=== PATIENT | male | born 1970 | race Caucasian/White ===

== ENCOUNTER 2017-04-14 19:10 | Inpatient (IN) | payer OTHER ==
[~2017-04-14] VITALS: Ht 175.3 cm; Wt 90.0 kg
[2017-04-14 19:18] VITALS: BP 145/96; PULSE 120; RESP 24; TEMP 98.4; O2SAT 95
[2017-04-14 19:23] VITALS: RESP 24; O2SAT 91
[2017-04-14] MEDS ORDERED: ONDANSETRON HCL 4 MG/2 ML VIAL IV PUSH ONE (19:30)
[2017-04-14] MEDS ORDERED: HYDROmorphone HCL PF 1 MG/ML VIAL IV PUSH ONE (19:30)
[2017-04-14] MEDS ORDERED: ASPIRIN 325 MG TAB PO ONE (19:30)
--- NOTE | 2017-04-14 19:38 | PD ---
Physical Exam Narrative General: The patient is a well-developed well-nourished male, uncomfortable appearing on arrival related to pain reportedly on the left lateral chest. Head and Neck exam: Head is normocephalic atraumatic. Eyes: EOMI, pupils are equal round and reactive to light. Nose: Midline septum with pink mucous membranes Mouth: Dentition unremarkable. Moist mucus membranes. Posterior oropharynx is not erythematous. No tonsillar hypertrophy. Uvula midline. Airway patent. Neck: No palpable lymphadenopathy. No nuchal rigidity. No thyromegaly. Cardiovascular: Sinus tachycardia in the low 100 without murmurs, gallops, or rubs. No pulse deficit to the extremities and femoral tenderness auscultation and palpation of his radial artery. No chest wall tenderness on palpation. No step-off or crepitus. No erythema or ecchymosis. Lungs: The patient is splinting his breathing. The patient has no wheezes, rhonchi, or crackles audible. The patient has diminished breath sounds on the left lower lung base compared to the left side. Abdomen: Soft, without tenderness to palpation in all 4 quadrants of the abdomen. No guarding, rebound, or rigidity. Normal bowel sounds are audible. No tenderness on palpation of McBurney's point. Negative Dodd sign. Extremities: No clubbing, cyanosis, or edema. 2+ pulses in all 4 extremities. No calf tenderness on palpation. Negative Homans sign. No palpable cords. Back: No costovertebral angle tenderness to palpation. Neurologic Exam: Grossly nonfocal. Skin Exam: No rash noted. Intact skin that is warm and dry. Data Data Last Documented VS Vital Signs Date Time Temp Pulse Resp B/P Pulse Ox O2 Delivery O2 Flow Rate FiO2 04/14/17 20:00 145/96 147/94 04/14/17 19:23 24 91 Room Air 04/14/17 19:23 3 04/14/17 19:18 98.4 120 Orders Electrocardiogram (04/14/17 19:18) Basic Metabolic Panel (Bmp) (04/14/17 19:18) Ckmb (Isoenzyme) Profile (04/14/17 19:18) Complete Blood Count With Diff (04/14/17 19:18) Magnesium (Mg) (04/14/17 19:18) Prothrombin Time / Inr (Pt) (04/14/17 19:18) Act Partial Throm Time (Ptt) (04/14/17 19:18) Troponin I (04/14/17 19:18) Lipase (04/14/17 19:18) Chest, Single Ap (04/14/17 19:18) Ecg Monitoring (04/14/17 19:18) Bilateral Bp Monitoring (04/14/17 19:18) Iv Access Insert/Monitor (04/14/17 19:18) Oximetry (04/14/17 19:18) Oxygen Administration (04/14/17 19:18) Aspirin (Aspirin) (04/14/17 19:30) Ct Pulmonary Angiogram (04/14/17 19:18) Hydromorphone Pf Inj (Dilaudid Pf Inj) (04/14/17 19:30) Ondansetron Inj (Zofran Inj) (04/14/17 19:30) Blood Culture (04/14/17 19:52) Lactic Acid Sepsis Protocol (04/14/17 19:52) Ceftriaxone Inj (Rocephin Inj) (04/14/17 20:00) Azithromycin Inj (Zithromax Inj) (04/14/17 20:00) Protein Corrected Calcium(Pcc) (04/14/17 19:35) Calcium Gluconate Inj (Calcium Gluconate (04/14/17 20:30) Arterial Blood Gas (Abg) (04/14/17 ) Potassium Chloride (Kcl) (04/14/17 21:00) Iohexol 350 Inj (Omnipaque 350 Inj) (04/14/17 21:24) B-Type Natriuretic Peptide (04/14/17 21:54) Admit Order (Ed Use Only) (04/14/17 21:57) Labs Laboratory Tests Test 04/14/17 04/14/17 04/14/17 19:35 20:40 20:47 White Blood Count 15.1 TH/MM3 Red Blood Count 4.29 MIL/MM3 Hemoglobin 12.0 GM/DL Hematocrit 36.6 % Mean Corpuscular Volume 85.3 FL Mean Corpuscular Hemoglobin 28.0 PG Mean Corpuscular Hemoglobin 32.8 % Concent Red Cell Distribution Width 14.1 % Platelet Count 338 TH/MM3 Mean Platelet Volume 8.1 FL Neutrophils (%) (Auto) 68.5 % Lymphocytes (%) (Auto) 19.0 % Monocytes (%) (Auto) 6.4 % Eosinophils (%) (Auto) 4.9 % Basophils (%) (Auto) 1.2 % Neutrophils # (Auto) 10.4 TH/MM3 Lymphocytes # (Auto) 2.9 TH/MM3 Monocytes # (Auto) 1.0 TH/MM3 Eosinophils # (Auto) 0.7 TH/MM3 Basophils # (Auto) 0.2 TH/MM3 CBC Comment AUTO DIFF Differential Comment AUTO DIFF CONFIRMED Prothrombin Time 10.6 SEC Prothromb Time International 1.0 RATIO Ratio Activated Partial 26.4 SEC Thromboplast Time Sodium Level 143 MEQ/L Potassium Level 2.9 MEQ/L Chloride Level 114 MEQ/L Carbon Dioxide Level 20.3 MEQ/L Anion Gap 9 MEQ/L Blood Urea Nitrogen 15 MG/DL Creatinine 0.45 MG/DL Estimat Glomerular Filtration 200 ML/MIN Rate Random Glucose 79 MG/DL Calcium Level 5.9 MG/DL Protein Corrected Calcium 6.7 MG/DL Magnesium Level 1.5 MG/DL Total Creatine Kinase 50 U/L Troponin I LESS THAN 0.02 NG/ML B-Type Natriuretic Peptide 6 PG/ML Total Protein 5.2 GM/DL Lipase 99 U/L Blood Gas Puncture Site RT RADIAL Blood Gas Patient Temperature 98.6 Blood Gas HCO3 24 mmol/L Blood Gas Base Excess -0.2 mmol/L Blood Gas Oxygen Saturation 92 % Arterial Blood pH 7.38 Arterial Blood Partial 43 mmHg Pressure CO2 Arterial Blood Partial 71 mmHG Pressure O2 Arterial Blood Oxygen Content 17.9 Vol % Arterial Blood 0.7 % Carboxyhemoglobin Arterial Blood Methemoglobin 0.9 % Blood Gas Hemoglobin 13.8 G/DL Oxygen Delivery Device NASAL CANNULA Blood Gas Liter Flow 4 L/M Lactic Acid Level 0.7 mmol/L [facility] Medical Record Reviewed: Yes Supervised Visit with CONCEPCIÓN: Yes Interpretation(s) Last Impressions Chest X-Ray 04/14/171917 Signed Impressions: Service Date/Time: Friday, April 14, 2017 19:28 - CONCLUSION: 1. Left basal airspace disease. Differential diagnosis includes pneumonia. Minimal right basilar atelectasis. Rowdy Mckinley MD CT Angiography 04/14/171917 Signed Impressions: Service Date/Time: Friday, April 14, 2017 21:22 - CONCLUSION: 1. Study limited by motion artifact and contrast bolus but no large central emboli are identified. 2. Moderate left effusion and compressive atelectasis posteriorly in the left lung. Moderate coronary calcifications. Rowdy Mckinley MD Narrative Course I, Dr. Alvarez, have reviewed the advance practice practitioner's documentation and am in agreement, met with the patient face to face, made the diagnosis, and the medical decision making was done by me. The patient was initially evaluated by Moises. Please see his complete history and physical. *My assessment and Findings: The patient is a 47-year-old male who presents to [facility] emergency Department with a history of sudden onset of left lower lateral chest pain while driving prior to arrival. The patient reports that he's been sick for the last couple of weeks. Initially he began to have a generalized rash that was thought to be related to a contact dermatitis treated with topical steroids and then oral antibiotic of Bactrim due to concern for superimposed bacterial infection. Then, a week ago the patient developed a cough with congestion. He reports that the cough is intermittently been productive of felix sputum. He denies smoking. He reports that in childhood he did have some respiratory problems related to allergies, however he denies any recent respiratory problems. The patient reports that he completed his Bactrim course of week ago. The patient denies having any history of DVT, PE, or coronary artery disease. He denies having any family history of DVT or PE. During the course of the patients emergency department visit, the patients history, examination, and differential diagnosis were reviewed with the patient. The patient had IV access obtained and blood work sent for analysis. The patient was placed on a vehicle monitor technician with oximetry and blood pressure monitoring. A chest x-ray was done. The patient was initially provided hydromorphone for pain, Zofran for nausea. The patients laboratory studies were reviewed and remarkable for a white count of 15.1, hemoglobin 12, platelets 338 with 4.9 eosinophils, CMP is remarkable for potassium of 2.9 which was supplemented orally, CO2 20.3, BUN 15, creatinine 0.45, lactic acid 0.7, calcium 5.9, protein corrected calcium 6.7, CPK 50, troponin I less than 0.02, BNP is 6, lipase 99, PT PTT within normal limits. Radiology studies were reviewed and remarkable for a chest x-ray that shows a left basilar airspace abnormality which could be related to pneumonia given the patient's recent cough. The patient had blood cultures 2 ordered. The patient was given Rocephin 1 g IV, Zithromax 500 IV. CTA to rule out pulmonary embolism shows a that was limited by motion artifact and contrast bolus, but no large central emboli are identified. Moderate left effusion and compressive atelectasis posteriorly in the left lung. Moderate coronary calcifications. The patients results were discussed with the patient, including the plan of care. I explained that further testing and/ or monitoring is indicated based on the patients history, examination, and/ or laboratory findings. Therefore, I recommended admission for additional evaluation. The patient expressed understanding and was agreeable with this plan. The patient was admitted to the hospital in guarded condition and sent to a bed under the care of the [facility]. Sepsis Criteria SIRS Criteria (2 or more): Heart rate over 90, RR > 20 or PaCO2 < 32, WBC > 57815, < 4000 or > 10% bands Sepsis Criteria (SIRS+source): Infect source susp/known Criteria Outcome: Meets SIRS criteria, Meets sepsis criteria Diagnosis Primary Impression: Pleural effusion Additional Impression: Shortness of breath Marley Alvarez MD Apr 14, 2017 19:38
--- NOTE | 2017-04-14 19:38 | PD ---
HPI Chief Complaint: Abdominal Pain Time Seen by Provider: 19:35 Travel History International Travel<30 days: No Contact w/Intl Traveler<30days: No Traveled to known affect area: No History of Present Illness HPI 47-year-old male that presents to the ED for evaluation of severe left rib pain. Per patient is [place] The patient was so severe he had to stop his car and he called the ambulance on the way. Ambulance brought him here. Per patient the pain is a result with touch and has a similar shortness of breath. No history of this in the past. No history of heart disease. No radiation of the pain. Patient is diaphoretic. Patient was given morphine with minimal relief of his discomfort. He denies any lightheadedness or dizziness. He states that the pain is 10 out of 10. No history of this in the past. No history of blood clots. Takes no medications. Her blood pressure. States that he lives seen [place]. He has no allergies to medication. No abdominal pain. No urinary or bowel movement issues. PFSH Past Medical History Medical History: Denies Significant Hx Diminished Hearing: No Past Surgical History Surgical History: No Previous Surgery Social History Alcohol Use: No Tobacco Use: No (never) Substance Use: No Allergies-Medications (Allergen,Severity, Reaction): Coded Allergies: No Known Allergies (Unverified , 04/14/17) Review of Systems Except as stated in HPI: all other systems reviewed are Neg Physical Exam Narrative GENERAL: SKIN: Warm and dry. HEAD: Atraumatic. Normocephalic. EYES: Pupils equal and round. No scleral icterus. No injection or drainage. ENT: No nasal bleeding or discharge. Mucous membranes pink and moist. Tongue is midline. No uvula deviation. NECK: Trachea midline. No JVD. CARDIOVASCULAR: Regular rate and rhythm. No murmurs, S3, S4. RESPIRATORY: No accessory muscle use. Clear to auscultation. Breath sounds equal bilaterally. GASTROINTESTINAL: Abdomen soft, non-tender, nondistended. Hepatic and splenic margins not palpable. MUSCULOSKELETAL: Extremities without clubbing, cyanosis, or edema. No obvious deformities. Full range of motion of the upper and lower extremities bilaterally. 2+ pulses bilaterally. Patient has reproducible left rib pain. NEUROLOGICAL: Awake and alert. No obvious cranial nerve deficits. Motor grossly within normal limits. Five out of 5 muscle strength in the arms and legs. Normal speech. PSYCHIATRIC: Appropriate mood and affect; insight and judgment normal. Data Data Last Documented VS Vital Signs Date Time Temp Pulse Resp B/P Pulse Ox O2 Delivery O2 Flow Rate FiO2 04/14/17 20:00 145/96 147/94 04/14/17 19:23 24 91 Room Air 04/14/17 19:23 3 04/14/17 19:18 98.4 120 Orders Electrocardiogram (04/14/17 19:18) Basic Metabolic Panel (Bmp) (04/14/17 19:18) Ckmb (Isoenzyme) Profile (04/14/17 19:18) Complete Blood Count With Diff (04/14/17 19:18) Magnesium (Mg) (04/14/17 19:18) Prothrombin Time / Inr (Pt) (04/14/17 19:18) Act Partial Throm Time (Ptt) (04/14/17 19:18) Troponin I (04/14/17 19:18) Lipase (04/14/17 19:18) Chest, Single Ap (04/14/17 19:18) Ecg Monitoring (04/14/17 19:18) Bilateral Bp Monitoring (04/14/17 19:18) Iv Access Insert/Monitor (04/14/17 19:18) Oximetry (04/14/17 19:18) Oxygen Administration (04/14/17 19:18) Aspirin (Aspirin) (04/14/17 19:30) Ct Pulmonary Angiogram (04/14/17 19:18) Hydromorphone Pf Inj (Dilaudid Pf Inj) (04/14/17 19:30) Ondansetron Inj (Zofran Inj) (04/14/17 19:30) Blood Culture (04/14/17 19:52) Lactic Acid Sepsis Protocol (04/14/17 19:52) Ceftriaxone Inj (Rocephin Inj) (04/14/17 20:00) Azithromycin Inj (Zithromax Inj) (04/14/17 20:00) Protein Corrected Calcium(Pcc) (04/14/17 19:35) Calcium Gluconate Inj (Calcium Gluconate (04/14/17 20:30) Arterial Blood Gas (Abg) (04/14/17 ) Potassium Chloride (Kcl) (04/14/17 21:00) Iohexol 350 Inj (Omnipaque 350 Inj) (04/14/17 21:24) B-Type Natriuretic Peptide (04/14/17 21:54) Admit Order (Ed Use Only) (04/14/17 21:57) Labs Laboratory Tests Test 04/14/17 04/14/17 04/14/17 19:35 20:40 20:47 White Blood Count 15.1 TH/MM3 Red Blood Count 4.29 MIL/MM3 Hemoglobin 12.0 GM/DL Hematocrit 36.6 % Mean Corpuscular Volume 85.3 FL Mean Corpuscular Hemoglobin 28.0 PG Mean Corpuscular Hemoglobin 32.8 % Concent Red Cell Distribution Width 14.1 % Platelet Count 338 TH/MM3 Mean Platelet Volume 8.1 FL Neutrophils (%) (Auto) 68.5 % Lymphocytes (%) (Auto) 19.0 % Monocytes (%) (Auto) 6.4 % Eosinophils (%) (Auto) 4.9 % Basophils (%) (Auto) 1.2 % Neutrophils # (Auto) 10.4 TH/MM3 Lymphocytes # (Auto) 2.9 TH/MM3 Monocytes # (Auto) 1.0 TH/MM3 Eosinophils # (Auto) 0.7 TH/MM3 Basophils # (Auto) 0.2 TH/MM3 CBC Comment AUTO DIFF Differential Comment AUTO DIFF CONFIRMED Prothrombin Time 10.6 SEC Prothromb Time International 1.0 RATIO Ratio Activated Partial 26.4 SEC Thromboplast Time Sodium Level 143 MEQ/L Potassium Level 2.9 MEQ/L Chloride Level 114 MEQ/L Carbon Dioxide Level 20.3 MEQ/L Anion Gap 9 MEQ/L Blood Urea Nitrogen 15 MG/DL Creatinine 0.45 MG/DL Estimat Glomerular Filtration 200 ML/MIN Rate Random Glucose 79 MG/DL Calcium Level 5.9 MG/DL Protein Corrected Calcium 6.7 MG/DL Magnesium Level 1.5 MG/DL Total Creatine Kinase 50 U/L Troponin I LESS THAN 0.02 NG/ML Total Protein 5.2 GM/DL Lipase 99 U/L Blood Gas Puncture Site RT RADIAL Blood Gas Patient Temperature 98.6 Blood Gas HCO3 24 mmol/L Blood Gas Base Excess -0.2 mmol/L Blood Gas Oxygen Saturation 92 % Arterial Blood pH 7.38 Arterial Blood Partial 43 mmHg Pressure CO2 Arterial Blood Partial 71 mmHG Pressure O2 Arterial Blood Oxygen Content 17.9 Vol % Arterial Blood 0.7 % Carboxyhemoglobin Arterial Blood Methemoglobin 0.9 % Blood Gas Hemoglobin 13.8 G/DL Oxygen Delivery Device NASAL CANNULA Blood Gas Liter Flow 4 L/M Lactic Acid Level 0.7 mmol/L MDM Medical Decision Making Medical Screen Exam Complete: Yes Emergency Medical Condition: Yes Medical Record Reviewed: Yes Interpretation(s) CBC & BMP Diagram 04/14/17 19:35 EKG shows sinus tachycardia. No sign of acute ischemia or arrhythmia read by me and attending. Last Impressions Chest X-Ray 04/14/171917 Signed Impressions: Service Date/Time: Friday, April 14, 2017 19:28 - CONCLUSION: 1. Left basal airspace disease. Differential diagnosis includes pneumonia. Minimal right basilar atelectasis. Rowdy Mckinley MD CT pulm shows no emboli, but moderate left effusion and compressive atelectasis posteriorly in the left lung. Moderate coronary calcifications. troponin and CKMB negative coags WNL Differential Diagnosis ACS versus PE versus pleurisy versus pneumothorax versus pneumonia versus ACS versus a typical chest pain versus pancreatitis Narrative Course 47-year-old male that presents to the ED for evaluation of severe left-sided chest pain. Patient was properly examined and was found to have signs and symptoms of unclear etiology. Definite concerning for ACS versus PE. Patient is tachycardic and diaphoretic with low oxygenation. Patient states having shortness of breath as well. No history of cardiac other than hypertension. Labs and imaging were ordered. Patient was ordered Dilaudid for pain as well as aspirin to cover for cardiac. Labs and imaging showed no pulmonary embolism but what appears to be a moderate left effusion on the left side. Case was discussed in my attending Dr. Alvarez who evaluated the patient with me and agrees with plan. She started the patient on antibiotics to cover for pneumonia. Patient will be admitted for further workup of the effusion and possible infection. Case was discussed with the patient and family who are in agreement with plan. JAZMIN was paged and Dr. Velasquez agrees to admission. Sepsis Criteria SIRS Criteria (2 or more): Heart rate over 90, WBC > 80530, < 4000 or > 10% bands Sepsis Criteria (SIRS+source): Infect source susp/known Criteria Outcome: Meets severe sepsis criteria Diagnosis Primary Impression: Pleural effusion Additional Impressions: Shortness of breath Sepsis Qualified Code: A41.9 - Sepsis, due to unspecified organism Admitting Information Admitting Physician Requests: Admit Coleman Em Apr 14, 2017 19:38
--- NOTE | 2017-04-14 19:49 | RADRPT ---
EXAM DATE/TIME: 04/14/2017 19:28 [facility] COMPARISON: No previous studies available for comparison. INDICATIONS : Left side chest pain, denies injury MEDICAL HISTORY : Hypertension. SURGICAL HISTORY : None. ENCOUNTER: Initial ACUITY: 1 day PAIN SCORE: 9/10 LOCATION: Left chest FINDINGS: There is some ill-defined airspace disease at the left lung base partially obscuring the left hemidia phragm. Minimal right basal atelectasis. No significant effusion. No pneumothorax. CONCLUSION: 1. Left basal airspace disease. Differential diagnosis includes pneumonia. Minimal right basilar atel ectasis. Rowdy Mckinley MD on April 14, 2017 at 19:46 Board Certified Radiologist. This report was verified electronically.
[2017-04-14 19:55] LABS: AUTOMATED NEUTROPHIL # 10.4 TH/MM3 (1.8-7.7); BASOPHIL # 0.2 TH/MM3 (0-0.2); BASOPHIL % 1.2 % (0.0-2.0); EOSINOPHIL # 0.7 TH/MM3 (0-0.4); EOSINOPHIL % 4.9 % (0.0-4.0); HEMATOCRIT 36.6 % (39.0-51.0); LYMPHOCYTE # 2.9 TH/MM3 (1.0-4.8); MEAN CELL VOLUME 85.3 FL (80.0-100.0); MEAN CORPUSCULAR HGB CONC 32.8 % (32.0-36.0); MONO % 6.4 % (0.0-8.0); NEUT % 68.5 % (16.0-70.0); PLATELET COUNT 338 TH/MM3 (150-450); RED BLOOD COUNT 4.29 MIL/MM3 (4.50-5.90); RED CELL DISTRIBUTION WIDTH 14.1 % (11.6-17.2); WHITE BLOOD COUNT 15.1 TH/MM3 (4.0-11.0)
[2017-04-14 19:58] LABS: HEMO FLAGS AUTO DIFF
[2017-04-14 20:00] VITALS: BP_SYST 145; BP_SYST 147; BP_DIAS 94; BP_DIAS 96
[2017-04-14] MEDS ORDERED: cefTRIAXone INJ 1,000 MG in SODIUM CHLORIDE 0.9% INJ 100 ML IV ONE (20:00)
[2017-04-14] MEDS ORDERED: AZITHROMYCIN INJ 500 MG in SODIUM CHLOR 0.9% 250 ML INJ 250 ML IV ONE (20:00)
[2017-04-14 20:09] LABS: APTT (PATIENT) 26.4 SEC (24.3-30.1); PROTHROMBIN TIME - PATIENT 10.6 SEC (9.8-11.6)
[2017-04-14 20:13] LABS: ANION GAP 9 MEQ/L (5-15); BICARBONATE 20.3 MEQ/L (21.0-32.0); BLOOD UREA NITROGEN 15 MG/DL (7-18); CHLORIDE 114 MEQ/L (98-107); GLOMERULAR FILTRATION RATE 200 ML/MIN (>89); MAGNESIUM 1.5 MG/DL (1.5-2.5); SODIUM (NA) 143 MEQ/L (136-145)
[2017-04-14] MEDS ORDERED: CALCIUM GLUCONATE INJ 1 GM in DEXTROSE 5% IN WATER 100ML INJ 100 ML IV ONE ×2 (20:30)
[2017-04-14 20:32] LABS: SCAN/DIFF AUTO DIFF CONFIRMED
[2017-04-14 20:55] LABS: BLOOD GAS BASE EXCESS -0.2 mmol/L (-2-2); BLOOD GAS CARBOXYHEMOGLOBIN 0.7 % (0-4); BLOOD GAS HCO3 24 mmol/L (22-26); BLOOD GAS METHEMOGLOBIN 0.9 % (0-2); BLOOD GAS O2 HGB SATURATION 92 % (90-100); BLOOD GAS OXYGEN CONTENT 17.9 Vol % (12.0-20.0); BLOOD GAS PCO2 43 mmHg (38-42); BLOOD GAS PO2 71 mmHG (61-120); BLOOD GAS TOTAL HGB 13.8 G/DL (12.0-16.0); CRITICAL VALUE NO; DRAW SITE RT RADIAL; LITER FLOW 4 L/M; NUMBER OF ARTERIAL PUNCTURES 1; OXYGEN DEVICE NASAL CANNULA; STAT YES; TEMP CORR TO 98.6; ULNAR PULSE PRESENT
[2017-04-14 20:57] LABS: CREATINE KINASE 50 U/L (39-308)
[2017-04-14 20:59] LABS: CALCIUM-PROTEIN CORRECTED 6.7 MG/DL (8.5-10.1); POTASSIUM 2.9 MEQ/L (3.5-5.1)
[2017-04-14] MEDS ORDERED: POTASSIUM CHLORIDE 10 MEQ CONTROLLED RELEASE TAB PO ONE (21:00)
[2017-04-14] MEDS ORDERED: IOHEXOL 350 MG/ML 10 ML VIAL (for RAD DIAG) IV ONE (21:24)
--- NOTE | 2017-04-14 21:41 | RADRPT ---
EXAM DATE/TIME: 04/14/2017 21:22 [facility] COMPARISON: No previous studies available for comparison. INDICATIONS : Left sided pain; dyspnea. IV CONTRAST: 80 cc Omnipaque 350 (iohexol) IV RADIATION DOSE: 23.17 CTDIvol (mGy) MEDICAL HISTORY : None SURGICAL HISTORY : None. ENCOUNTER: Initial ACUITY: 1 day PAIN SCALE: 10/10 LOCATION: Left lower chest TECHNIQUE: Volumetric scanning of the chest was performed using a pulmonary embolism protocol MIP images were re constructed. Using automated exposure control and adjustment of the mA and/or kV according to patien t size, radiation dose was kept as low as reasonably achievable to obtain optimal diagnostic quality images. DICOM format image data is available electronically for review and comparison. Follow-up recommendations for incidentally detected pulmonary nodules are based at a minimum on nodul e size and patient risk factors according to Fleischner Society Guidelines. FINDINGS: No filling defects identified centrally to suggest pulmonary embolic disease. Segmental vessels are n ot well evaluated due to motion artifact and contrast bolus. There is a moderate-sized left effusion and compressive atelectasis in the left posterior lung. No pn eumothorax. Heart size enlarged. Mild esophageal dilatation characteristic of an esophageal motility disorder. Moderate coronary calcifications. No acute findings in the upper abdomen. CONCLUSION: 1. Study limited by motion artifact and contrast bolus but no large central emboli are identified. 2. Moderate left effusion and compressive atelectasis posteriorly in the left lung. Moderate coronary calcifications. Rowdy Mckinley MD on April 14, 2017 at 21:36 Board Certified Radiologist. This report was verified electronically.
[2017-04-14] MEDS ORDERED: RESP: ALBUTEROL 2.5 MG/IPRATROPIUM 0.5 MG NEB (PRN) NEB (22:15)
[2017-04-14] MEDS ORDERED: BISACODYL 10 MG SUPP RECTAL PRN (22:15)
[2017-04-14] MEDS ORDERED: SODIUM CHLORIDE 0.9% FLUSH 10 ML FLUSH IV FLUSH PRN (22:15)
[2017-04-14] MEDS ORDERED: ONDANSETRON HCL 4 MG/2 ML VIAL IVP PRN (22:15)
[2017-04-14] MEDS ORDERED: LACTULOSE SYRUP 20 GM/30 ML CUP PO PRN (22:15)
[2017-04-14] MEDS ORDERED: MAGNESIUM HYDROXIDE SUSP 30 ML CUP PO PRN (22:15)
[2017-04-14] MEDS ORDERED: ACETAMINOPHEN 325 MG TAB PO PRN (22:15)
[2017-04-14] MEDS ORDERED: SENNOSIDES 8.6 MG TAB PO PRN (22:15)
--- NOTE | 2017-04-14 22:21 | HHI.HP ---
[facility] Unknown Admission Diagnosis acute left sided pleural effusion, SOB, sepsis Diagnoses: (1) Sepsis Diagnosis: Principal (2) PNA (pneumonia) Diagnosis: Principal (3) Pleural effusion Diagnosis: Principal (4) Hypocalcemia Diagnosis: Principal (5) Hypokalemia Diagnosis: Principal Travel History International Travel<30 Days: No Contact w/Intl Traveler <30 Da: No Traveled to Known Affected Are: No History of Present Illness This is a 47-year-old male with no significant PMH who was brought to the ER by EMS secondary to complaints of severe SOB and left-sided rib pain while driving on the highway. 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 No previous history of similar symptoms in the past. States he has been "feeling sick" x1 wk w/ subjective fever, chills and productive cough w/ yellow-mackenzie colored sputum. Did not seek medical attention for symptoms, not on antibiotics. Does report previous exposure to Poison [place], seen by [facility] [employer] and started on topical steroids with improvement. States symptoms started shortly after rash. On arrival, BP 145/96, HR 120, O2 sat 91% on RA, Afebrile. WBC 15.1. K+ 2.9. Ca 5.9. ABG unremarkable. CXR w/ left basal airspace disease, possibly pneumonia. CTA Pulm w/ no evidence of central emboli, moderate large effusion and compressive atelectasis on left w/ moderate coronary calcifications. S/p Rocephin/Zithro in ER. Pt denies h/o pleural effusion, no h/o CHF. Review of Systems Except as stated in HPI: all other systems reviewed are Neg ROS: 14 point review of systems otherwise negative. Past Family Social History Past Medical History PMH: None Past Surgical History PAST SURGICAL HISTORY: None Allergies: Coded Allergies: No Known Allergies (Unverified , 04/14/17) Family History PAST FAMILY HISTORY: Reviewed. No h/o DM or CAD Social History PAST SOCIAL HISTORY: Negative for alcohol, tobacco or drugs. Physical Exam Vital Signs Vital Signs Date Time Temp Pulse Resp B/P Pulse Ox O2 Delivery O2 Flow Rate FiO2 04/14/17 20:00 145/96 147/94 04/14/17 19:23 24 91 Room Air 04/14/17 19:23 96 Nasal Cannula 3 04/14/17 19:18 98.4 120 24 145/96 95 Physical Exam PE: GENERAL: Very pleasant middle-aged male in mild distress secondary to complaints of pain with inspiration, shallow breaths. HEENT: PERRLA, EOMI. No scleral icterus or conjunctival pallor. No lid lag or facial droop. CARDIOVASCULAR: Regular rate and rhythm. No obvious murmurs to auscultation. No chest tenderness to palpation. RESPIRATORY: No obvious rhonchi or wheezing. Clear to auscultation. Decreased breath sounds on the left. GASTROINTESTINAL: Abdomen soft, non-tender, nondistended. BS normal. MUSCULOSKELETAL: Extremities without clubbing, cyanosis, or edema. No obvious deformities. NEUROLOGICAL: Awake, alert and oriented x4. No focal neurologic deficits. Moving both upper and lower extremities spontaneously. Laboratory Laboratory Tests Test 04/14/17 04/14/17 04/14/17 19:35 20:40 20:47 White Blood Count 15.1 Red Blood Count 4.29 Hemoglobin 12.0 Hematocrit 36.6 Mean Corpuscular Volume 85.3 Mean Corpuscular Hemoglobin 28.0 Mean Corpuscular Hemoglobin 32.8 Concent Red Cell Distribution Width 14.1 Platelet Count 338 Mean Platelet Volume 8.1 Neutrophils (%) (Auto) 68.5 Lymphocytes (%) (Auto) 19.0 Monocytes (%) (Auto) 6.4 Eosinophils (%) (Auto) 4.9 Basophils (%) (Auto) 1.2 Neutrophils # (Auto) 10.4 Lymphocytes # (Auto) 2.9 Monocytes # (Auto) 1.0 Eosinophils # (Auto) 0.7 Basophils # (Auto) 0.2 CBC Comment AUTO DIFF Differential Comment AUTO DIFF CONFIRMED Prothrombin Time 10.6 Prothromb Time International 1.0 Ratio Activated Partial 26.4 Thromboplast Time Sodium Level 143 Potassium Level 2.9 Chloride Level 114 Carbon Dioxide Level 20.3 Anion Gap 9 Blood Urea Nitrogen 15 Creatinine 0.45 Estimat Glomerular Filtration 200 Rate Random Glucose 79 Calcium Level 5.9 Protein Corrected Calcium 6.7 Magnesium Level 1.5 Total Creatine Kinase 50 Troponin I LESS THAN 0.02 Total Protein 5.2 Lipase 99 Blood Gas Puncture Site RT RADIAL Blood Gas Patient Temperature 98.6 Blood Gas HCO3 24 Blood Gas Base Excess -0.2 Blood Gas Oxygen Saturation 92 Arterial Blood pH 7.38 Arterial Blood Partial 43 Pressure CO2 Arterial Blood Partial 71 Pressure O2 Arterial Blood Oxygen Content 17.9 Arterial Blood 0.7 Carboxyhemoglobin Arterial Blood Methemoglobin 0.9 Blood Gas Hemoglobin 13.8 Oxygen Delivery Device NASAL CANNULA Blood Gas Liter Flow 4 Lactic Acid Level 0.7 Date/Time Procedure Status Source Growth 04/14/17 20:45 Aerobic Blood Culture Received Blood Peripheral Pending 04/14/17 20:45 Anaerobic Blood Culture Received Blood Peripheral Pending Result Diagram: 04/14/17193404/14/171934 Assessment and Plan Problem List: (1) Sepsis ICD Code: A41.9 Status: Acute (2) PNA (pneumonia) ICD Code: J18.9 Status: Acute (3) Pleural effusion ICD Code: J90 Status: Acute (4) Hypocalcemia ICD Code: E83.51 Status: Acute (5) Hypokalemia ICD Code: E87.6 Status: Acute Assessment and Plan A/P: 1. Sepsis: HR 120's, RR 24, WBC 15, Source-presumed PNA. S/p Blood Culture, Rocephin/Zithro in ER. Follow up cultures, continue IV Abx. 2. PNA: CXR w/ basilar atelectasis possibly PNA, CTA negative for PE, moderate pleural effusion, images reviewed by me, unclear if underlying infiltrate. In light of sepsis, will continue w/ IV Abx for presumed PNA. DuoNeb prn. 3. Pleural Effusion: Moderate left-sided pleural effusion on CTA, images reviewed by me, no h/o similar symptoms. Consult IR for Thoracentesis- Diagnostic/Therapeutic, fluid culture/gram stain/cytology/protein... Pulmonology consulted by ER physician. Check Echo to eval for cardiac function- moderate coronary calcifications seen on imaging. 4. Hypokalemia: K+ 2.9, s/p replacement in ER, will recheck and replace as needed. 5. Hypocalcemia: Ca 5.9, corrected 6.7. Asymptomatic. S/p replacement, will recheck in am. 6. DVT Prophylaxis: SCD/Teds. 7. Social work for d/c planning as needed. 8. Case discussed w/ ER physician at length. Physician Certification 2 Midnight Certification Type: Admission for Inpatient Services Order for Inpatient Services The services are ordered in accordance with Medicare regulations or non- Medicare payer requirements, as applicable. In the case of services not specified as inpatient-only, they are appropriately provided as inpatient services in accordance with the 2-midnight benchmark. Estimated LOS (days): 2 days is the estimated time the patient will need to remain in the hospital, assuming treatment plan goals are met and no additional complications. Post-Hospital Plan: Not yet determined Problem Qualifiers (1) Sepsis: Qualified Code: A41.9 - Sepsis, due to unspecified organism Zoë Velasquez MD Apr 14, 2017 22:21
[2017-04-14 22:50] VITALS: O2SAT 95
[2017-04-15] VITALS (14 sets, daily range): BP systolic 109–140; BP diastolic 72–92; PULSE 89–120; RESP 16–24; TEMP 97.4–99.3; O2SAT 90–99
[2017-04-15] MEDS: ACETAMINOPHEN/HYDROcodone 325 MG/5 MG TAB PO PRN (00:12)
[2017-04-15] MEDS: MORPHINE SULFATE 4 MG/ML INJ IV PRN ×5 (01:59→22:27)
[2017-04-15 07:18] LABS: AUTOMATED NEUTROPHIL # 16.5 TH/MM3 (1.8-7.7); BASOPHIL # 0.2 TH/MM3 (0-0.2); BASOPHIL % 0.7 % (0.0-2.0); EOSINOPHIL # 0.1 TH/MM3 (0-0.4); EOSINOPHIL % 0.7 % (0.0-4.0); HEMATOCRIT 39.2 % (39.0-51.0); HEMO FLAGS DIFF FINAL; LYMPH % 11.8 % (9.0-44.0); LYMPHOCYTE # 2.5 TH/MM3 (1.0-4.8); MEAN CELL VOLUME 85.1 FL (80.0-100.0); MEAN CORPUSCULAR HEMOGLOBIN 28.3 PG (27.0-34.0); MEAN CORPUSCULAR HGB CONC 33.2 % (32.0-36.0); MONO % 7.8 % (0.0-8.0); PLATELET COUNT 363 TH/MM3 (150-450); RED CELL DISTRIBUTION WIDTH 14.8 % (11.6-17.2); WHITE BLOOD COUNT 20.9 TH/MM3 (4.0-11.0)
[2017-04-15 07:54] LABS: ALT (GPT) 68 U/L (12-78); ANION GAP 10 MEQ/L (5-15); AST (GOT) 15 U/L (15-37); BICARBONATE 24.6 MEQ/L (21.0-32.0); BLOOD UREA NITROGEN 15 MG/DL (7-18); CHLORIDE 98 MEQ/L (98-107); GLOMERULAR FILTRATION RATE 126 ML/MIN (>89); POTASSIUM 4.2 MEQ/L (3.5-5.1); SODIUM (NA) 133 MEQ/L (136-145)
[2017-04-15 08:01] LABS: ALKALINE PHOSPHATASE 72 U/L (45-117); CALCIUM-PROTEIN CORRECTED 8.7 MG/DL (8.5-10.1); TOTAL BILIRUBIN ADULT 0.3 MG/DL (0.2-1.0)
[2017-04-15] MEDS: guaiFENesin E.R. 600 MG TAB PO SCH ×2 (08:19→13:04)
[2017-04-15] MEDS: DOCUSATE SODIUM 50 MG/SENNA 8.6 MG TAB PO SCH ×2 (08:19→19:44)
[2017-04-15] MEDS: BUDESONIDE-FORMOTEROL 160/4.5 MCG INHALER INH SCH ×3 (09:00→22:39)
[2017-04-15] MEDS: SODIUM CHLORIDE 0.9% FLUSH 10 ML FLUSH IV FLUSH SCH ×2 (09:00→19:45)
[2017-04-15] MEDS ORDERED: LIDOCAINE HCL 1% PF 30 ML VIAL ONE (10:07)
[2017-04-15] MEDS ORDERED: fentaNYL CITRATE 250 MCG/5 ML AMP ONE (10:11)
[2017-04-15 11:30] LABS: TOTAL PROTEIN,PLEURAL FLUID 5.5 GM/DL
--- NOTE | 2017-04-15 11:34 | RADRPT ---
EXAM DATE/TIME: 04/15/2017 09:17 [facility] COMPARISON: No previous studies available for comparison. INDICATIONS : Shortness of breath. Left pleural effusion. MEDICAL HISTORY : Shortness of breath. SURGICAL HISTORY : None. ENCOUNTER: Initial ACUITY: 1 day PAIN SCORE: 3/10 LOCATION: Left chest FLUID: Total volume of 0 cc of fluid was removed. TECHNIQUE: 1. Ultrasound guidance for thoracentesis. 2. Thoracentesis. The risks, benefits, and alternatives to ultrasound guided thoracentesis were explained to the patien t in lay simple terms, including the risk of bleeding and infection. Written and verbal informed con sent was obtained. Appropriate area for thoracentesis was marked under ultrasound guidance with the patient in the uprig ht position. Overlying skin was prepped and draped in the usual sterile fashion and with local anest hetic, a dermatotomy was made with an 11 blade scalpel. 6-Gibraltarian catheter was placed and no fluid could be removed. Patient was then transferred to CT for CT guided thoracentesis with sedation. CONCLUSION: Unsuccessful ultrasound guided thoracentesis. Lobo Dominguez MD FACR on April 15, 2017 at 11:30 Board Certified Radiologist. This report was verified electronically.
--- NOTE | 2017-04-15 11:35 | RADRPT ---
EXAM DATE/TIME: 04/15/2017 11:14 [facility] COMPARISON: CHEST SINGLE AP, April 14, 2017, 19:28. INDICATIONS : Post thoracentesis MEDICAL HISTORY : Hypertension. SURGICAL HISTORY : None. ENCOUNTER: Initial ACUITY: 1 day PAIN SCORE: 5/10 LOCATION: Left chest FINDINGS: Significant consolidation on the left without pneumothorax. The right lung is clear. The heart and pulmonary vascularity are normal. CONCLUSION: Significant consolidation on left without pneumothorax. Lobo Dominguez MD FACR on April 15, 2017 at 11:33 Board Certified Radiologist. This report was verified electronically.
--- NOTE | 2017-04-15 11:47 | RADRPT ---
EXAM DATE/TIME: 04/15/2017 09:57 INDICATIONS : Left pleural effusion. DEVICE(S): 1.) 6 Fr [id number] FLUID: Total volume of 300 cc of clear, yellow fluid was removed. Fluid was sent for laboratory ordered studies. MEDICAL HISTORY : None. SURGICAL HISTORY : None. ENCOUNTER: Initial ACUITY: 1 day PAIN SCORE: 10/10 LOCATION: Left chest PROCEDURE: 1. CT guided left thoracentesis. The site was prepped in sterile fashion. Full sterile technique was used, including cap, mask, steri le gloves and gown and a large sterile sheet. Hand hygiene and 2% chlorhexidine and/or betadine/alco hol prep was utilized per protocol for cutaneous antisepsis. The skin and subcutaneous tissues were infiltrated with local anesthetic solution. Using automated exposure control and adjustment of the mA and/or kV according to patient size, radiation dose was kept as low as reasonably achievable to obta in optimal diagnostic quality images. DICOM format image data is available electronically for review and comparison. After failed attempt at ultrasound guided thoracentesis patient was brought to the CT suite the 6-Valeriano nch catheter placed in left pleural space with intravenous sedation. 300 cc of dark clear fluid were removed and sent for studies. Followup CT shows significant consolidation of left lung without pneumothorax. The patient tolerated the procedure well and there were no complications. The patient was sent to [facility] for recovery. CONCLUSION: Uncomplicated CT-guided left thoracentesis. Lobo Dominguez MD FACR on April 15, 2017 at 11:44 Board Certified Radiologist. This report was verified electronically.
[2017-04-15 12:34] LABS: PLEURAL FLUID LYMPHS 8 %
--- NOTE | 2017-04-15 12:57 | HHI.PR ---
Subjective Remarks Pt has pain w inspiration. he just got back from CT where he states they removed 400cc of purulent drainage. denies any nausea or vomiting. asks when he could go home. would like to eat Objective Vitals Vital Signs Date Time Temp Pulse Resp B/P Pulse Ox O2 Delivery O2 Flow Rate FiO2 04/15/17 11:30 113 24 130/74 93 04/15/17 11:00 111 22 109/74 95 04/15/17 10:45 111 20 128/72 93 04/15/17 10:30 98.0 120 24 129/82 93 04/15/17 09:31 99.2 114 16 129/76 92 04/15/17 08:23 93 Nasal Cannula 2.00 04/15/17 08:00 98.7 110 20 133/76 94 04/15/17 04:00 98.3 107 22 118/77 90 04/15/17 03:15 109 04/15/17 00:19 89 18 140/92 99 Nasal Cannula 2 04/15/17 00:00 97.4 105 18 115/74 90 04/14/17 22:50 95 Nasal Cannula 4.00 04/14/17 20:00 145/96 147/94 04/14/17 19:23 24 91 Room Air 04/14/17 19:23 96 Nasal Cannula 3 04/14/17 19:18 98.4 120 24 145/96 95 I/O 04/14/17 04/14/17 04/14/17 04/15/17 04/15/17 04/15/17 06:59 14:59 22:59 06:59 14:59 22:59 Intake Total 240 ml Output Total 0 ml Balance 240 ml Intake Oral 240 ml IV Total 0 ml Output Urine Total 0 ml Result Diagram: 04/15/17 0600 04/15/17 0600 Imaging Last Impressions Thoracentesis Ultrasound 04/15/17 0000 Signed Impressions: Service Date/Time: Saturday, April 15, 2017 09:17 - CONCLUSION: Unsuccessful ultrasound guided thoracentesis. Lobo Dominguez MD FACR Thoracentesis 04/15/17 0000 Signed Impressions: Service Date/Time: Saturday, April 15, 2017 09:57 - CONCLUSION: Uncomplicated CT-guided left thoracentesis. Lobo Dominguez MD FACR Chest X-Ray 04/15/17 0000 Signed Impressions: Service Date/Time: Saturday, April 15, 2017 11:14 - CONCLUSION: Significant consolidation on left without pneumothorax. Lobo Dominguez MD FACR CT Angiography 04/14/178 Signed Impressions: Service Date/Time: Friday, April 14, 2017 21:22 - CONCLUSION: 1. Study limited by motion artifact and contrast bolus but no large central emboli are identified. 2. Moderate left effusion and compressive atelectasis posteriorly in the left lung. Moderate coronary calcifications. Rowdy Mckinley MD Objective Remarks GENERAL: Very pleasant middle-aged male appears very tired and uncomfortable. HEENT: EOMI. CARDIOVASCULAR: Regular rate and rhythm. No obvious murmurs to auscultation. RESPIRATORY: No obvious rhonchi or wheezing. however taking very shallow breaths , decrease sounds on the left lower back GASTROINTESTINAL: Abdomen soft, non-tender, nondistended. BS normal. MUSCULOSKELETAL: Extremities without edema. No obvious deformities. NEUROLOGICAL: Awake, alert and oriented x4. No focal neurologic deficits. Moving both upper and lower extremities spontaneously. A/P Problem List: (1) Sepsis ICD Code: A41.9 Status: Acute (2) PNA (pneumonia) ICD Code: J18.9 Status: Acute (3) Pleural effusion ICD Code: J90 Status: Acute (4) Hypocalcemia ICD Code: E83.51 Status: Acute (5) Hypokalemia ICD Code: E87.6 Status: Acute Assessment and Plan 1. Sepsis: HR 120's, RR 24, WBC 15, Source-presumed PNA. Blood Culture neg x 1 day, pleural fluid cx pending. s/p CT guided thoracentesis (u/s guided was unsuccessful). Per pt 400cc were removed however report not yet available. continue Rocephin/Zithro. WBC up to 20 today. monitor. 2. PNA: CXR w/ basilar atelectasis possibly PNA, CTA negative for PE, moderate pleural effusion. continue w/ IV Abx. DuoNeb prn. 3. Pleural Effusion: Moderate left-sided pleural effusion on CTA. s/p thoracentesis. fluid sent for cx. Pulmonology consulted. Echo ordered. Encourage use of IS q1 hr while awake 4. Hypokalemia: K+ 2.9, resolved s/p replacement. 5. Hypocalcemia: Ca 5.9, corrected 6.7. Asymptomatic. S/p replacement, resolved. 6. DVT Prophylaxis: SCD/Teds.start heparin SQ. encourage ambulation Discharge Planning f/u on blood and fluid cx. pulm consult in place. d/c pending further work-up and clinical improvement. Problem Qualifiers (1) Sepsis: Qualified Code: A41.9 - Sepsis, due to unspecified organism Brianne Calzada MD Apr 15, 2017 12:57
[2017-04-15] MEDS: HEPARIN SODIUM - SQ 10,000 UNITS/ML VIAL SQ SCH ×2 (14:03→22:32)
[2017-04-15] MEDS: ACETAMINOPHEN/HYDROcodone 325 MG/10 MG TAB PO PRN ×2 (15:09→19:43)
--- NOTE | 2017-04-15 16:15 | EKG ---
Date Performed: 04/14/2017 Time Performed: 19:28:36 PTAGE: 47 years EKG: SINUS TACHYCARDIA ABNORMAL RHYTHM ECG NO PREVIOUS TRACING DOCTOR: Leonel Foote Interpretating Date/Time 04/15/2017 16:14:08
[2017-04-15] MEDS: AZITHROMYCIN INJ 500 MG in SODIUM CHLOR 0.9% 250 ML INJ 250 ML IV SCH (19:45)
[2017-04-15] MEDS: RESP: ALBUTEROL 2.5 MG/IPRATROPIUM 0.5 MG NEB (SCH) NEB (20:00)
[2017-04-15] MEDS ORDERED: cefTRIAXone INJ 1,000 MG in SODIUM CHLORIDE 0.9% INJ 100 ML IV SCH (22:00)
[2017-04-15] MEDS: D5-1/2 NS + KCL 20 MEQ INJ 1,000 ML IV SCH (22:29)
[2017-04-15] MEDS: CEFEPIME INJ 2,000 MG in SODIUM CHLORIDE 0.9% INJ 100 ML IV SCH (22:30)
[2017-04-15] MEDS: methylPREDNISolone SOD SUCC 40 MG/1 ML VIAL IV SCH (22:31)
[2017-04-16] VITALS (9 sets, daily range): BP systolic 118–128; BP diastolic 66–86; PULSE 99–114; RESP 18–20; TEMP 96.9–98.6; O2SAT 90–93
[2017-04-16] MEDS: RESP: ALBUTEROL 2.5 MG/IPRATROPIUM 0.5 MG NEB (SCH) NEB ×6 (00:01→20:05)
[2017-04-16] MEDS: methylPREDNISolone SOD SUCC 40 MG/1 ML VIAL IV SCH ×3 (05:55→17:29)
[2017-04-16] MEDS: HEPARIN SODIUM - SQ 10,000 UNITS/ML VIAL SQ SCH ×3 (05:56→21:05)
[2017-04-16] MEDS: CEFEPIME INJ 2,000 MG in SODIUM CHLORIDE 0.9% INJ 100 ML IV SCH ×3 (05:56→21:06)
[2017-04-16 06:50] LABS: AUTOMATED NEUTROPHIL # 7.3 TH/MM3 (1.8-7.7); BASOPHIL # 0.1 TH/MM3 (0-0.2); EOSINOPHIL # 0.5 TH/MM3 (0-0.4); EOSINOPHIL % 5.3 % (0.0-4.0); HEMATOCRIT 28.9 % (39.0-51.0); LYMPH % 17.2 % (9.0-44.0); LYMPHOCYTE # 1.8 TH/MM3 (1.0-4.8); MEAN CELL VOLUME 85.6 FL (80.0-100.0); MEAN CORPUSCULAR HEMOGLOBIN 28.7 PG (27.0-34.0); MEAN CORPUSCULAR HGB CONC 33.5 % (32.0-36.0); MONO % 5.8 % (0.0-8.0); NEUT % 70.7 % (16.0-70.0); PLATELET COUNT 317 TH/MM3 (150-450); RED BLOOD COUNT 3.37 MIL/MM3 (4.50-5.90); RED CELL DISTRIBUTION WIDTH 17.5 % (11.6-17.2); WHITE BLOOD COUNT 10.3 TH/MM3 (4.0-11.0)
[2017-04-16 06:59] LABS: HEMO FLAGS AUTO DIFF
[2017-04-16 07:35] LABS: POTASSIUM 2.5 MEQ/L (3.5-5.1)
[2017-04-16 07:37] LABS: BANDS 1 % (0-6); BASOPHILS 2 % (0-2); EOSINOPHILS 3 % (0-4); METAMYELOCYTES 1 % (0-1); MYELOCYTES 2 % (0-0); NEUTROPHIL # MANUAL DIFF 8.1 TH/MM3 (1.8-7.7); POLYS (SEG NEUTROPHILS) 75 % (16-70); WBC DIFF SAMPLE 100
[2017-04-16 07:38] LABS: PLATELET ESTIMATE SMEAR NORMAL (NORMAL); PLATELET MORPHOLOGY NORMAL (NORMAL); SCAN/DIFF FINAL DIFF MANUAL
[2017-04-16] MEDS ORDERED: POTASSIUM CHLOR 10 MEQ PREMIX 100 ML IV ONE (08:15)
[2017-04-16] MEDS ORDERED: POTASSIUM CHLORIDE 10 MEQ CONTROLLED RELEASE TAB PO ONE (08:15)
[2017-04-16] MEDS: SODIUM CHLORIDE 0.9% FLUSH 10 ML FLUSH IV FLUSH SCH ×2 (09:00→21:11)
[2017-04-16] MEDS: DOCUSATE SODIUM 50 MG/SENNA 8.6 MG TAB PO SCH ×2 (09:10→21:00)
[2017-04-16] MEDS: guaiFENesin E.R. 600 MG TAB PO SCH ×2 (09:10→21:08)
[2017-04-16] MEDS: BUDESONIDE-FORMOTEROL 160/4.5 MCG INHALER INH SCH ×4 (09:13→21:07)
[2017-04-16] MEDS: ACETAMINOPHEN/HYDROcodone 325 MG/10 MG TAB PO PRN ×2 (10:47→18:26)
--- NOTE | 2017-04-16 11:56 | MB ---
cc: Fabricio ALVAREZ M.D. DATE OF CONSULTATION: 04/15/2017 REASON FOR CONSULTATION Pneumonia and pleural effusion. HISTORY OF PRESENT ILLNESS This is a 47-year-old white male who has been admitted through the emergency room with complaints of shortness of breath and left-sided chest pain. The patient has been having some left rib pain for the past 2 days and apparently was having some fevers and chills and cough with yellowish-felix expectoration for the past 2-3 days. Upon arrival in the ER a chest CT was done which was negative for pulmonary embolus but had a moderate size pleural effusion. The patient had a thoracentesis done today with removal of over 300 ccs of dark fluid. Cultures are still pending. Meanwhile, he has been started on IV Zithromax and Rocephin 1 gram daily. The patient has some increased chest pain since the past few hours after his thoracentesis was done and is unable to catch a deep breath. His white count is now up to 20,000. He still has a cough, no hemoptysis. Denies any abdominal pain, nausea, vomiting. PAST MEDICAL HISTORY The patient's past history is significant for: 1. History of asthma as a child. He has not had asthmatic attacks since he was a teenager. 2. Denies prior history of pneumonia. PAST SURGICAL HISTORY None. ALLERGIES No drug allergies listed. FAMILY HISTORY The patient states his father has a history of coronary artery disease and hypertension, mother in good health. HABITS The patient does not smoke but drinks alcohol moderately. REVIEW OF SYSTEMS The patient has gained weight. He has pains along the chest and back. Denies abdominal pain. Denies GI bleed. No leg or calf muscle pains. He has no skin rash. No headaches or blackouts. No depression or anxiety. PHYSICAL EXAMINATION GENERAL: This is a well-built middle-aged white male who is in pain and seems somewhat anxious and tachypneic. VITAL SIGNS: Blood pressure 150/90, pulse is 112, respirations 24, temperature 99. HEENT: Head normocephalic. Pupils are reactive and equal. Tongue is moist. Throat is injected. Nasal mucosa is clear. NECK: Supple. No bruits or lymphadenopathy or thyromegaly. CHEST: Distant breath sounds over the left chest with occasional crackles in the left mid chest. There are inspiratory and expiratory wheezes scattered throughout both lung roth. HEART: Heart sounds are regular, S1-S2. No murmur. No S3 gallop. ABDOMEN: The abdomen is soft, protuberant. No masses or organomegaly or tenderness. Bowel sounds are active. EXTREMITIES: No edema. No calf tenderness. Reflexes are 1+ with no gross motor deficits. The patient is alert and oriented. Skin was warm and dry. IMPRESSION 1. Left basilar pneumonia with left pleural effusion. 2. Asthmatic bronchitis. 3. Pleuritic chest pain. 4. Hypokalemia. 5. Sepsis. PLAN The patient was advised to submit his sputum for culture and Gram stain. We will also start him on IV cefepime 2 grams every 8 hours and continue with Zithromax 500 mg IV daily. The patient will be placed on Solu-Medrol 40 mg IV q. 6, DuoNeb solution with a nebulizer q.i.d. A bedside pulmonary function study will be obtained. Urine Legionella and pneumococcal antigens to be done. The patient will be placed on O2 at 2 liters nasal cannula, Symbicort 160/4.5 two puffs twice daily was added as well. Follow up chest x-ray to be done in the a.m. and a CBC as well. Thank you Dr. Velasquez for this consultation. MD RAVIN Wise/CONRAD /8:01 PM /11:33 AM
[2017-04-16] MEDS: D5-1/2 NS + KCL 20 MEQ INJ 1,000 ML IV SCH ×2 (12:00→21:07)
--- NOTE | 2017-04-16 12:32 | ECHRPT ---
Indication: heart failure CONCLUSIONS The left ventricular systolic function is hyperdynamic with an estimated ejection fraction in the ra nge of 65- 70%. Normal left ventricular size. Mild concentric left ventricular hypertrophy. Doppler parameters are consistent with impaired left ventricular relaxtion (grade 1 diastolic dysfun ction). No mitral valve regurgitation. No aortic valve regurgitation. No aortic valve stenosis. There is trace tricuspid valve regurgitation. The pulmonary valve is not well visualized. BP: / HR: Rhythm: MEASUREMENTS (Male / Female) Normal Values Technical Quality:Good 2D ECHO LV Diastolic Diameter PLAX 3.9 cm 4.2 - 5.9 / 3.9 - 5.3 cm LV Systolic Diameter PLAX 2.7 cm IVS Diastolic Thickness 1.9 cm 0.6 - 1.0 / 0.6 - 0.9 cm LVPW Diastolic Thickness 0.9 cm 0.6 - 1.0 / 0.6 - 0.9 cm LV Relative Wall Thickness 0.7 RV Internal Dim ED PLAX 2.7 cm M-MODE Aortic Root Diameter MM 2.7 cm LA Systolic Diameter MM 3.3 cm LA Ao Ratio MM 1.2 AV Cusp Separation MM 2.1 cm DOPPLER LV E' Lateral Velocity 18.8 cm/s LV E' Septal Velocity 15.2 cm/s FINDINGS LEFT VENTRICLE The left ventricular systolic function is hyperdynamic with an estimated ejection fraction in the ra nge of 65- 70%. Normal left ventricular size. Mild concentric left ventricular hypertrophy. Doppler parameters are consistent with impaired left ventricular relaxtion (grade 1 diastolic dysfun ction). RIGHT VENTRICLE Normal right ventricular size and systolic function. LEFT ATRIUM The left atrial size is normal. RIGHT ATRIUM The right atrial size is normal. ATRIAL SEPTUM Normal atrial septal thickness without atrial level shunting by limited color doppler interrogation. AORTA The aortic root and proximal ascending aorta are normal in size on limited imaging. MITRAL VALVE Structurally normal mitral valve. No mitral valve regurgitation. AORTIC VALVE Trileaflet aortic valve. No aortic valve regurgitation. No aortic valve stenosis. TRICUSPID VALVE Structurally normal tricuspid valve. There is trace tricuspid valve regurgitation. PULMONARY VALVE The pulmonary valve is not well visualized. VESSELS The inferior vena cava is normal in size. PERICARDIUM No pericardial effusion. Thony Belcher MD, FACC (Electronically Signed) Final Date:16 April 2017 12:31
[2017-04-16] MEDS: MORPHINE SULFATE 4 MG/ML INJ IV PRN ×2 (14:59→22:10)
--- NOTE | 2017-04-16 20:03 | HHI.PR ---
Subjective Remarks Less Chest pain. No fever. CXR shows a Left base infiltrate Pleural fluid was a Exudate . Culture is Neg so far. No hemoptysis Objective Vital Signs Date Time Temp Pulse Resp B/P Pulse Ox O2 Delivery O2 Flow Rate FiO2 04/16/17 16:08 96.9 103 18 123/75 92 04/16/17 12:00 97.1 111 20 118/66 90 04/16/17 08:00 96.9 99 18 128/78 92 04/16/17 07:51 92 Nasal Cannula 4.00 04/16/17 06:49 111 04/16/17 04:00 98.6 101 20 118/86 92 04/16/17 00:00 97.9 114 20 118/72 92 04/15/17 20:00 99.3 114 20 123/79 92 I/O 04/15/17 04/15/17 04/15/17 04/16/17 04/16/17 04/16/17 07:00 15:00 23:00 07:00 15:00 23:00 Intake Total 240 ml 0 ml 360 ml 1144 ml 1814 ml Output Total 0 ml Balance 240 ml 0 ml 360 ml 1144 ml 1814 ml Intake Oral 240 ml 0 ml 360 ml 240 ml 1000 ml IV Total 0 ml 0 ml 904 ml 814 ml Output Urine Total 0 ml # Voids 3 2 4 # Bowel Movements 1 Result Diagram: 04/16/17 0610 04/16/17 0610 Objective Remarks GENERAL: This is a well-built middle-aged white male who is in pain and seems somewhat anxious and tachypneic. HEENT: Head normocephalic. Pupils are reactive and equal. Tongue is moist. Throat is injected. Nasal mucosa is clear. NECK: Supple. No bruits or lymphadenopathy or thyromegaly. CHEST: Distant breath sounds over the left chest with occasional crackles in the left mid chest. There are inspiratory and expiratory wheezes scattered throughout both lung roth. HEART: Heart sounds are regular, S1-S2. No murmur. No S3 gallop. ABDOMEN: The abdomen is soft, protuberant. No masses or organomegaly or tenderness. Bowel sounds are active. EXTREMITIES: No edema. No calf tenderness. Reflexes are 1+ with no gross motor deficits. The patient is alert and oriented. Skin was warm and dry. Assessment and Plan Assessment and Plan IMPRESSION 1. Left basilar pneumonia with left pleural effusion.Poss Empyema 2. Asthmatic bronchitis. 3. Pleuritic chest pain. 4. Hypokalemia. 5. Sepsis. Plan : 1. Continue Cefipime and Zithromax. 2. O2 at 3 L 3. Tapr solumedrol to 40 mg q8h 4. Nebsqid , duoneb 5. CBC,BMP,CXR in am 6. PFT when stable. 7. Consult thoracic surgery for decortication if Pleural Fluid persists Fabricio Lambert MD Apr 16, 2017 20:03
[2017-04-16] MEDS: AZITHROMYCIN INJ 500 MG in SODIUM CHLOR 0.9% 250 ML INJ 250 ML IV SCH (21:05)
--- NOTE | 2017-04-16 23:54 | HHI.PR ---
Subjective Remarks Patient seen this morning around 10 AM. States that left-sided chest pain previously present has resolved, however still painful with deep breath. Objective Vital Signs Date Time Temp Pulse Resp B/P Pulse Ox O2 Delivery O2 Flow Rate FiO2 04/16/17 20:08 93 Nasal Cannula 4.00 04/16/17 16:08 96.9 103 18 123/75 92 04/16/17 12:00 97.1 111 20 118/66 90 04/16/17 08:00 96.9 99 18 128/78 92 04/16/17 07:51 92 Nasal Cannula 4.00 04/16/17 06:49 111 04/16/17 04:00 98.6 101 20 118/86 92 04/16/17 00:00 97.9 114 20 118/72 92 I/O 04/15/17 04/15/17 04/15/17 04/16/17 04/16/17 04/16/17 07:00 15:00 23:00 07:00 15:00 23:00 Intake Total 240 ml 0 ml 360 ml 1144 ml 1814 ml Output Total 0 ml Balance 240 ml 0 ml 360 ml 1144 ml 1814 ml Intake Oral 240 ml 0 ml 360 ml 240 ml 1000 ml IV Total 0 ml 0 ml 904 ml 814 ml Output Urine Total 0 ml # Voids 3 2 4 # Bowel Movements 1 Result Diagram: 04/16/17 0610 04/16/17 0610 Objective Remarks GENERAL: patient sitting up in chair. Appears comfortable. SKIN: Warm and dry. HEAD: Normocephalic. EYES: No scleral icterus. No injection or drainage. NECK: Supple, trachea midline. No JVD. CARDIOVASCULAR: Regular rate and rhythm without murmurs, gallops, or rubs. RESPIRATORY: Breath sounds equal bilaterally. No accessory muscle use. GASTROINTESTINAL: Abdomen soft, non-tender, nondistended. MUSCULOSKELETAL: No cyanosis, or edema. BACK: Nontender without obvious deformity. No CVA tenderness. A/P Assessment and Plan 04/16/17 White blood cells improved.Continue broad-spectrum antibiotics for empyema. Appreciate pulmonology assistance. -Hypokalemia. Potassium 2.5. Replaced. Follow-up labs tomorrow. //Sepsis: HR 120's, RR 24, WBC 15, Source-presumed PNA. Blood Culture neg x 1 day, pleural fluid cx pending. s/p CT guided thoracentesis (u/s guided was unsuccessful). Per pt 400cc were removed however report not yet available. -continue broad-spectrum antibiotics. - // PNA: CXR w/ basilar atelectasis possibly PNA, CTA negative for PE, moderate pleural effusion. continue w/ IV Abx. DuoNeb prn. //Empyema: -Moderate left-sided pleural effusion on CTA. -s/p thoracentesis. White blood cells 53141, RBCs 4000. Pleural LDH 824 -Continue antibiotics. -Follow up fluid cultures // Hypokalemia: K+ 2.5 -Continue to monitor and replace as necessary. // Hypocalcemia: Ca 5.9, corrected 6.7. Asymptomatic. S/p replacement, resolved. // DVT Prophylaxis: SCD/Teds.start heparin SQ. encourage ambulation Amos Gutierres MD Apr 16, 2017 23:54
[2017-04-17] VITALS (11 sets, daily range): BP systolic 118–154; BP diastolic 79–87; PULSE 94–120; RESP 17–21; TEMP 96.2–97.8; O2SAT 90–97
[2017-04-17] MEDS: RESP: ALBUTEROL 2.5 MG/IPRATROPIUM 0.5 MG NEB (SCH) NEB ×7 (00:02→23:43)
[2017-04-17] MEDS: methylPREDNISolone SOD SUCC 40 MG/1 ML VIAL IV SCH ×3 (04:11→22:12)
[2017-04-17] MEDS: CEFEPIME INJ 2,000 MG in SODIUM CHLORIDE 0.9% INJ 100 ML IV SCH ×3 (04:11→22:07)
[2017-04-17] MEDS: ACETAMINOPHEN/HYDROcodone 325 MG/10 MG TAB PO PRN ×3 (04:12→22:03)
[2017-04-17] MEDS: HEPARIN SODIUM - SQ 10,000 UNITS/ML VIAL SQ SCH ×3 (04:15→22:04)
--- NOTE | 2017-04-17 06:17 | RADRPT ---
EXAM DATE/TIME: 04/17/2017 06:04 [facility] COMPARISON: CHEST SINGLE AP, April 15, 2017, 11:14. INDICATIONS : Chest pain, infiltrate. MEDICAL HISTORY : Hypertension. SURGICAL HISTORY : None. ENCOUNTER: Subsequent ACUITY: 2 days PAIN SCORE: 0/10 LOCATION: Bilateral chest FINDINGS: Right lung is clear. There is consolidation in the left lower lobe, slightly improved since previous study. The cardiac silhouette is enlarged. Osseous structures are intact. CONCLUSION: Slight improved aeration left lung. Christ Baez MD on April 17, 2017 at 6:14 Board Certified Radiologist. This report was verified electronically.
[2017-04-17 07:25] LABS: AUTOMATED NEUTROPHIL # 27.7 TH/MM3 (1.8-7.7); BASOPHIL # 0.1 TH/MM3 (0-0.2); BASOPHIL % 0.2 % (0.0-2.0); HEMATOCRIT 33.7 % (39.0-51.0); LYMPH % 4.2 % (9.0-44.0); LYMPHOCYTE # 1.3 TH/MM3 (1.0-4.8); MEAN CELL VOLUME 83.8 FL (80.0-100.0); MEAN CORPUSCULAR HEMOGLOBIN 28.6 PG (27.0-34.0); MEAN CORPUSCULAR HGB CONC 34.1 % (32.0-36.0); NEUT % 90.6 % (16.0-70.0); PLATELET COUNT 385 TH/MM3 (150-450); RED BLOOD COUNT 4.02 MIL/MM3 (4.50-5.90); RED CELL DISTRIBUTION WIDTH 14.2 % (11.6-17.2); WHITE BLOOD COUNT 30.6 TH/MM3 (4.0-11.0)
[2017-04-17 07:41] LABS: BICARBONATE 24.8 MEQ/L (21.0-32.0); MAGNESIUM 2.5 MG/DL (1.5-2.5); POTASSIUM 4.7 MEQ/L (3.5-5.1)
[2017-04-17 07:52] LABS: HEMO FLAGS AUTO DIFF
[2017-04-17 08:32] LABS: BANDS 10 % (0-6); METAMYELOCYTES 2 % (0-1); NEUTROPHIL # MANUAL DIFF 29.4 TH/MM3 (1.8-7.7); POLYS (SEG NEUTROPHILS) 84 % (16-70); WBC DIFF SAMPLE 100
[2017-04-17 08:35] LABS: PLATELET ESTIMATE SMEAR NORMAL (NORMAL); PLATELET MORPHOLOGY NORMAL (NORMAL); SCAN/DIFF FINAL DIFF MANUAL
[2017-04-17] MEDS: SODIUM CHLORIDE 0.9% FLUSH 10 ML FLUSH IV FLUSH SCH ×2 (09:00→22:14)
[2017-04-17] MEDS: BUDESONIDE-FORMOTEROL 160/4.5 MCG INHALER INH SCH ×3 (09:00→22:13)
[2017-04-17] MEDS: guaiFENesin E.R. 600 MG TAB PO SCH ×2 (10:45→22:02)
[2017-04-17] MEDS: DOCUSATE SODIUM 50 MG/SENNA 8.6 MG TAB PO SCH ×2 (10:45→21:00)
[2017-04-17] MEDS: D5-1/2 NS + KCL 20 MEQ INJ 1,000 ML IV SCH ×2 (10:49→19:16)
--- NOTE | 2017-04-17 19:19 | HHI.PR ---
Subjective Remarks Less Chest pain. No fever. CXR shows improved left infiltrate Pleural fluid was a Exudate . Culture is Neg so far.WBC now at 30 K No hemoptysis Objective Vital Signs Date Time Temp Pulse Resp B/P Pulse Ox O2 Delivery O2 Flow Rate FiO2 04/17/17 16:10 93 Nasal Cannula 4.00 04/17/17 16:00 97.2 101 18 133/87 93 04/17/17 12:54 112 97 04/17/17 12:00 97.3 114 18 136/87 94 04/17/17 08:00 96.2 94 17 118/79 93 04/17/17 07:59 95 Nasal Cannula 4.00 04/17/17 00:04 90 Nasal Cannula 4.00 04/17/17 00:00 97.3 120 20 154/84 94 04/16/17 20:08 93 Nasal Cannula 4.00 04/16/17 20:00 98.0 104 18 122/78 92 I/O 04/16/17 04/16/17 04/16/17 04/17/17 04/17/17 04/17/17 07:00 15:00 23:00 07:00 15:00 23:00 Intake Total 1144 ml 1814 ml 360 ml 700 ml Balance 1144 ml 1814 ml 360 ml 700 ml Intake Oral 240 ml 1000 ml 360 ml 700 ml IV Total 904 ml 814 ml # Voids 2 4 2 6 # Bowel Movements 1 0 Result Diagram: 04/17/17 0555 04/17/17 0555 Objective Remarks GENERAL: This is a well-built middle-aged white male who is in pain and seems comfortable HEENT: Head normocephalic. Pupils are reactive and equal. Tongue is moist. Throat is injected. Nasal mucosa is clear. NECK: Supple. No bruits or lymphadenopathy or thyromegaly. CHEST: Distant breath sounds over the left chest with occasional crackles in the left mid chest. There are expiratory wheezes scattered throughout both lung roth. HEART: Heart sounds are regular, S1-S2. No murmur. No S3 gallop. ABDOMEN: The abdomen is soft, protuberant. No masses or organomegaly or tenderness. Bowel sounds are active. EXTREMITIES: No edema. No calf tenderness. Reflexes are 1+ with no gross motor deficits. The patient is alert and oriented. Skin was warm and dry. Assessment and Plan Assessment and Plan IMPRESSION 1. Left basilar pneumonia with left pleural effusion.Poss Empyema 2. Asthmatic bronchitis. 3. Pleuritic chest pain. 4. Hypokalemia. 5. Sepsis. Plan : 1. Continue Cefipime and Zithromax. 2. O2 at 3 L 3.Cont solumedrol to 40 mg q8h 4. Nebs qid , duoneb 5. CBC,BMP,CXR in am 6. PFT when stable. 7. Consult thoracic surgery for decortication 8.IS q3h. Fabricio Lambert MD Apr 17, 2017 19:19
--- NOTE | 2017-04-17 20:15 | HHI.PR ---
Subjective Remarks Admission seen this morning around 2 AM. Says he is breathing better today. Reports [place] chest pain is improving. Objective Vital Signs Date Time Temp Pulse Resp B/P Pulse Ox O2 Delivery O2 Flow Rate FiO2 04/17/17 16:10 93 Nasal Cannula 4.00 04/17/17 16:00 97.2 101 18 133/87 93 04/17/17 12:54 112 97 04/17/17 12:00 97.3 114 18 136/87 94 04/17/17 08:00 96.2 94 17 118/79 93 04/17/17 07:59 95 Nasal Cannula 4.00 04/17/17 00:04 90 Nasal Cannula 4.00 04/17/17 00:00 97.3 120 20 154/84 94 I/O 04/16/17 04/16/17 04/16/17 04/17/17 04/17/17 04/17/17 07:00 15:00 23:00 07:00 15:00 23:00 Intake Total 1144 ml 1814 ml 360 ml 700 ml Balance 1144 ml 1814 ml 360 ml 700 ml Intake Oral 240 ml 1000 ml 360 ml 700 ml IV Total 904 ml 814 ml # Voids 2 4 2 6 # Bowel Movements 1 0 Result Diagram: 04/17/17 0555 04/17/17 0555 Objective Remarks GENERAL: patient sitting up in chair. Appears comfortable. SKIN: Warm and dry. HEAD: Normocephalic. EYES: No scleral icterus. No injection or drainage. NECK: Supple, trachea midline. No JVD. CARDIOVASCULAR: Regular rate and rhythm without murmurs, gallops, or rubs. RESPIRATORY: Breath sounds equal bilaterally. No accessory muscle use.thoracentesis site without surrounding erythema. GASTROINTESTINAL: Abdomen soft, non-tender, nondistended. MUSCULOSKELETAL: No cyanosis, or edema. BACK: Nontender without obvious deformity. No CVA tenderness. A/P Assessment and Plan 04/17/17 Empyema/sepsis-White blood cell count worsened up to 30 today. X-ray shows improvement in aeration of left lung. Due to worsening leukocytosis, pulmonology has consulted cardiothoracic surgery. Cultures continue negative. Will start patient on clindamycin for anaerobic coverage //Hypokalemia. Potassium 4.7. Resolved. //Hypophosphatemia. 2.0. Mild. Replaced. //Sepsis: HR 120's, RR 24, WBC 15, Source-presumed PNA. Blood Culture neg x 1 day, pleural fluid cx pending. s/p CT guided thoracentesis (u/s guided was unsuccessful). Per pt 400cc were removed however report not yet available. continue Rocephin/Zithro. WBC up to 20 today. monitor. // PNA: CXR w/ basilar atelectasis possibly PNA, CTA negative for PE, moderate pleural effusion. continue w/ IV Abx. DuoNeb prn. //Empyema: -Moderate left-sided pleural effusion on CTA. -s/p thoracentesis. White blood cells 92263, RBCs 4000. Pleural LDH 824 -Continue antibiotics. -Azithromycin, cefepime, clindamycin -Follow up fluid cultures, continue negative to date - Thoracic surgery consult by pulmonology. Appreciate assistance. // Hypokalemia: Currently resolved after replacement. -Continue to monitor and replace as necessary. // Hypocalcemia: Ca 5.9, corrected 6.7. Asymptomatic. S/p replacement, resolved. // DVT Prophylaxis: SCD/Teds.start heparin SQ. encourage ambulation Discharge Planning when cleared by pulmonology. Amos Gutierres MD Apr 17, 2017 20:15
[2017-04-17] MEDS ORDERED: SODIUM PHOSPHATE INJ 15 MMOL in SODIUM CHLORIDE 0.9% INJ 150 ML IV ONE (22:00)
[2017-04-17] MEDS: CLINDAMYCIN INJ 900 MG in SODIUM CHLORIDE 0.9% INJ 100 ML IV SCH (22:06)
[2017-04-17] MEDS: AZITHROMYCIN INJ 500 MG in SODIUM CHLOR 0.9% 250 ML INJ 250 ML IV SCH (22:09)
[2017-04-18] VITALS (8 sets, daily range): BP systolic 122–146; BP diastolic 71–89; PULSE 89–110; RESP 17–22; TEMP 96.4–98.7; O2SAT 4–95
[2017-04-18] MEDS: RESP: ALBUTEROL 2.5 MG/IPRATROPIUM 0.5 MG NEB (SCH) NEB ×5 (03:37→19:26)
[2017-04-18] MEDS: CLINDAMYCIN INJ 900 MG in SODIUM CHLORIDE 0.9% INJ 100 ML IV SCH ×3 (05:58→16:12)
[2017-04-18] MEDS: CEFEPIME INJ 2,000 MG in SODIUM CHLORIDE 0.9% INJ 100 ML IV SCH ×3 (05:59→21:19)
[2017-04-18] MEDS: methylPREDNISolone SOD SUCC 40 MG/1 ML VIAL IV SCH (06:00)
[2017-04-18] MEDS: HEPARIN SODIUM - SQ 10,000 UNITS/ML VIAL SQ SCH ×3 (06:00→22:00)
[2017-04-18 07:02] LABS: BASOPHIL % 0.1 % (0.0-2.0); EOSINOPHIL % 0.1 % (0.0-4.0); HEMATOCRIT 33.3 % (39.0-51.0); LYMPH % 4.5 % (9.0-44.0); MEAN CELL VOLUME 85.3 FL (80.0-100.0); MEAN CORPUSCULAR HEMOGLOBIN 27.9 PG (27.0-34.0); MEAN CORPUSCULAR HGB CONC 32.7 % (32.0-36.0); MONO % 4.7 % (0.0-8.0); NEUT % 90.6 % (16.0-70.0); PLATELET COUNT 439 TH/MM3 (150-450); RED BLOOD COUNT 3.91 MIL/MM3 (4.50-5.90); RED CELL DISTRIBUTION WIDTH 14.6 % (11.6-17.2); WHITE BLOOD COUNT 22.1 TH/MM3 (4.0-11.0)
[2017-04-18 07:06] LABS: HEMO FLAGS AUTO DIFF
[2017-04-18 07:16] LABS: BICARBONATE 27.8 MEQ/L (21.0-32.0); MAGNESIUM 2.4 MG/DL (1.5-2.5); POTASSIUM 4.4 MEQ/L (3.5-5.1)
[2017-04-18] MEDS: D5-1/2 NS + KCL 20 MEQ INJ 1,000 ML IV SCH ×2 (07:35→18:43)
[2017-04-18 08:28] LABS: BANDS 8 % (0-6); MYELOCYTES 5 % (0-0); PLATELET ESTIMATE SMEAR NORMAL (NORMAL); PLATELET MORPHOLOGY NORMAL (NORMAL); POLYS (SEG NEUTROPHILS) 82 % (16-70); SCAN/DIFF FINAL DIFF MANUAL; WBC DIFF SAMPLE 100
[2017-04-18] MEDS: DOCUSATE SODIUM 50 MG/SENNA 8.6 MG TAB PO SCH ×2 (09:00→21:19)
[2017-04-18] MEDS: SODIUM CHLORIDE 0.9% FLUSH 10 ML FLUSH IV FLUSH SCH ×2 (09:00→21:00)
[2017-04-18] MEDS: guaiFENesin E.R. 600 MG TAB PO SCH ×2 (09:06→21:19)
[2017-04-18] MEDS: BUDESONIDE-FORMOTEROL 160/4.5 MCG INHALER INH SCH ×2 (09:07→21:23)
[2017-04-18] MEDS: ACETAMINOPHEN/HYDROcodone 325 MG/5 MG TAB PO PRN ×3 (09:09→18:41)
--- NOTE | 2017-04-18 12:29 | HHI.PR ---
Subjective Remarks Less Chest pain. No fever. CXR shows improved left infiltrate Pleural fluid was a Exudate . Culture is Neg so far.WBC now trending down No hemoptysis or fever Objective Vital Signs Date Time Temp Pulse Resp B/P Pulse Ox O2 Delivery O2 Flow Rate FiO2 04/18/17 12:00 98.7 103 18 142/83 95 04/18/17 08:34 92 Nasal Cannula 4.00 04/18/17 08:00 97.5 96 17 128/86 95 04/18/17 04:15 97.8 89 22 122/71 93 04/18/17 00:10 97.7 110 21 127/75 94 04/17/17 23:59 114 04/17/17 23:45 95 Nasal Cannula 4.00 04/17/17 20:07 97.8 110 21 139/83 93 04/17/17 16:10 93 Nasal Cannula 4.00 04/17/17 16:00 97.2 101 18 133/87 93 04/17/17 12:54 112 97 I/O 04/17/17 04/17/17 04/17/17 04/18/17 04/18/17 04/18/17 06:59 14:59 22:59 06:59 14:59 22:59 Intake Total 700 ml 480 ml 360 ml Balance 700 ml 480 ml 360 ml Intake Oral 700 ml 480 ml 360 ml # Voids 6 2 2 # Bowel Movements 0 1 Result Diagram: 04/18/17 0600 04/18/17 0600 Objective Remarks GENERAL: This is a well-built middle-aged white male who is in pain and seems comfortable HEENT: Head normocephalic. Pupils are reactive and equal. Tongue is moist. Throat is dry. Nasal mucosa is clear. NECK: Supple. No bruits or lymphadenopathy or thyromegaly. CHEST: Distant breath sounds over the left chest with occasional crackles in the left mid chest. There are expiratory wheezes scattered throughout both lung roth. HEART: Heart sounds are regular, S1-S2. No murmur. No S3 gallop. ABDOMEN: The abdomen is soft, protuberant. No masses or organomegaly or tenderness. Bowel sounds are active. EXTREMITIES: No edema. No calf tenderness. Reflexes are 1+ with no gross motor deficits. The patient is alert and oriented. Skin was warm and dry. Assessment and Plan Assessment and Plan IMPRESSION 1. Left basilar pneumonia with left pleural effusion.Poss Empyema 2. Asthmatic bronchitis. 3. Pleuritic chest pain. 4. Hypokalemia. 5. Sepsis. Plan : 1. Continue Cefipime and Zithromax. 2. O2 at 3 L 3. D/C solumedrol 4. Nebs qid , duoneb 5. CBC,BMP, in am 6. PFT when stable. 7. Consult thoracic surgery for decortication 8.IS q3h. Fabricio Lambert MD Apr 18, 2017 12:29
--- NOTE | 2017-04-18 14:26 | HHI.PR ---
Subjective Remarks Patient seen this morning around 10 AM. Reports left-sided pleuritic chest pain improved, able to breathe more comfortably. Denies any nausea or vomiting. Objective Vital Signs Date Time Temp Pulse Resp B/P Pulse Ox O2 Delivery O2 Flow Rate FiO2 04/18/17 12:00 98.7 103 18 142/83 95 04/18/17 08:34 92 Nasal Cannula 4.00 04/18/17 08:00 97.5 96 17 128/86 95 04/18/17 04:15 97.8 89 22 122/71 93 04/18/17 00:10 97.7 110 21 127/75 94 04/17/17 23:59 114 04/17/17 23:45 95 Nasal Cannula 4.00 04/17/17 20:07 97.8 110 21 139/83 93 04/17/17 16:10 93 Nasal Cannula 4.00 04/17/17 16:00 97.2 101 18 133/87 93 I/O 04/17/17 04/17/17 04/17/17 04/18/17 04/18/17 04/18/17 06:59 14:59 22:59 06:59 14:59 22:59 Intake Total 700 ml 480 ml 360 ml 893 ml Balance 700 ml 480 ml 360 ml 893 ml Intake Oral 700 ml 480 ml 360 ml IV Total 893 ml # Voids 6 2 2 # Bowel Movements 0 1 Result Diagram: 04/18/17 0600 04/18/17 0600 Objective Remarks GENERAL: patient sitting up in chair, walking around room. Appears comfortable. SKIN: Warm and dry. HEAD: Normocephalic. EYES: No scleral icterus. No injection or drainage. NECK: Supple, trachea midline. No JVD. CARDIOVASCULAR: Regular rate and rhythm without murmurs, gallops, or rubs. RESPIRATORY: Breath sounds equal bilaterally. No accessory muscle use.thoracentesis site without surrounding erythema. GASTROINTESTINAL: Abdomen soft, non-tender, nondistended. MUSCULOSKELETAL: No cyanosis, or edema. BACK: Nontender without obvious deformity. No CVA tenderness. A/P Assessment and Plan 04/18/17 //Sepsis. //Empyema. Continues. Leukocytosis 22. Improving. Continue on broad- spectrum antibiotics. Pulmonology following. Follow-up cardiothoracic recommendations. Ulcers reviewed. Continue negative. Likely for decortication today or tomorrow.. //Hypokalemia. Potassium 4.4. Resolved. //Hypophosphatemia. 3.3 resolved after replacement. //Sepsis: HR 120's, RR 24, WBC 15, Source-presumed PNA. Blood Culture neg x 1 day, pleural fluid cx pending. s/p CT guided thoracentesis (u/s guided was unsuccessful). Per pt 400cc were removed however report not yet available. -Follow cultures. Continue antibiotics. -cardiothoracic and pulmonary following. // PNA: CXR w/ basilar atelectasis possibly PNA, CTA negative for PE, moderate pleural effusion. continue w/ IV Abx. DuoNeb prn. //Empyema: -Moderate left-sided pleural effusion on CTA. -s/p thoracentesis. White blood cells 79284, RBCs 4000. Pleural LDH 824 -Continue antibiotics. -Azithromycin, cefepime, clindamycin -Follow up fluid cultures, continue negative to date - Thoracic surgery consult by pulmonology. Appreciate assistance. // Hypokalemia: Currently resolved after replacement. -Continue to monitor and replace as necessary. // Hypocalcemia: Ca 5.9, corrected 6.7. Asymptomatic. S/p replacement, resolved. // DVT Prophylaxis: SCD/Teds.start heparin SQ. encourage ambulation Discharge Planning when cleared by pulmonology. Amos Gutierres MD Apr 18, 2017 14:26
[2017-04-19] VITALS (9 sets, daily range): BP systolic 110–141; BP diastolic 74–88; PULSE 91–99; RESP 17–22; TEMP 97.7–99.1; O2SAT 92–96
[2017-04-19] MEDS: RESP: ALBUTEROL 2.5 MG/IPRATROPIUM 0.5 MG NEB (SCH) NEB ×5 (00:25→16:22)
[2017-04-19] MEDS: AZITHROMYCIN INJ 500 MG in SODIUM CHLOR 0.9% 250 ML INJ 250 ML IV SCH ×2 (00:43→21:00)
[2017-04-19] MEDS: ACETAMINOPHEN/HYDROcodone 325 MG/10 MG TAB PO PRN ×3 (00:50→20:36)
[2017-04-19] MEDS: HEPARIN SODIUM - SQ 10,000 UNITS/ML VIAL SQ SCH ×3 (01:11→20:31)
[2017-04-19] MEDS: CLINDAMYCIN INJ 900 MG in SODIUM CHLORIDE 0.9% INJ 100 ML IV SCH ×5 (03:44→22:00)
[2017-04-19] MEDS: CEFEPIME INJ 2,000 MG in SODIUM CHLORIDE 0.9% INJ 100 ML IV SCH ×3 (05:58→22:09)
[2017-04-19 07:30] LABS: AUTOMATED NEUTROPHIL # 13.7 TH/MM3 (1.8-7.7); EOSINOPHIL # 0.1 TH/MM3 (0-0.4); EOSINOPHIL % 0.8 % (0.0-4.0); HEMATOCRIT 35.9 % (39.0-51.0); LYMPH % 19.7 % (9.0-44.0); LYMPHOCYTE # 3.7 TH/MM3 (1.0-4.8); MEAN CELL VOLUME 85.6 FL (80.0-100.0); MEAN CORPUSCULAR HEMOGLOBIN 28.8 PG (27.0-34.0); MEAN CORPUSCULAR HGB CONC 33.6 % (32.0-36.0); MONO % 7.6 % (0.0-8.0); NEUT % 71.9 % (16.0-70.0); PLATELET COUNT 460 TH/MM3 (150-450); RED CELL DISTRIBUTION WIDTH 14.9 % (11.6-17.2)
--- NOTE | 2017-04-19 07:32 | MB ---
cc: NURIA EVANS MD DATE OF CONSULTATION: 04/18/2017. REASON FOR CONSULTATION: We were consulted to evaluate for thoracotomy versus video-assisted thoracoscopy and decortication. PRIMARY CARE PHYSICIAN: In [place]. HISTORY OF PRESENT ILLNESS: 47-year-old male. 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 He was treated with some steroids for the rash and apparently saw a billet checker. He went to the [place] in March, the and for a week and developed some cough, fevers, chills and also some yellowish-felix sputum production. CT was done in the emergency department which showed a moderate sized effusion. He underwent a thoracentesis which removed about 300 cc of dark fluid. Pleural fluid was exudative with 16,000 WBCs. Glucose was 38 from the pleural fluid. Micro pleural fluid has no growth to date. Cath did show some neutrophils, a few reactive mesothelial cells consistent with empyema. No malignancy. The patient also stated when he was in [place] two years ago he lived in a house that had significant mold. he was in [place] 2 years ago he was analysis had significant mold we were consulted to evaluate for thoracotomy versus video-assisted thoracoscopy and decortication. The patient is currently on antibiotic therapy to include clindamycin and Zithromax and Cefepime. PAST MEDICAL HISTORY: 1. Asthma as a child. 2. No prior history of pneumonia. 3. He had a right rotator cuff surgery. ALLERGIES: NO KNOWN ALLERGIES. HOME MEDICATIONS: No home medications. FAMILY HISTORY: Mother . Father had a history of coronary disease. SOCIAL HISTORY: Patient . Two children. 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 No exposure to noxious chemicals. Travel above as in the history of present illness. No tobacco. Occasional alcohol. REVIEW OF SYSTEMS: GENERAL: Positive for recent chills, fever. HEAD, EYES, EARS, NOSE, THROAT: No blurred vision, hearing loss. RESPIRATORY: Positive for cough and shortness of breath. CARDIOVASCULAR: Some pleuritic chest discomfort when coughing. GASTROINTESTINAL: No diarrhea, vomiting. GENITOURINARY: No burning, frequency, urgency. MUSCULOSKELETAL: No joint pain, stiffness. NEUROLOGIC: No history of TIA. ENDOCRINE: Negative for diabetes and hypothyroidism. PHYSICAL EXAMINATION: VITAL SIGNS: On exam, blood pressure 140/80, heart rate of 11, temperature max 98.2, 02 saturation 95% on nasal cannula four liters. GENERAL: Patient is awake, alert and in no acute distress. HEAD, EYES, EARS, NOSE, THROAT: Head is normocephalic, atraumatic. Pupils are equal and reactive. Oral mucosa pink, moist. NECK: The neck is supple. No JVD. HEART: Heart sounds S1, S2, regular rate and rhythm. No rubs, murmurs, gallops. LUNGS: Diminished in the left lower lobe. He has a faint expiratory wheeze. A few basilar left crackles. ABDOMEN: Abdomen is soft and nontender. No masses or organomegaly. EXTREMITIES: No cyanosis, clubbing or edema. LABORATORY DATA: Admission white blood cell count of 15,000 and went up to 30,000 and then to 22,000. Hemoglobin 10. Hematocrit of 33. Platelet count of 439,000. Sodium 134, potassium 4.4, BUN of 21, creatinine 0.66. INR 1.0. Pleural fluid as above. Microbiology as above. RADIOLOGICAL EXAMS: As above. IMPRESSION: This is a 47-year-old male with recent travel to the [facility], also recent exposure to poison ramesy with significant body rash which has improved and the development of a left basilar pneumonia with an empyema. RECOMMENDATIONS: 1. The patient to continue IV antibiotics. 2. Films will be evaluated by Dr. Adams, who will be covering for Dr. Evans to evaluate timing for thoracotomy and decortication. Dictated by QUOC Red. Nuria GASTELUM/GUNNAR /4:29 PM /7:28 AM
[2017-04-19 07:42] LABS: HEMO FLAGS AUTO DIFF
[2017-04-19 08:15] LABS: BANDS 7 % (0-6); EOSINOPHILS 1 % (0-4); METAMYELOCYTES 1 % (0-1); MYELOCYTES 4 % (0-0); NEUTROPHIL # MANUAL DIFF 14.4 TH/MM3 (1.8-7.7); POLYS (SEG NEUTROPHILS) 64 % (16-70); SCAN/DIFF FINAL DIFF MANUAL; WBC DIFF SAMPLE 100
[2017-04-19 08:16] LABS: PLATELET ESTIMATE SMEAR HIGH (NORMAL); PLATELET MORPHOLOGY NORMAL (NORMAL)
[2017-04-19] MEDS ORDERED: predniSONE 10 MG TAB PO SCH (09:00)
[2017-04-19] MEDS: SODIUM CHLORIDE 0.9% FLUSH 10 ML FLUSH IV FLUSH SCH ×2 (09:00→20:32)
[2017-04-19] MEDS: BUDESONIDE-FORMOTEROL 160/4.5 MCG INHALER INH SCH ×2 (09:35→20:33)
[2017-04-19] MEDS: D5-1/2 NS + KCL 20 MEQ INJ 1,000 ML IV SCH ×2 (09:35→19:20)
[2017-04-19] MEDS: guaiFENesin E.R. 600 MG TAB PO SCH ×2 (09:36→20:25)
[2017-04-19] MEDS: DOCUSATE SODIUM 50 MG/SENNA 8.6 MG TAB PO SCH ×2 (09:36→20:26)
--- NOTE | 2017-04-19 15:47 | PD.CAR.PN ---
CVT Progress Note Subjective/Hospital Course: CXR and chest ct evaluated by Dr Adams CXR improved after thoracentesis , plan is to re-eval with new CT chest today Objective: GENERAL: SKIN: Warm and dry. HEAD: Normocephalic. EYES: No scleral icterus. No injection or drainage. NECK: Supple, trachea midline. No JVD or lymphadenopathy. CARDIOVASCULAR: Regular rate and rhythm without murmurs, gallops, or rubs. RESPIRATORY: diminished left lower lobe , few crackles on nasal cannula . No accessory muscle use. GASTROINTESTINAL: Abdomen soft, non-tender, nondistended. MUSCULOSKELETAL: No cyanosis, or edema. BACK: Nontender without obvious deformity. No CVA tenderness. Vital Signs Date Time Temp Pulse Resp B/P Pulse Ox O2 Delivery O2 Flow Rate FiO2 04/19/17 12:00 98.3 92 18 133/88 94 04/19/17 08:49 95 Nasal Cannula 3.00 04/19/17 08:00 97.9 96 17 134/86 96 04/19/17 04:00 97.7 91 20 123/74 94 04/19/17 00:26 93 Nasal Cannula 3.00 04/19/17 00:00 98.7 95 22 141/85 93 04/18/17 20:00 96.4 89 18 146/89 95 04/18/17 16:00 98.2 100 19 142/82 95 Labs: Laboratory Tests Test 04/19/17 05:30 White Blood Count 19.0 TH/MM3 (4.0-11.0) Red Blood Count 4.20 MIL/MM3 (4.50-5.90) Hemoglobin 12.1 GM/DL (13.0-17.0) Hematocrit 35.9 % (39.0-51.0) Mean Corpuscular Volume 85.6 FL (80.0-100.0) Mean Corpuscular Hemoglobin 28.8 PG (27.0-34.0) Mean Corpuscular Hemoglobin 33.6 % Concent (32.0-36.0) Red Cell Distribution Width 14.9 % (11.6-17.2) Platelet Count 460 TH/MM3 (150-450) Mean Platelet Volume 8.3 FL (7.0-11.0) Neutrophils (%) (Auto) 71.9 % (16.0-70.0) Lymphocytes (%) (Auto) 19.7 % (9.0-44.0) Monocytes (%) (Auto) 7.6 % (0.0-8.0) Eosinophils (%) (Auto) 0.8 % (0.0-4.0) Basophils (%) (Auto) 0.0 % (0.0-2.0) Neutrophils # (Auto) 13.7 TH/MM3 (1.8-7.7) Lymphocytes # (Auto) 3.7 TH/MM3 (1.0-4.8) Monocytes # (Auto) 1.5 TH/MM3 (0-0.9) Eosinophils # (Auto) 0.1 TH/MM3 (0-0.4) Basophils # (Auto) 0.0 TH/MM3 (0-0.2) CBC Comment AUTO DIFF Differential Total Cells 100 Counted Neutrophils % (Manual) 64 % (16-70) Band Neutrophils % 7 % (0-6) Lymphocytes % 19 % (9-44) Monocytes % 4 % (0-8) Eosinophils % 1 % (0-4) Neutrophils # (Manual) 14.4 TH/MM3 (1.8-7.7) Metamyelocytes 1 % (0-1) Myelocytes 4 % (0-0) Differential Comment FINAL DIFF MANUAL Atypical Lymphocytes % (0-0) Platelet Estimate HIGH (NORMAL) Platelet Morphology Comment NORMAL (NORMAL) Red Cell Morphology Comment NORMAL (NORMAL) Result Diagram: 04/19/17 0530 04/18/17 0600 (1) PNA (pneumonia) (2) Pleural effusion Plan: s/p thoracentesis / exudative by light's criteria no growth in pleural fluid or blood cultures continue IV antibiotics/ re-eval for CT chest , if no improvement then consider further need for left VATS decortication Mely Alejo Apr 19, 2017 15:46
--- NOTE | 2017-04-19 16:33 | RADRPT ---
EXAM DATE/TIME: 04/19/2017 15:41 [facility] COMPARISON: CT PULMONARY ANGIOGRAM, April 14, 2017, 21:22. INDICATIONS : Post thoracentesis, re-eval effusion. RADIATION DOSE: 6.08 CTDIvol (mGy) MEDICAL HISTORY : Hypertension. SURGICAL HISTORY : None. ENCOUNTER: Initial ACUITY: 1 day PAIN SCALE: 0/10 LOCATION: chest TECHNIQUE: Volumetric scanning of the chest was performed. Using automated exposure control and adjustment of t he mA and/or kV according to patient size, radiation dose was kept as low as reasonably achievable to obtain optimal diagnostic quality images. DICOM format image data is available electronically for r eview and comparison. Follow-up recommendations for detected pulmonary nodules are based at a minimum on nodule size and pa tient risk factors according to Fleischner Society Guidelines. FINDINGS: LUNGS: Airspace disease is identified in the right upper lobe and right lower lobe. There is persistent dens e consolidation left lower lobe. PLEURAE: Small to moderate sized left pleural effusion has reaccumulated. There is no significant right pleura l effusion. MEDIASTINUM: The heart and great vessels demonstrate no acute abnormality. There is no mediastinal or hilar lymph adenopathy. AXILLAE: Within normal limits. No lymphadenopathy. MUSCULOSKELETAL: Within normal limits for patient age. MISCELLANEOUS: The visualized upper abdominal organs demonstrate no acute abnormality. CONCLUSION: 1. Reaccumulation of a small to moderate-sized left pleural effusion. 2. Persistent dense consolidation of the left lower lobe. 3. New patchy air space disease in the right apex and right lower lobe. Paul Spence MD on April 19, 2017 at 16:28 Board Certified Radiologist. This report was verified electronically.
--- NOTE | 2017-04-19 18:20 | HHI.PR ---
Subjective Remarks 47 YOWM with Pneumonia, Pl effusion likly empyema had TC CT chest has reaccamulation of pl fluid, dense LLL infilt, new RUL infilt Pt up in chair , family at [facility] CP No Fever Looks and feels comfortable. Objective Vital Signs Vital Signs Date Time Temp Pulse Resp B/P Pulse Ox O2 Delivery O2 Flow Rate FiO2 04/19/17 16:22 92 21 04/19/17 16:00 98.0 99 19 110/77 93 04/19/17 12:00 98.3 92 18 133/88 94 04/19/17 08:49 95 Nasal Cannula 3.00 04/19/17 08:00 97.9 96 17 134/86 96 04/19/17 04:00 97.7 91 20 123/74 94 04/19/17 00:26 93 Nasal Cannula 3.00 04/19/17 00:00 98.7 95 22 141/85 93 04/18/17 20:00 96.4 89 18 146/89 95 I/O 04/18/17 04/18/17 04/18/17 04/19/17 04/19/17 04/19/17 06:59 14:59 22:59 06:59 14:59 22:59 Intake Total 360 ml 1373 ml 480 ml 945 ml 240 ml Output Total 650 ml Balance 360 ml 723 ml 480 ml 945 ml 240 ml Intake Oral 360 ml 480 ml 480 ml 0 ml 240 ml IV Total 893 ml 945 ml Output Urine Total 650 ml # Voids 2 2 2 5 # Bowel Movements 1 0 0 1 0 Result Diagram: 04/19/17 0530 04/18/17 0600 Objective Remarks GENERAL: WBWN WM, non toxic, comfortable SKIN: Warm and dry. HEAD: Normocephalic. EYES: No scleral icterus. No injection or drainage. NECK: Supple, trachea midline. No JVD or lymphadenopathy. CARDIOVASCULAR: Regular rate and rhythm without murmurs, gallops, or rubs. RESPIRATORY: Breath sounds equal bilaterally. No accessory muscle use. Decreased BS left GASTROINTESTINAL: Abdomen soft, non-tender, nondistended. MUSCULOSKELETAL: No cyanosis, or edema. BACK: Nontender without obvious deformity. No CVA tenderness. A/P Assessment and Plan Dense Pneumonia Pleural effustion, reaccamulation Leucocytosis improving Asthmatic bronchitis PLAN: Cont Abx Zithro and Clindamycin Add Vanco Stable on RA DW Dr. Mendes, he will check CT chest and decide for decotication Lauri Patel MD Apr 19, 2017 18:20
[2017-04-19] MEDS: VANCOMYCIN INJ 1,000 MG in SODIUM CHLOR 0.9% 250 ML INJ 250 ML IV SCH (20:27)
--- NOTE | 2017-04-19 23:58 | HHI.PR ---
Subjective Remarks Patient seen this morning around 11 AM. Says his breathing is all right. Reports chest pain improving. Objective Vital Signs Date Time Temp Pulse Resp B/P Pulse Ox O2 Delivery O2 Flow Rate FiO2 04/19/17 20:00 99.1 95 22 130/80 95 04/19/17 16:22 92 21 04/19/17 16:00 98.0 99 19 110/77 93 04/19/17 12:00 98.3 92 18 133/88 94 04/19/17 08:49 95 Nasal Cannula 3.00 04/19/17 08:00 97.9 96 17 134/86 96 04/19/17 04:00 97.7 91 20 123/74 94 04/19/17 00:26 93 Nasal Cannula 3.00 04/19/17 00:00 98.7 95 22 141/85 93 I/O 04/18/17 04/18/17 04/18/17 04/19/17 04/19/17 04/19/17 07:00 15:00 23:00 07:00 15:00 23:00 Intake Total 360 ml 1373 ml 480 ml 945 ml 240 ml 514 ml Output Total 650 ml Balance 360 ml 723 ml 480 ml 945 ml 240 ml 514 ml Intake Oral 360 ml 480 ml 480 ml 0 ml 240 ml 480 ml IV Total 893 ml 945 ml 34 ml Output Urine Total 650 ml # Voids 2 2 2 5 2 # Bowel Movements 1 0 0 1 0 0 Result Diagram: 04/19/17 0530 04/18/17 0600 Objective Remarks GENERAL: patient sitting up in chair, walking around room. Appears comfortable.exam is overall unchanged. SKIN: Warm and dry. HEAD: Normocephalic. EYES: No scleral icterus. No injection or drainage. NECK: Supple, trachea midline. No JVD. CARDIOVASCULAR: Regular rate and rhythm without murmurs, gallops, or rubs. RESPIRATORY: Breath sounds equal bilaterally. No accessory muscle use.thoracentesis site without surrounding erythema. GASTROINTESTINAL: Abdomen soft, non-tender, nondistended. MUSCULOSKELETAL: No cyanosis, or edema. BACK: Nontender without obvious deformity. No CVA tenderness. A/P Assessment and Plan 04/19/17 //Sepsis. //Empyema. Continues. Leukocytosis 19. Discussed with cardiothoracic surgery. Repeat CT shows recurrence of pleural effusion. Vancomycin added by pulmonology. Continue antibiotics. Plan per cardiothoracic surgery.. Possibly for decortication. //Sepsis: HR 120's, RR 24, WBC 15, Source-presumed PNA. Blood Culture neg x 1 day, pleural fluid cx pending. s/p CT guided thoracentesis (u/s guided was unsuccessful). Per pt 400cc were removed however report not yet available. -Follow cultures. Continue antibiotics. -cardiothoracic and pulmonary following. // PNA: CXR w/ basilar atelectasis possibly PNA, CTA negative for PE, moderate pleural effusion. continue w/ IV Abx. DuoNeb prn. //Empyema: -Moderate left-sided pleural effusion on CTA. -s/p thoracentesis. White blood cells 70921, RBCs 4000. Pleural LDH 824 -Continue antibiotics. -Azithromycin, cefepime, clindamycin -Follow up fluid cultures, continue negative to date - Thoracic surgery consult by pulmonology. Appreciate assistance. // Hypokalemia: Currently resolved after replacement. -Continue to monitor and replace as necessary. // Hypocalcemia: Ca 5.9, corrected 6.7. Asymptomatic. S/p replacement, resolved. // DVT Prophylaxis: SCD/Teds.start heparin SQ. encourage ambulation Discharge Planning when cleared by pulmonology. Amos Gutierres MD Apr 19, 2017 23:58 Amos Gutierres MD Apr 19, 2017 23:58
[2017-04-20] VITALS (9 sets, daily range): BP systolic 116–128; BP diastolic 60–80; PULSE 92–116; RESP 19–22; TEMP 96.9–99.8; O2SAT 92–96
[2017-04-20] MEDS: CLINDAMYCIN INJ 900 MG in SODIUM CHLORIDE 0.9% INJ 100 ML IV SCH ×5 (01:47→20:42)
[2017-04-20] MEDS: AZITHROMYCIN INJ 500 MG in SODIUM CHLOR 0.9% 250 ML INJ 250 ML IV SCH ×2 (01:48→20:43)
[2017-04-20] MEDS: ACETAMINOPHEN/HYDROcodone 325 MG/10 MG TAB PO PRN ×2 (04:13→20:39)
[2017-04-20] MEDS: CEFEPIME INJ 2,000 MG in SODIUM CHLORIDE 0.9% INJ 100 ML IV SCH ×3 (04:48→20:38)
[2017-04-20] MEDS: HEPARIN SODIUM - SQ 10,000 UNITS/ML VIAL SQ SCH ×3 (04:49→21:00)
[2017-04-20] MEDS: D5-1/2 NS + KCL 20 MEQ INJ 1,000 ML IV SCH ×2 (04:55→20:41)
[2017-04-20 07:39] LABS: AUTOMATED NEUTROPHIL # 14.1 TH/MM3 (1.8-7.7); BASOPHIL % 0.2 % (0.0-2.0); EOSINOPHIL # 0.5 TH/MM3 (0-0.4); EOSINOPHIL % 2.7 % (0.0-4.0); HEMATOCRIT 36.7 % (39.0-51.0); LYMPH % 16.1 % (9.0-44.0); LYMPHOCYTE # 3.1 TH/MM3 (1.0-4.8); MEAN CELL VOLUME 83.4 FL (80.0-100.0); MEAN CORPUSCULAR HEMOGLOBIN 28.7 PG (27.0-34.0); MEAN CORPUSCULAR HGB CONC 34.4 % (32.0-36.0); MONO % 8.3 % (0.0-8.0); NEUT % 72.7 % (16.0-70.0); PLATELET COUNT 480 TH/MM3 (150-450); RED CELL DISTRIBUTION WIDTH 14.7 % (11.6-17.2); WHITE BLOOD COUNT 19.5 TH/MM3 (4.0-11.0)
[2017-04-20 07:43] LABS: HEMO FLAGS AUTO DIFF
[2017-04-20 07:50] LABS: BICARBONATE 29.4 MEQ/L (21.0-32.0)
[2017-04-20] MEDS: guaiFENesin E.R. 600 MG TAB PO SCH ×2 (08:07→20:39)
[2017-04-20] MEDS: VANCOMYCIN INJ 1,000 MG in SODIUM CHLOR 0.9% 250 ML INJ 250 ML IV SCH ×2 (08:07→20:42)
[2017-04-20] MEDS: SODIUM CHLORIDE 0.9% FLUSH 10 ML FLUSH IV FLUSH SCH ×2 (08:07→20:44)
[2017-04-20] MEDS: BUDESONIDE-FORMOTEROL 160/4.5 MCG INHALER INH SCH ×2 (08:07→20:43)
[2017-04-20] MEDS: DOCUSATE SODIUM 50 MG/SENNA 8.6 MG TAB PO SCH ×2 (08:07→20:44)
[2017-04-20 10:21] LABS: BANDS 9 % (0-6); CORRECTED NUCLEATED RBC 1 /100 WBC (0-0); EOSINOPHILS 6 % (0-4); METAMYELOCYTES 9 % (0-1); MYELOCYTES 2 % (0-0); NEUTROPHIL # MANUAL DIFF 15.4 TH/MM3 (1.8-7.7); POLYS (SEG NEUTROPHILS) 59 % (16-70); WBC DIFF SAMPLE 100
[2017-04-20 10:22] LABS: PLATELET ESTIMATE SMEAR HIGH (NORMAL); PLATELET MORPHOLOGY NORMAL (NORMAL); SCAN/DIFF FINAL DIFF MANUAL
--- NOTE | 2017-04-20 11:39 | PD.CAR.PN ---
CVT Progress Note Subjective/Hospital Course: CXR and chest ct evaluated by Dr Adams CXR improved after thoracentesis , plan is to re-eval with new CT chest today 04/20/17 Patient underwent repeat chest CT which shows reaccumulation of small to moderate left pleural effusion with adjacent atelectasis as well as bilateral infiltrates. c/o productive cough and feels more short of breath. Objective: Vital Signs Date Time Temp Pulse Resp B/P Pulse Ox O2 Delivery O2 Flow Rate FiO2 04/20/17 10:15 94 Nasal Cannula 3.00 04/20/17 08:00 96.9 92 21 116/80 95 04/20/17 04:00 98.6 95 20 125/71 94 04/20/17 00:00 98.1 92 22 119/75 95 04/19/17 20:00 99.1 95 22 130/80 95 04/19/17 16:22 92 21 04/19/17 16:00 98.0 99 19 110/77 93 04/19/17 12:00 98.3 92 18 133/88 94 Labs: Laboratory Tests Test 04/20/17 06:29 White Blood Count 19.5 TH/MM3 (4.0-11.0) Red Blood Count 4.40 MIL/MM3 (4.50-5.90) Hemoglobin 12.6 GM/DL (13.0-17.0) Hematocrit 36.7 % (39.0-51.0) Mean Corpuscular Volume 83.4 FL (80.0-100.0) Mean Corpuscular Hemoglobin 28.7 PG (27.0-34.0) Mean Corpuscular Hemoglobin 34.4 % Concent (32.0-36.0) Red Cell Distribution Width 14.7 % (11.6-17.2) Platelet Count 480 TH/MM3 (150-450) Mean Platelet Volume 8.4 FL (7.0-11.0) Neutrophils (%) (Auto) 72.7 % (16.0-70.0) Lymphocytes (%) (Auto) 16.1 % (9.0-44.0) Monocytes (%) (Auto) 8.3 % (0.0-8.0) Eosinophils (%) (Auto) 2.7 % (0.0-4.0) Basophils (%) (Auto) 0.2 % (0.0-2.0) Neutrophils # (Auto) 14.1 TH/MM3 (1.8-7.7) Lymphocytes # (Auto) 3.1 TH/MM3 (1.0-4.8) Monocytes # (Auto) 1.6 TH/MM3 (0-0.9) Eosinophils # (Auto) 0.5 TH/MM3 (0-0.4) Basophils # (Auto) 0.0 TH/MM3 (0-0.2) CBC Comment AUTO DIFF Differential Total Cells 100 Counted Neutrophils % (Manual) 59 % (16-70) Band Neutrophils % 9 % (0-6) Lymphocytes % 9 % (9-44) Monocytes % 6 % (0-8) Eosinophils % 6 % (0-4) Neutrophils # (Manual) 15.4 TH/MM3 (1.8-7.7) Metamyelocytes 9 % (0-1) Myelocytes 2 % (0-0) Nucleated Red Blood Cells 1 /100 WBC (0-0) Differential Comment FINAL DIFF MANUAL Platelet Estimate HIGH (NORMAL) Platelet Morphology Comment NORMAL (NORMAL) Red Cell Morphology Comment NORMAL (NORMAL) Sodium Level 135 MEQ/L (136-145) Potassium Level 4.0 MEQ/L (3.5-5.1) Chloride Level 96 MEQ/L (98-107) Carbon Dioxide Level 29.4 MEQ/L (21.0-32.0) Anion Gap 10 MEQ/L (5-15) Blood Urea Nitrogen 17 MG/DL (7-18) Creatinine 0.70 MG/DL (0.60-1.30) Estimat Glomerular Filtration 120 ML/MIN Rate (>89) Random Glucose 82 MG/DL (74-106) Calcium Level 8.7 MG/DL (8.5-10.1) Result Diagram: 04/20/1762804/20/17628 Imaging: Last Impressions Chest CT 04/19/17 0000 Signed Impressions: Service Date/Time: Wednesday, April 19, 2017 15:41 - CONCLUSION: 1. Reaccumulation of a small to moderate-sized left pleural effusion. 2. Persistent dense consolidation of the left lower lobe. 3. New patchy air space disease in the right apex and right lower lobe. Paul Spence MD Chest X-Ray 04/17/17 0600 Signed Impressions: Service Date/Time: Monday, April 17, 2017 06:04 - CONCLUSION: Slight improved aeration left lung. Christ Baez MD Thoracentesis Ultrasound 04/15/17 0000 Signed Impressions: Service Date/Time: Saturday, April 15, 2017 09:17 - CONCLUSION: Unsuccessful ultrasound guided thoracentesis. Lobo Dominguez MD FACR Thoracentesis 04/15/17 0000 Signed Impressions: Service Date/Time: Saturday, April 15, 2017 09:57 - CONCLUSION: Uncomplicated CT-guided left thoracentesis. Lobo Dominguez MD FACR CT Angiography 04/14/17 1918 Signed Impressions: Service Date/Time: Friday, April 14, 2017 21:22 - CONCLUSION: 1. Study limited by motion artifact and contrast bolus but no large central emboli are identified. 2. Moderate left effusion and compressive atelectasis posteriorly in the left lung. Moderate coronary calcifications. Rowdy Mckinley MD Cardiovascular: RRR Pulmonary: Decreased BS on left GI/: NABS Plan: Recommend left thoracoscopic exploration to drain loculated pleural effusion with possible decortication. Will also plan for bronchoscopy. Risks and benefits discussed with the patient and he agrees to proceed. (1) PNA (pneumonia) (2) Pleural effusion Plan: s/p thoracentesis / exudative by light's criteria no growth in pleural fluid or blood cultures continue IV antibiotics/ re-eval for CT chest , if no improvement then consider further need for left VATS decortication Ninoska Adams MD Apr 20, 2017 11:39
[2017-04-20] MEDS ORDERED: INSULIN REGULAR (IV INFUSION) 100 UNITS in SODIUM CHLORIDE 0.9% INJ 100 ML IV SCH (11:45)
[2017-04-20] MEDS ORDERED: METOPROLOL TARTRATE 25 MG TAB PO SCH (11:45)
[2017-04-20] MEDS ORDERED: CHLORHEXIDINE GLUCONATE 4% SOLN 120 ML BTL TOPICAL SCH (11:45)
[2017-04-20] MEDS ORDERED: ceFAZolin 2 GM PREMIX 50 ML IV SCH (11:45)
--- NOTE | 2017-04-20 11:52 | HHI.PR ---
Subjective Remarks 47 YOWM with Pneumonia, Pl effusion likly empyema had TC CT chest has reaccamulation of pl fluid, dense LLL infilt, new RUL infilt Pt up in chair , family at BS Denies CP No Fever Looks and feels comfortable. Seen by Objective Vital Signs Vital Signs Date Time Temp Pulse Resp B/P Pulse Ox O2 Delivery O2 Flow Rate FiO2 04/20/17 10:15 94 Nasal Cannula 3.00 04/20/17 08:00 96.9 92 21 116/80 95 04/20/17 04:00 98.6 95 20 125/71 94 04/20/17 00:00 98.1 92 22 119/75 95 04/19/17 20:00 99.1 95 22 130/80 95 04/19/17 16:22 92 21 04/19/17 16:00 98.0 99 19 110/77 93 04/19/17 12:00 98.3 92 18 133/88 94 I/O 04/19/17 04/19/17 04/19/17 04/20/17 04/20/17 04/20/17 06:59 14:59 22:59 06:59 14:59 22:59 Intake Total 945 ml 240 ml 514 ml 240 ml 120 ml Balance 945 ml 240 ml 514 ml 240 ml 120 ml Intake Oral 0 ml 240 ml 480 ml 240 ml 120 ml IV Total 945 ml 34 ml # Voids 2 5 2 5 # Bowel Movements 1 0 0 0 Result Diagram: 04/20/1762804/20/17628 Objective Remarks GENERAL: WBWN WM, non toxic, comfortable SKIN: Warm and dry. HEAD: Normocephalic. EYES: No scleral icterus. No injection or drainage. NECK: Supple, trachea midline. No JVD or lymphadenopathy. CARDIOVASCULAR: Regular rate and rhythm without murmurs, gallops, or rubs. RESPIRATORY: Breath sounds equal bilaterally. No accessory muscle use. Decreased BS left GASTROINTESTINAL: Abdomen soft, non-tender, nondistended. MUSCULOSKELETAL: No cyanosis, or edema. BACK: Nontender without obvious deformity. No CVA tenderness. A/P Assessment and Plan Dense Pneumonia Pleural effustion, reaccamulation Leucocytosis improving Asthmatic bronchitis PLAN: Cont Abx Zithro and Clindamycin Add Vanco Stable on Jim evaluating for Decortication. Lauri Patel MD Apr 20, 2017 11:52
[2017-04-20] MEDS: MUPIROCIN 2% OINT 1 APPLIC/GM SYR EACH NARE SCH ×2 (13:38→21:01)
--- NOTE | 2017-04-20 23:57 | HHI.PR ---
Subjective Remarks Patient seen this morning around 11 AM. patient says he is feeling well. Ready for surgery Objective Vital Signs Date Time Temp Pulse Resp B/P Pulse Ox O2 Delivery O2 Flow Rate FiO2 04/20/17 20:49 95 Nasal Cannula 3.00 04/20/17 20:32 92 Nasal Cannula 2.00 04/20/17 20:00 99.8 109 20 125/78 92 04/20/17 16:00 99.1 102 19 128/77 96 04/20/17 12:00 96.9 98 19 128/60 95 04/20/17 10:15 94 Nasal Cannula 3.00 04/20/17 08:00 96.9 92 21 116/80 95 04/20/17 04:00 98.6 95 20 125/71 94 04/20/17 00:00 98.1 92 22 119/75 95 I/O 04/19/17 04/19/17 04/19/17 04/20/17 04/20/17 04/20/17 07:00 15:00 23:00 07:00 15:00 23:00 Intake Total 945 ml 240 ml 514 ml 240 ml 1070 ml Output Total 1000 ml Balance 945 ml 240 ml 514 ml 240 ml 70 ml Intake Oral 0 ml 240 ml 480 ml 240 ml 1070 ml IV Total 945 ml 34 ml Output Urine Total 1000 ml # Voids 2 5 2 5 # Bowel Movements 1 0 0 0 0 Result Diagram: 04/20/1762804/20/17628 Objective Remarks GENERAL: patient sitting up in chair, walking around room. no change on exam from yesterday. SKIN: Warm and dry. HEAD: Normocephalic. EYES: No scleral icterus. No injection or drainage. NECK: Supple, trachea midline. No JVD. CARDIOVASCULAR: Regular rate and rhythm without murmurs, gallops, or rubs. RESPIRATORY: Breath sounds equal bilaterally. No accessory muscle use.thoracentesis site without surrounding erythema. GASTROINTESTINAL: Abdomen soft, non-tender, nondistended. MUSCULOSKELETAL: No cyanosis, or edema. BACK: Nontender without obvious deformity. No CVA tenderness. A/P Assessment and Plan 04/20/17 //Sepsis. //Empyema. Continues. Leukocytosis 19.5 tachycardia with heart rate in the 90s to 100s. -Possibly decortication on Saturday. Continue to monitor. Continue antibiotics. //Sepsis: HR 120's, RR 24, WBC 15, Source-presumed PNA. Blood Culture neg x 1 day, pleural fluid cx pending. s/p CT guided thoracentesis (u/s guided was unsuccessful). Per pt 400cc were removed however report not yet available. -Follow cultures. Continue antibiotics. -cardiothoracic and pulmonary following. // PNA: CXR w/ basilar atelectasis possibly PNA, CTA negative for PE, moderate pleural effusion. continue w/ IV Abx. DuoNeb prn. //Empyema: -Moderate left-sided pleural effusion on CTA. -s/p thoracentesis. White blood cells 55586, RBCs 4000. Pleural LDH 824 -Continue antibiotics. -Azithromycin, cefepime, clindamycin -Follow up fluid cultures, continue negative to date - Thoracic surgery consult by pulmonology. Appreciate assistance. // Hypokalemia: Currently resolved after replacement. -Continue to monitor and replace as necessary. // Hypocalcemia: Ca 5.9, corrected 6.7. Asymptomatic. S/p replacement, resolved. // DVT Prophylaxis: SCD/Teds.start heparin SQ. encourage ambulation Discharge Planning when cleared by pulmonology. Amos Gutierres MD Apr 20, 2017 23:57
[2017-04-21] VITALS (7 sets, daily range): BP systolic 102–132; BP diastolic 60–88; PULSE 68–107; RESP 16–20; TEMP 96.9–98.7; O2SAT 92–98
[2017-04-21] MEDS: ACETAMINOPHEN/HYDROcodone 325 MG/10 MG TAB PO PRN ×3 (02:56→22:06)
[2017-04-21] MEDS: CLINDAMYCIN INJ 900 MG in SODIUM CHLORIDE 0.9% INJ 100 ML IV SCH ×4 (06:17→22:01)
[2017-04-21] MEDS: HEPARIN SODIUM - SQ 10,000 UNITS/ML VIAL SQ SCH ×3 (06:17→22:00)
[2017-04-21] MEDS: CEFEPIME INJ 2,000 MG in SODIUM CHLORIDE 0.9% INJ 100 ML IV SCH ×3 (06:17→22:00)
[2017-04-21] MEDS: BUDESONIDE-FORMOTEROL 160/4.5 MCG INHALER INH SCH ×2 (07:43→22:09)
[2017-04-21] MEDS: guaiFENesin E.R. 600 MG TAB PO SCH ×2 (07:43→22:02)
[2017-04-21] MEDS: VANCOMYCIN INJ 1,000 MG in SODIUM CHLOR 0.9% 250 ML INJ 250 ML IV SCH ×2 (07:43→22:11)
[2017-04-21] MEDS: DOCUSATE SODIUM 50 MG/SENNA 8.6 MG TAB PO SCH ×2 (07:43→21:00)
[2017-04-21] MEDS: MUPIROCIN 2% OINT 1 APPLIC/GM SYR EACH NARE SCH ×2 (07:43→22:02)
[2017-04-21] MEDS: SODIUM CHLORIDE 0.9% FLUSH 10 ML FLUSH IV FLUSH SCH ×2 (07:43→22:02)
[2017-04-21] MEDS: D5-1/2 NS + KCL 20 MEQ INJ 1,000 ML IV SCH ×2 (07:44→19:00)
[2017-04-21 10:55] LABS: BLOOD, URINE NEG (NEG); GLUCOSE,URINE NEG (NEG); KETONE, URINE NEG (NEG); NITRITE,URINE NEG (NEG); PH, URINE 6.5 (5.0-8.5); URINE COLOR YELLOW (YELLW/STRAW)
[2017-04-21 10:57] LABS: COMMENT (UR) CULT NOT INDICATED; CULTURE IF INDICATED CULT NOT INDICATED
[2017-04-21 12:27] LABS: AUTOMATED NEUTROPHIL # 16.6 TH/MM3 (1.8-7.7); BASOPHIL % 0.1 % (0.0-2.0); EOSINOPHIL # 0.9 TH/MM3 (0-0.4); EOSINOPHIL % 4.1 % (0.0-4.0); HEMATOCRIT 38.4 % (39.0-51.0); LYMPH % 11.7 % (9.0-44.0); LYMPHOCYTE # 2.6 TH/MM3 (1.0-4.8); MEAN CELL VOLUME 84.2 FL (80.0-100.0); MEAN CORPUSCULAR HEMOGLOBIN 28.5 PG (27.0-34.0); MEAN CORPUSCULAR HGB CONC 33.8 % (32.0-36.0); MONO % 8.7 % (0.0-8.0); NEUT % 75.4 % (16.0-70.0); PLATELET COUNT 497 TH/MM3 (150-450); RED BLOOD COUNT 4.56 MIL/MM3 (4.50-5.90); RED CELL DISTRIBUTION WIDTH 14.4 % (11.6-17.2)
[2017-04-21 12:32] LABS: HEMO FLAGS AUTO DIFF
[2017-04-21 13:02] LABS: METAMYELOCYTES 5 % (0-1)
[2017-04-21 13:03] LABS: BANDS 6 % (0-6); EOSINOPHILS 4 % (0-4); MYELOCYTES 5 % (0-0); NEUTROPHIL # MANUAL DIFF 16.9 TH/MM3 (1.8-7.7); POLYS (SEG NEUTROPHILS) 61 % (16-70); WBC DIFF SAMPLE 100
[2017-04-21 13:05] LABS: PLATELET ESTIMATE SMEAR HIGH (NORMAL)
[2017-04-21 13:06] LABS: PLATELET MORPHOLOGY NORMAL (NORMAL)
[2017-04-21 13:08] LABS: SCAN/DIFF FINAL DIFF MANUAL
--- NOTE | 2017-04-21 14:02 | HHI.PR ---
Subjective Remarks 47 YOWM with Pneumonia, Pl effusion likly empyema had TC CT chest has reaccamulation of pl fluid, dense LLL infilt, new RUL infilt Pt up in chair , family at BS Denies CP No Fever Looks and feels comfortable. Seen by No new complaint Objective Vital Signs Vital Signs Date Time Temp Pulse Resp B/P Pulse Ox O2 Delivery O2 Flow Rate FiO2 04/21/17 12:00 98.6 68 16 116/60 92 04/21/17 09:10 98 Nasal Cannula 3.00 04/21/17 08:00 98.7 94 20 102/75 95 04/21/17 08:00 98.6 69 16 113/64 95 04/21/17 00:00 98.7 100 20 117/70 94 04/20/17 20:49 95 Nasal Cannula 3.00 04/20/17 20:32 92 Nasal Cannula 2.00 04/20/17 20:00 99.8 109 20 125/78 92 04/20/17 19:22 116 04/20/17 16:00 99.1 102 19 128/77 96 I/O 04/20/17 04/20/17 04/20/17 04/21/17 04/21/17 04/21/17 07:00 15:00 23:00 07:00 15:00 23:00 Intake Total 240 ml 1070 ml 360 ml 1123 ml 120 ml Output Total 1000 ml Balance 240 ml 70 ml 360 ml 1123 ml 120 ml Intake Oral 240 ml 1070 ml 360 ml 240 ml 120 ml IV Total 883 ml Output Urine Total 1000 ml # Voids 5 2 3 # Bowel Movements 0 0 1 Result Diagram: 04/21/17 1145 04/20/17 0629 Objective Remarks GENERAL: WBWN WM, non toxic, comfortable SKIN: Warm and dry. HEAD: Normocephalic. EYES: No scleral icterus. No injection or drainage. NECK: Supple, trachea midline. No JVD or lymphadenopathy. CARDIOVASCULAR: Regular rate and rhythm without murmurs, gallops, or rubs. RESPIRATORY: Breath sounds equal bilaterally. No accessory muscle use. Decreased BS left GASTROINTESTINAL: Abdomen soft, non-tender, nondistended. MUSCULOSKELETAL: No cyanosis, or edema. BACK: Nontender without obvious deformity. No CVA tenderness. A/P Assessment and Plan Dense Pneumonia Pleural effustion, reaccamulation Leucocytosis improving Asthmatic bronchitis PLAN: Cont Abx Zithro and Clindamycin Add Vanco Stable on RA evaluating for Decortication. Dr. Lambret Will FU in AM. Lauri Patel MD Apr 21, 2017 14:02
[2017-04-21] MEDS: AZITHROMYCIN INJ 500 MG in SODIUM CHLOR 0.9% 250 ML INJ 250 ML IV SCH (23:23)
--- NOTE | 2017-04-21 23:53 | HHI.PR ---
Subjective Remarks Patient seen this morning around 10 AM. Sitting up in chair. Appears comfortable. He reports pleuritic left-sided chest pain under control. Reports shortness of breath improving. No fevers. Objective Vital Signs Date Time Temp Pulse Resp B/P Pulse Ox O2 Delivery O2 Flow Rate FiO2 04/21/17 20:21 94 04/21/17 16:00 97.9 71 16 132/68 94 04/21/17 16:00 96.9 98 19 126/81 95 04/21/17 12:00 98.7 107 19 116/88 95 04/21/17 12:00 98.6 68 16 116/60 92 04/21/17 09:10 98 Nasal Cannula 3.00 04/21/17 08:00 98.7 94 20 102/75 95 04/21/17 08:00 98.6 69 16 113/64 95 04/21/17 00:00 98.7 100 20 117/70 94 I/O 04/20/17 04/20/17 04/20/17 04/21/17 04/21/17 04/21/17 07:00 15:00 23:00 07:00 15:00 23:00 Intake Total 240 ml 1070 ml 360 ml 1123 ml 1380 ml Output Total 1000 ml 1600 ml Balance 240 ml 70 ml 360 ml 1123 ml -220 ml Intake Oral 240 ml 1070 ml 360 ml 240 ml 1380 ml IV Total 883 ml Output Urine Total 1000 ml 1600 ml # Voids 5 2 3 # Bowel Movements 0 0 1 0 Result Diagram: 04/21/17 1145 04/20/17 0629 Objective Remarks GENERAL: patient sitting up in chair. appears comfortable. Alert and oriented 3. SKIN: Warm and dry. HEAD: Normocephalic. EYES: No scleral icterus. No injection or drainage. NECK: Supple, trachea midline. No JVD. CARDIOVASCULAR: Regular rate and rhythm without murmurs, gallops, or rubs. RESPIRATORY: Breath sounds equal bilaterally. No accessory muscle use.thoracentesis site without surrounding erythema. GASTROINTESTINAL: Abdomen soft, non-tender, nondistended. MUSCULOSKELETAL: No cyanosis, or edema. BACK: Nontender without obvious deformity. No CVA tenderness. A/P Assessment and Plan 04/21/17 //Sepsis. //Empyema. Continues. Leukocytosis worsened 22.tachycardia with heart rate in the 90s to 100s stable. -Possibly decortication on Saturday. Continue to monitor. Continue antibiotics. //Sepsis: HR 120's, RR 24, WBC 15, Source-presumed PNA. Blood Culture neg x 1 day, pleural fluid cx pending. s/p CT guided thoracentesis (u/s guided was unsuccessful). Per pt 400cc were removed however report not yet available. -Follow cultures. Continue antibiotics. -cardiothoracic and pulmonary following. // PNA: CXR w/ basilar atelectasis possibly PNA, CTA negative for PE, moderate pleural effusion. continue w/ IV Abx. DuoNeb prn. //Empyema: -Moderate left-sided pleural effusion on CTA. -s/p thoracentesis. White blood cells 16656, RBCs 4000. Pleural LDH 824 -Continue antibiotics. -Azithromycin, cefepime, clindamycin -Follow up fluid cultures, continue negative to date - Thoracic surgery consult by pulmonology. Appreciate assistance. // Hypokalemia: Currently resolved after replacement. -Continue to monitor and replace as necessary. // Hypocalcemia: Ca 5.9, corrected 6.7. Asymptomatic. S/p replacement, resolved. // DVT Prophylaxis: SCD/Teds.holding heparin SQ. encourage ambulation Discharge Planning plan for decortication on Saturday when cleared by pulmonology. Amos Gutierres MD Apr 21, 2017 23:52
[2017-04-22] VITALS (10 sets, daily range): BP systolic 106–116; BP diastolic 62–79; PULSE 92–106; RESP 18–20; TEMP 96.1–98.8; O2SAT 94–100
[2017-04-22] MEDS ORDERED: CHLORHEXIDINE GLUCONATE 2 % 1 PACK (2 CLOTHS) TOPICAL PRN (04:00)
[2017-04-22] MEDS ORDERED: LACTATED RINGER'S 1000 ML IV PRN (04:00)
[2017-04-22] MEDS ORDERED: POVIDONE IODINE 5% (ANTISEPSIS KIT) 4 APPLICATIONS EACH NARE PRN (04:00)
[2017-04-22] MEDS: HEPARIN SODIUM - SQ 10,000 UNITS/ML VIAL SQ SCH ×3 (04:34→22:00)
[2017-04-22] MEDS: CLINDAMYCIN INJ 900 MG in SODIUM CHLORIDE 0.9% INJ 100 ML IV SCH ×5 (04:57→22:17)
[2017-04-22] MEDS: CEFEPIME INJ 2,000 MG in SODIUM CHLORIDE 0.9% INJ 100 ML IV SCH ×3 (04:57→22:18)
[2017-04-22] MEDS: D5-1/2 NS + KCL 20 MEQ INJ 1,000 ML IV SCH ×2 (07:03→18:36)
--- NOTE | 2017-04-22 09:53 | HHI.PR ---
Subjective Remarks Follow up for pneumonia, pleural effusion. Patient is doing well. No acute concerns. Waiting for left thoracoscopy for loculated pleural effusion today by cardiothoracic surgery. Objective Vitals Vital Signs Date Time Temp Pulse Resp B/P Pulse Ox O2 Delivery O2 Flow Rate FiO2 04/22/17 08:41 98.7 106 20 109/79 95 04/22/17 05:21 95 Nasal Cannula 2.00 04/21/17 22:00 97.7 98 20 115/76 96 04/21/17 22:00 95 Nasal Cannula 2.00 04/21/17 20:21 94 04/21/17 16:00 97.9 71 16 132/68 94 04/21/17 16:00 96.9 98 19 126/81 95 04/21/17 12:00 98.7 107 19 116/88 95 04/21/17 12:00 98.6 68 16 116/60 92 I/O 04/21/17 04/21/17 04/21/17 04/22/17 04/22/17 04/22/17 07:00 15:00 23:00 07:00 15:00 23:00 Intake Total 1123 ml 1380 ml 1160 ml 685 ml Output Total 1600 ml Balance 1123 ml -220 ml 1160 ml 685 ml Intake Oral 240 ml 1380 ml 360 ml 0 ml IV Total 883 ml 800 ml 685 ml Output Urine Total 1600 ml # Voids 3 2 2 # Bowel Movements 1 0 Result Diagram: 04/21/17 1145 04/20/17 0629 Imaging Last Impressions Chest X-Ray 04/22/17 0000 Signed Impressions: Service Date/Time: Saturday, April 22, 2017 17:02 - CONCLUSION: 1. 2 large bore chest tubes on the left. There has been reinflation of the left lower lobe. No residual pneumothorax Colten Dominguez MD Chest CT 04/19/17 0000 Signed Impressions: Service Date/Time: Wednesday, April 19, 2017 15:41 - CONCLUSION: 1. Reaccumulation of a small to moderate-sized left pleural effusion. 2. Persistent dense consolidation of the left lower lobe. 3. New patchy air space disease in the right apex and right lower lobe. Paul Spence MD Thoracentesis Ultrasound 04/15/17 0000 Signed Impressions: Service Date/Time: Saturday, April 15, 2017 09:17 - CONCLUSION: Unsuccessful ultrasound guided thoracentesis. Lobo Dominguez MD FACR Thoracentesis 04/15/17 0000 Signed Impressions: Service Date/Time: Saturday, April 15, 2017 09:57 - CONCLUSION: Uncomplicated CT-guided left thoracentesis. Lobo Dominguez MD FACR CT Angiography 04/14/17 1918 Signed Impressions: Service Date/Time: Friday, April 14, 2017 21:22 - CONCLUSION: 1. Study limited by motion artifact and contrast bolus but no large central emboli are identified. 2. Moderate left effusion and compressive atelectasis posteriorly in the left lung. Moderate coronary calcifications. Rowdy Mckinley MD Objective Remarks GENERAL: AOx3, NAD. SKIN: Warm and dry. HEAD: Normocephalic. EYES: No scleral icterus. No injection or drainage. NECK: Supple, trachea midline. No JVD or lymphadenopathy. CARDIOVASCULAR: Regular rate and rhythm without murmurs, gallops, or rubs. RESPIRATORY: Breath sounds equal bilaterally. No accessory muscle use. GASTROINTESTINAL: Abdomen soft, non-tender, nondistended. MUSCULOSKELETAL: No cyanosis, or edema. BACK: Nontender without obvious deformity. No CVA tenderness. A/P Problem List: (1) Sepsis ICD Code: A41.9 Status: Acute (2) PNA (pneumonia) ICD Code: J18.9 Status: Acute (3) Pleural effusion ICD Code: J90 Status: Acute (4) Hypocalcemia ICD Code: E83.51 Status: Acute (5) Hypokalemia ICD Code: E87.6 Status: Acute Assessment and Plan This is a 47-year-old male with no significant PMH who was brought to the ER by EMS secondary to complaints of severe SOB and left-sided rib pain while driving on the highway. 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 On arrival, BP 145/96, HR 120, O2 sat 91% on RA, Afebrile. WBC 15.1. K+ 2.9. Ca 5.9. ABG unremarkable. CXR w/ left basal airspace disease, possibly pneumonia. CTA Pulm w/ no evidence of central emboli, moderate large effusion and compressive atelectasis on left w/ moderate coronary calcifications. - Sepsis: HR 120's, RR 24, WBC 15, Source-presumed PNA. Blood Culture neg x 1 day, pleural fluid cx pending. - s/p CT guided thoracentesis (u/s guided was unsuccessful). - Follow cultures. Continue antibiotics. - cardiothoracic and pulmonary following. - Left basilar pneumonia - CXR w/ basilar atelectasis possibly PNA, CTA negative for PE, moderate pleural effusion. DuoNeb prn. - Continue Azithromycin, Cefepime and Clindamycin. - Empyema: - Moderate left-sided pleural effusion on CTA. - s/p thoracentesis. White blood cells 96639, RBCs 4000. Pleural LDH 824 - Continue antibiotics. - Azithromycin, cefepime, clindamycin - Follow up fluid cultures, continue negative to date - Cardiothoracic surgery is planning to perform thoracoscopy today. - Hypokalemia: Currently resolved after replacement. - Continue to monitor and replace as necessary. - Hypocalcemia: Ca 5.9, corrected 6.7. Asymptomatic. S/p replacement, resolved. Full code. Heparin SQ. Problem Qualifiers (1) Sepsis: Qualified Code: A41.9 - Sepsis, due to unspecified organism Rosibel Strickland DO Apr 22, 2017 09:53
[2017-04-22] MEDS: MUPIROCIN 2% OINT 1 APPLIC/GM SYR EACH NARE SCH ×2 (09:54→21:00)
[2017-04-22] MEDS: guaiFENesin E.R. 600 MG TAB PO SCH ×2 (09:54→22:17)
[2017-04-22] MEDS: DOCUSATE SODIUM 50 MG/SENNA 8.6 MG TAB PO SCH (09:54)
[2017-04-22] MEDS: VANCOMYCIN INJ 1,000 MG in SODIUM CHLOR 0.9% 250 ML INJ 250 ML IV SCH ×2 (09:57→20:00)
[2017-04-22] MEDS: BUDESONIDE-FORMOTEROL 160/4.5 MCG INHALER INH SCH ×2 (09:57→22:18)
[2017-04-22] MEDS: SODIUM CHLORIDE 0.9% FLUSH 10 ML FLUSH IV FLUSH SCH (09:58)
[2017-04-22] MEDS ORDERED: PHENYLEPH/NS 1000 MCG/10 ML SYR IV ONE (12:00)
[2017-04-22] MEDS ORDERED: PROPOFOL 200 MG/20 ML AMP IV ONE (12:00)
[2017-04-22] MEDS ORDERED: BUPIVACAINE HCL PF 0.5% 30 ML VIAL ONE (14:53)
[2017-04-22] MEDS ORDERED: DEXTROSE 50% IN WATER 50 ML VIAL(D50) IV PRN (16:45)
[2017-04-22] MEDS ORDERED: Post-op Orders (for Pharmacy) MISC OTHER ONE (16:45)
[2017-04-22] MEDS ORDERED: RESP: ALBUTEROL 2.5 MG/3 ML NEB (PRN) NEB (16:45)
[2017-04-22] MEDS ORDERED: SODIUM CHLORIDE 0.9% FLUSH 5 ML FLUSH IV FLUSH PRN (16:45)
[2017-04-22] MEDS ORDERED: MAGNESIUM HYDROXIDE SUSP 30 ML CUP PO PRN (16:45)
[2017-04-22] MEDS ORDERED: oxyCODONE/ACETAMINOPHEN 5 MG/325 MG TAB PO PRN (16:45)
[2017-04-22] MEDS ORDERED: MISC INFORMATION OTHER ONE (16:45)
[2017-04-22] MEDS ORDERED: GLUCAGON 1 MG/ML VIAL IV PRN (16:45)
[2017-04-22] MEDS ORDERED: ACETAMINOPHEN 325 MG TAB PO PRN (16:45)
[2017-04-22] MEDS ORDERED: ONDANSETRON HCL 4 MG/2 ML VIAL IV PUSH PRN (16:45)
[2017-04-22] MEDS ORDERED: DO NOT ADM ANY ANTICOAGULANT DRUGS PRN (16:49)
--- NOTE | 2017-04-22 16:53 | PD.OP ---
cc: Fabricio Lambert MD; Ninoska Adams MD Operative Report Date of Surgery: Apr 22, 2017 Preoperative Diagnosis: (1) Pleural effusion (2) PNA (pneumonia) (3) Shortness of breath Postoperative Diagnosis: same Procedure: Left thoracoscopic exploration for loculated pleural effusion, drainage of effusion, decortication, pleural biopsies Anesthesia: Dr. Hoffman Surgeon: Ninoska Adams [employer] Specialist(s): YAZMIN Wren Operation and Findings: After adequate general anesthesia the patient was placed in the right lateral decubitus position and the left chest was prepped and draped in usual manner. A small posterior port incision was performed and electrocautery was used to obtain hemostasis and carry the dissection down through the fascia. A 22G seeker needle was used initially posteriorly and serosanguious fluid was aspirated. A port was initially placed posteriorly followed by the camera. Visualization was somewhat difficult due to dense pleural inflammation and adhesions. Overall, ~500 ml of serosanguinous effusion was drained. An anterior and anterolateral port were positioned at ~6th intercostal space. Blunt dissection was used to mobilize the lower lobe and drain as much of the effusion as possible. Exploration of the left hemithorax was significant for dense pleural thickening and fibrinopurulent exudate. Pleural biopsies were sent to Pathology. Fluid was submitted for cultures and laboratory evaluation. Decortication of the lower lobe was performed was performed with good re- expansion. 2- 32F chest tubes were positioned through the anterior and anterolateral ports, and secured with 0-silk sutures. The lung was ventilated and no significant air leaks were found. The subcutaneous tissues of the posterior port was approximated running 2-0 Vicryl suture and the skin was approximated using running 4-0 Monocryl subcuticular stitch. All sponge and history counts were correct at the close the procedure and the patient was transferred to the PACU for recovery purposes. Ninoska Adams MD Apr 22, 2017 16:53
[2017-04-22] MEDS ORDERED: fentaNYL CITRATE 250 MCG/5 ML AMP ONE (17:01)
[2017-04-22] MEDS ORDERED: *morphine SULFATE 8 MG/ML PERIprocedure ONLY ONE ×2 (17:02→19:01)
[2017-04-22] MEDS: KETOROLAC TROMETHAMINE 30 MG/ML (IVP) VIAL IV PUSH SCH ×2 (17:15→23:50)
[2017-04-22] MEDS ORDERED: *MEPERIDINE 25 MG INJ VIAL PERIprocedural Use ONLY ONE (17:22)
[2017-04-22] MEDS: INSULIN ASPART SUPPLEMENTAL SCALE SQ SCH ×2 (17:45→23:50)
--- NOTE | 2017-04-22 17:50 | RADRPT ---
EXAM DATE/TIME: 04/22/2017 17:02 [facility] COMPARISON: CT THORAX W/O CONTRAST, April 19, 2017, 15:41. CHEST PA & LAT, April 17, 2017, 6:04. INDICATIONS : Status post thoracotomy. MEDICAL HISTORY : Hypertension. SURGICAL HISTORY : None. ENCOUNTER: Subsequent ACUITY: 1 week PAIN SCORE: Non-responsive. LOCATION: Bilateral chest FINDINGS: The exam demonstrates 2 large bore chest tubes on the left. There is no pneumothorax. No residual eff usion is seen. The heart normal in size. The right lung is clear. CONCLUSION: 1. 2 large bore chest tubes on the left. There has been reinflation of the left lower lobe. No residu al pneumothorax Colten Dominguez MD on April 22, 2017 at 17:48 Board Certified Radiologist. This report was verified electronically.
[2017-04-22 17:53] LABS: PLEURAL FLUID LYMPHS ND %
--- NOTE | 2017-04-22 19:05 | HHI.PR ---
Subjective Remarks Less Chest pain. No fever.Went for Decortication on left Pleural fluid was a Exudate . No hemoptysis or fever Objective Vital Signs Date Time Temp Pulse Resp B/P Pulse Ox O2 Delivery O2 Flow Rate FiO2 04/22/17 18:00 92 20 113/79 96 Nasal Cannula 3 04/22/17 17:45 90 15 113/73 95 Nasal Cannula 3 04/22/17 17:30 88 15 123/82 95 Nasal Cannula 3 04/22/17 17:15 95 15 110/64 96 Nasal Cannula 3 04/22/17 17:00 92 19 101/63 96 Nasal Cannula 3 04/22/17 16:56 88 20 99/51 94 Nasal Cannula 3 04/22/17 16:53 97.4 89 16 88/51 95 Nasal Cannula 3 04/22/17 13:17 94 Nasal Cannula 2.00 04/22/17 12:38 96.1 94 20 111/62 100 04/22/17 09:00 95 Nasal Cannula 2.00 04/22/17 08:41 98.7 106 20 109/79 95 04/22/17 05:21 95 Nasal Cannula 2.00 04/21/17 22:00 97.7 98 20 115/76 96 04/21/17 22:00 95 Nasal Cannula 2.00 04/21/17 20:21 94 I/O 04/21/17 04/21/17 04/21/17 04/22/17 04/22/17 04/22/17 07:00 15:00 23:00 07:00 15:00 23:00 Intake Total 1123 ml 1380 ml 1160 ml 685 ml 400 ml Output Total 1600 ml 920 ml Balance 1123 ml -220 ml 1160 ml 685 ml -520 ml Intake Oral 240 ml 1380 ml 360 ml 0 ml IV Total 883 ml 800 ml 685 ml Other 400 ml Output Urine Total 1600 ml 400 ml Chest Tube Drainage Total 70 ml Estimated Blood Loss 450 ml # Voids 3 2 2 # Bowel Movements 1 0 Result Diagram: 04/21/17 1145 04/20/17 0629 Objective Remarks GENERAL: This is a well-built middle-aged white male who is in pain . HEENT: Head normocephalic. Pupils are reactive and equal. Tongue is moist. Throat is dry. Nasal mucosa is clear. NECK: Supple. No bruits or lymphadenopathy or thyromegaly. CHEST: Distant breath sounds over the left chest with occasional crackles in the left mid chest. There are expiratory wheezes scattered . HEART: Heart sounds are regular, S1-S2. No murmur. No S3 gallop. ABDOMEN: The abdomen is soft, protuberant. No masses or organomegaly or tenderness. Bowel sounds are active. EXTREMITIES: No edema. No calf tenderness. Reflexes are 1+ with no gross motor deficits. The patient is alert and oriented. Skin was warm and dry. Assessment and Plan Assessment and Plan IMPRESSION 1. Left basilar pneumonia with left pleural effusion.Poss Empyema 2. Asthmatic bronchitis. 3. Pleuritic chest pain. 4. Hypokalemia. 5. Sepsis. Plan : 1. Continue Cefipime and Vanco and Zithromax. 2. O2 at 3 L 3. Chest tube to drain 4. Nebs qid , duoneb 5. CBC,BMP,CXR in am 6. Add Symbicort 160/4.5 mcg , 2 puffs bid 7. D/C Prednisone 8.IS q3h. Fabricio Lambert MD Apr 22, 2017 19:05
[2017-04-22] MEDS: AZITHROMYCIN INJ 500 MG in SODIUM CHLOR 0.9% 250 ML INJ 250 ML IV SCH (21:00)
[2017-04-22] MEDS ORDERED: BUDESONIDE-FORMOTEROL 160/4.5 MCG INHALER INH SCH (21:00)
[2017-04-22] MEDS: DOCUSATE CALCIUM 240 MG CAP PO SCH (21:00)
[2017-04-22] MEDS: SODIUM CHLORIDE 0.9% FLUSH 5 ML FLUSH IV FLUSH SCH (21:00)
[2017-04-22 21:24] LABS: TOTAL PROTEIN,PLEURAL FLUID 5.3 GM/DL
[2017-04-22] MEDS: PANTOPRAZOLE SOD 40 MG DELAYED RELEASE TAB PO SCH (22:20)
[2017-04-22] MEDS: ACETAMINOPHEN/HYDROcodone 325 MG/10 MG TAB PO PRN (23:50)
[2017-04-23] VITALS (23 sets, daily range): BP systolic 103–140; BP diastolic 71–87; PULSE 90–116; RESP 18–19; TEMP 97.6–98.4; O2SAT 93–97
[2017-04-23] MEDS: CLINDAMYCIN INJ 900 MG in SODIUM CHLORIDE 0.9% INJ 100 ML IV SCH ×3 (03:57→15:36)
[2017-04-23] MEDS: RESP: ALBUTEROL 2.5 MG/3 ML NEB (SCH) NEB ×4 (04:00→22:01)
--- NOTE | 2017-04-23 05:01 | RADRPT ---
EXAM DATE/TIME: 04/23/2017 04:08 [facility] COMPARISON: CHEST SINGLE AP, April 22, 2017, 17:02. INDICATIONS : Short of breath. MEDICAL HISTORY : Hypertension. SURGICAL HISTORY : None. ENCOUNTER: Subsequent ACUITY: 1 week PAIN SCORE: 0/10 LOCATION: Bilateral chest FINDINGS: 2 left chest drainage tubes stable in position. No evidence of pneumothorax. Lobar consolidation le ft mid and lower lung with complete loss of delineation of the left hemidiaphragm, stable from prior. The right lung is clear. Heart upper limits normal size. CONCLUSION: Persistent left lower lung consolidation. Jaylen Cerrato MD on April 23, 2017 at 4:59 Board Certified Radiologist. This report was verified electronically.
[2017-04-23] MEDS: CEFEPIME INJ 2,000 MG in SODIUM CHLORIDE 0.9% INJ 100 ML IV SCH ×2 (05:06→11:48)
[2017-04-23 05:40] LABS: BASOPHIL # 0.1 TH/MM3 (0-0.2); BASOPHIL % 0.6 % (0.0-2.0); EOSINOPHIL # 0.6 TH/MM3 (0-0.4); EOSINOPHIL % 3.6 % (0.0-4.0); LYMPH % 12.4 % (9.0-44.0); LYMPHOCYTE # 2.1 TH/MM3 (1.0-4.8); MEAN CELL VOLUME 84.4 FL (80.0-100.0); MEAN CORPUSCULAR HEMOGLOBIN 28.5 PG (27.0-34.0); MEAN CORPUSCULAR HGB CONC 33.8 % (32.0-36.0); MONO % 12.7 % (0.0-8.0); NEUT % 70.7 % (16.0-70.0); PLATELET COUNT 466 TH/MM3 (150-450); RED BLOOD COUNT 4.14 MIL/MM3 (4.50-5.90); RED CELL DISTRIBUTION WIDTH 14.7 % (11.6-17.2)
[2017-04-23 05:42] LABS: HEMO FLAGS AUTO DIFF
[2017-04-23] MEDS: ACETAMINOPHEN/HYDROcodone 325 MG/10 MG TAB PO PRN ×3 (05:47→20:19)
[2017-04-23] MEDS: KETOROLAC TROMETHAMINE 30 MG/ML (IVP) VIAL IV PUSH SCH ×2 (05:47→11:48)
[2017-04-23] MEDS: HEPARIN SODIUM - SQ 10,000 UNITS/ML VIAL SQ SCH ×2 (05:47→14:00)
[2017-04-23] MEDS: INSULIN ASPART SUPPLEMENTAL SCALE SQ SCH ×2 (05:47→11:57)
[2017-04-23 06:01] LABS: BICARBONATE 29.5 MEQ/L (21.0-32.0); POTASSIUM 4.1 MEQ/L (3.5-5.1)
[2017-04-23 08:07] LABS: BANDS 10 % (0-6); EOSINOPHILS 1 % (0-4); METAMYELOCYTES 2 % (0-1); NEUTROPHIL # MANUAL DIFF 13.4 TH/MM3 (1.8-7.7); OVALOCYTES 1+ (NORMAL); PLATELET ESTIMATE SMEAR HIGH (NORMAL); PLATELET MORPHOLOGY NORMAL (NORMAL); POLYS (SEG NEUTROPHILS) 67 % (16-70); SCAN/DIFF FINAL DIFF MANUAL; WBC DIFF SAMPLE 100
[2017-04-23] MEDS: VANCOMYCIN INJ 1,000 MG in SODIUM CHLOR 0.9% 250 ML INJ 250 ML IV SCH (08:39)
[2017-04-23] MEDS: guaiFENesin E.R. 600 MG TAB PO SCH ×2 (08:40→21:05)
[2017-04-23] MEDS: BUDESONIDE-FORMOTEROL 160/4.5 MCG INHALER INH SCH ×2 (08:40→21:00)
[2017-04-23] MEDS: SODIUM CHLORIDE 0.9% FLUSH 5 ML FLUSH IV FLUSH SCH ×2 (08:40→21:00)
[2017-04-23] MEDS: MUPIROCIN 2% OINT 1 APPLIC/GM SYR EACH NARE SCH ×2 (08:40→21:05)
[2017-04-23] MEDS: D5-1/2 NS + KCL 20 MEQ INJ 1,000 ML IV SCH (08:43)
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
--- NOTE | 2017-04-23 14:28 | HHI.FF ---
Face to Face Verification Diagnosis: (1) PNA (pneumonia) (2) Pleural effusion (3) Left thoracoscopic exploration for loculated pleural effusion, drainage of effusion, decortication, pleural biopsie Home Health Nursing Order: Medication education-adverse effect Wound care and dressing changes Nursing assessment with vital signs Instructions: Thoracic Surgery patients Mandatory frequency Assess and evaluation, 2-3 x a week for one week Initial visit 1. Review post chest surgery instructions chest precautions, Activity, Elastic hose, Incision care, Driving, Incentive spirometry, Smoking, [place] , Work and other) 2. Need Betadine to paint incision 3. Medication reconciliation 4. Importance of follow up care/ check on appointments 5. Make calendar record temperature daily 6. When to call Home nurse, review instructions, phone list 7. Incentive Spirometry, demonstration Visit 1- Begin discharge instruction for patient family and/ or caregiver using teach back method- 1. Signs and symptoms of infection 2. Disease characteristics 3. Medicines and side effects 4. Foods and nutrition/ appetite 5. Infection control/ hand washing/ hygiene Visit 2- Continue teaching 1. Discharge instructions- include additional information on smoking cessation , Visit 3- Continue teaching- 1. Cough and deep breathing, incision monitoring. For any questions please call : / [facility] Cardiothoracic Surgery Incentive spirometry Q1 hr x 10, while awake, also use acapella device hourly whole awake chest wall Precautions: NO pushing or pulling, ( pt must use chest pillow to support chest with all activities and with coughing Daily incision care: ok to shower daily, no tub bath. ok to shower 48hrs after chest tubes removed . Wash all incisions with liquid dial soap, clean wash cloth to each site, rinse and pat dry. Observe for any signs of infection, such as drainage which is dark yellow, felix, green or foul smelling. Immediately report to the surgeon any drainage from the chest incision, or legs , and for any abnormal drainage from the chest tube sites. Notify surgeon if any temp >101.5 degrees F. When specialty dressing removed/ or if you do not have one, continue to shower daily as above, then rinse and pat incision dry and paint with betadine daily x 5 days. Allow steri strips to fall off if you have any. Avoid lotions, creams, salves, oils, etc. for the first month For Dr. Adams patients , please obtain , PA & Lat CXR in 2 weeks, results to Dr. 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 Beyer & Dr. Adams), After Hours / Nights (5pm -8am) Weekends and Holidays Please call [facility] Cardiac Intermediate Care Unit (CIC) Charge Nurse I have seen patient Dejan Pollock on 04/23/17. My clinical findings support the need for the requested home health care services because: Deconditioned w/ increased weakness I certify that my clinical findings support that this patient is homebound because: Post-op weakness Mely Alejo Apr 23, 2017 14:28
[2017-04-23] MEDS: ACETAMINOPHEN/HYDROcodone 325 MG/5 MG TAB PO PRN (15:36)
--- NOTE | 2017-04-23 16:19 | PD.ID.CON ---
History of Present Illness Service ID Consult Requested By Reason for Consult Evaluation and Mment of Empyema. Primary Care Physician Unknown Diagnoses: History of Present Illness is a 47 y/o CM with history significant for extensive travel history most recently [facility] (february 2017)and [place]. Patient reports that he then stubbed his toe and went to ED but no infection or antibiotics then. He then reports going to help his family in [place] with clearing a mountain home. This was an old home and he additionally helped clear large trees by cutting and moving them. He reports getting some skin reaction ? poison ramsey and also burned some poison ramsey leaves as debris. He was treated with steroids by a local doctor and was doing ok but not improved. He then came to his PCP in [facility] who prescribed him antibiotics. He also reports travel to [facility] in the interim. He returned from [facility] and developed some cough, fevers and chills with some grayish sputum. Patient presented to the ED due to worsening above symptoms. CBC with leucocytosis on admission as well as tachycardia with lung as source meets criteria for sepsis. A CT was done in the emergency department which showed a moderate sized effusion. He underwent a thoracentesis which removed about 300 cc of dark fluid. Pleural fluid was exudative with 16,000 WBCs. Glucose was 38 from the pleural fluid. Micro pleural fluid has no growth to date. Path did show some neutrophils, a few reactive mesothelial cells consistent with empyema. No malignancy. The patient also stated when he was in [place] two years ago he lived in a house that had significant mold. He was in [place] 2 years ago he was analysis had significant mold. Travel history: Lived in [place] (mother was [place]) Was part of the wars ([place], [place] and [place] 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 Traveled to [facility], [place], [place], [place] etc. ID consulted for evaluation and Mment of Empyema (culture negative). Of note patient was on antibiotics prior to admission also has risk factors for Fungi and atypical infections. Review of Systems Constitutional: COMPLAINS OF: Fever, Chills, DENIES: Diaphoretic episodes, Fatigue, Weight gain, Weight loss, Dizziness, Change in appetite, Night Sweats Endocrine: DENIES: Heat/cold intolerance, Polydipsia, Polyuria, Polyphagia Eyes: DENIES: Blurred vision, Diplopia, Eye inflammation, Eye pain, Vision loss , Photosensitivity, Double Vision Ears, nose, mouth, throat: DENIES: Tinnitus, Hearing loss, Vertigo, Nasal discharge, Oral lesions, Throat pain, Hoarseness, Ear Pain, Running Nose, Epistaxis, Sinus Pain, Toothache, Odynophagia Respiratory: COMPLAINS OF: Cough, Sputum production, Shortness of breath, DENIES: Apneas, Snoring, Wheezing, Hemoptysis Cardiovascular: DENIES: Chest pain, Palpitations, Syncope, Dyspnea on Exertion , PND, Lower Extremity Edema, Orthopnea, Claudication Gastrointestinal: DENIES: Abdominal pain, Black stools, Bloody stools, Constipation, Diarrhea, Nausea, Vomiting, Difficulty Swallowing, Anorexia Genitourinary: DENIES: Sexual dysfunction, Urinary frequency, Urinary incontinence, Urgency, Hematuria, Dysuria, Nocturia, Penile Discharge, Testicular Pain, Testicular Swelling Musculoskeletal: DENIES: Joint pain, Muscle aches, Stiffness, Joint Swelling, Back pain, Neck pain Integumentary: DENIES: Abnormal pigmentation, Nail changes, Pruritus, Rash Hematologic/lymphatic: DENIES: Bruising, Lymphadenopathy Immunologic/allergic: DENIES: Eczema, Urticaria Neurologic: DENIES: Abnormal gait, Headache, Localized weakness, Paresthesias, Seizures, Speech Problems, Tremor, Poor Balance Psychiatric: DENIES: Anxiety, Confusion, Mood changes, Depression, Hallucinations, Agitation, Suicidal Ideation, Homicidal Ideation, Delusions Past Family Social History Allergies: Coded Allergies: acetaminophen (Unverified Allergy, Severe, HEADACHE; NAUSEA/VOMITING, 04/23) oxycodone (Unverified Allergy, Severe, HEADACHE; NAUSEA/VOMITING, 04/23/17) Past Medical History 1. Asthma as a child. 2. No prior history of pneumonia. 3. He had a right rotator cuff surgery. Past Surgical History Rotator cuff surgery Reported Medications Steroid cream Oral antibiotics. Active Ordered Medications Current Medications Medications (Trade) Dose Ordered Sig/Masha Route Start Time Stop Time Status Last Admin (Mucinex Er) 600 mg BID PO 04/15/17 09:00 04/23/17 08:40 (Tylenol) 650 mg Q6H PRN PO 04/14/17 22:15 ([place] 5-325 Mg) 1 tab Q4H PRN PO 04/14/17 22:15 04/23/17 15:36 ([place] 10-325 Mg) 1 tab Q4H PRN PO 04/15/17 13:00 04/23/17 10:30 (Heparin Inj) 5,000 units Q8HR SQ 04/15/17 14:00 Hold 04/21/17 13:45 Budesonide/ Formoterol Fumarate 2 puff 2 puff Q12HR INH 04/15/17 21:00 04/23/17 08:40 Cefepime HCl 2000 mg/Sodium Chloride 100 ml @ 200 mls/hr Q8H IV 04/15/17 21:00 04/23/17 11:48 Clindamycin Phosphate 900 mg/ Sodium Chloride 106 ml @ 212 mls/hr Q6H IV 04/17/17 22:00 04/23/17 15:36 (Vancomycin Inj/ NS 250 ml Inj) 250 ml @ 250 mls/hr Q12H IV 04/19/17 20:00 04/23/17 08:39 Mupirocin 1 applic 1 applic BID EACH NARE 04/20/17 11:45 04/25/17 11:44 04/22/17 09:54 (Lr 1000 ml Inj) 1,000 ml @ 30 mls/hr Q24H PRN IV 04/22/17 04:00 04/25/17 03:59 (NS Flush) 2 ml BID IV FLUSH 04/22/17 21:00 (NS Flush) 2 ml UNSCH PRN IV FLUSH 04/22/17 16:45 (Protonix) 40 mg HS PO 04/22/17 21:00 04/22/17 22:20 (Zofran Inj) 4 mg Q6H PRN IV PUSH 04/22/17 16:45 (Surfak) 240 mg HS PO 04/22/17 21:00 04/22/17 21:00 (Milk Of Magnesia Liq) 30 ml DAILY PRN PO 04/22/17 16:45 (Tylenol) 650 mg Q4H PRN PO 04/22/17 16:45 Family History Mother . Father had a history of coronary disease. Social History Patient is . Two children. 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 Travel above as in the history of present illness. Drinks alcohol 3-4 beers a day sometimes more. Occasional alcohol. Physical Exam Vital Signs Vital Signs Date Time Temp Pulse Resp B/P Pulse Ox O2 Delivery O2 Flow Rate FiO2 04/23/17 15:20 95 Room Air 04/23/17 15:20 98.3 102 18 140/83 96 04/23/17 15:20 105 04/23/17 14:38 109 04/23/17 13:19 97 04/23/17 12:00 96 04/23/17 11:37 93 04/23/17 11:37 97.6 92 19 126/84 95 04/23/17 11:37 95 Room Air 04/23/17 10:55 98 04/23/17 09:03 97 Nasal Cannula 3.00 04/23/17 09:00 96 04/23/17 08:00 100 04/23/17 07:10 95 Nasal Cannula 3.00 04/23/17 07:10 90 04/23/17 07:10 97.9 103 18 121/74 95 04/23/17 06:00 96 04/23/17 05:00 96 04/23/17 04:05 95 Nasal Cannula 3.00 04/23/17 04:00 95 Nasal Cannula 3.00 04/23/17 04:00 97.6 95 18 103/71 95 04/23/17 04:00 95 04/23/17 03:00 96 04/23/17 02:00 98 04/23/17 01:00 92 04/23/17 00:00 98 04/22/17 23:40 94 Nasal Cannula 2.00 04/22/17 23:30 97 Nasal Cannula 3.00 04/22/17 23:30 98.8 96 18 116/74 97 04/22/17 23:00 96 04/22/17 22:00 96 04/22/17 21:00 92 04/22/17 20:20 98.5 92 18 106/77 95 04/22/17 20:20 95 Nasal Cannula 3.00 04/22/17 20:20 92 04/22/17 19:00 98.4 91 18 110/72 95 Nasal Cannula 2 04/22/17 18:00 92 20 113/79 96 Nasal Cannula 3 04/22/17 17:45 90 15 113/73 95 Nasal Cannula 3 04/22/17 17:30 88 15 123/82 95 Nasal Cannula 3 04/22/17 17:15 95 15 110/64 96 Nasal Cannula 3 04/22/17 17:00 92 19 101/63 96 Nasal Cannula 3 04/22/17 16:56 88 20 99/51 94 Nasal Cannula 3 04/22/17 16:53 97.4 89 16 88/51 95 Nasal Cannula 3 Physical Exam GENERAL: This is a well-nourished, well-developed patient, in no apparent distress. SKIN: No rashes, ecchymoses or lesions. Cool and dry. HEAD: Atraumatic. Normocephalic. No temporal or scalp tenderness. EYES: Pupils equal round and reactive. Extraocular motions intact. No scleral icterus. No injection or drainage. ENT: Nose without bleeding, purulent drainage or septal hematoma. Throat without erythema, tonsillar hypertrophy or exudate. Uvula midline. Airway patent. NECK: Trachea midline. Supple, nontender, no meningeal signs. CARDIOVASCULAR: Regular rate and rhythm without murmurs, gallops, or rubs. RESPIRATORY: Clear to auscultation. Breath sounds decreased left side. Chest tube in place. Surgical scar ok. GASTROINTESTINAL: Abdomen soft, non-tender, nondistended. MUSCULOSKELETAL: Extremities without clubbing, cyanosis, or edema. No joint tenderness, effusion, or edema noted. No calf tenderness. Negative Homans sign bilaterally. NEUROLOGICAL: Awake and alert. Grossly non focal Psych: cooperative IV line sites with no e.o infection. Laboratory Laboratory Tests Test 04/23/17 05:00 White Blood Count 17.0 Red Blood Count 4.14 Hemoglobin 11.8 Hematocrit 35.0 Mean Corpuscular Volume 84.4 Mean Corpuscular Hemoglobin 28.5 Mean Corpuscular Hemoglobin 33.8 Concent Red Cell Distribution Width 14.7 Platelet Count 466 Mean Platelet Volume 8.2 Neutrophils (%) (Auto) 70.7 Lymphocytes (%) (Auto) 12.4 Monocytes (%) (Auto) 12.7 Eosinophils (%) (Auto) 3.6 Basophils (%) (Auto) 0.6 Neutrophils # (Auto) 12.0 Lymphocytes # (Auto) 2.1 Monocytes # (Auto) 2.2 Eosinophils # (Auto) 0.6 Basophils # (Auto) 0.1 CBC Comment AUTO DIFF Differential Total Cells 100 Counted Neutrophils % (Manual) 67 Band Neutrophils % 10 Lymphocytes % 10 Monocytes % 10 Eosinophils % 1 Neutrophils # (Manual) 13.4 Metamyelocytes 2 Differential Comment FINAL DIFF MANUAL Platelet Estimate HIGH Platelet Morphology Comment NORMAL Ovalocytes 1+ Sodium Level 134 Potassium Level 4.1 Chloride Level 99 Carbon Dioxide Level 29.5 Anion Gap 6 Blood Urea Nitrogen 17 Creatinine 0.67 Estimat Glomerular Filtration 126 Rate Random Glucose 113 Calcium Level 8.1 Date/Time Procedure Status Source Growth 04/22/17 15:50 Gram Stain - Final Resulted Fluid Pleural Fluid 04/22/17 15:50 Body Fluid Culture - Preliminary Resulted Fluid Pleural Fluid NO GROWTH IN 24 HOURS. 04/22/17 15:50 Fungal Smear - Final Resulted Fluid Pleural Fluid NO FUNGAL ELEMENTS SEEN. 04/22/17 15:50 Fungal Culture Resulted Fluid Pleural Fluid Pending 04/22/17 15:50 Acid Fast Stain Received Fluid Pleural Fluid Pending 04/22/17 15:50 Mycobacterial Culture Received Fluid Pleural Fluid Pending Result Diagram: 04/23/17 0500 04/23/17 0500 Imaging Last Impressions Chest X-Ray 04/23/17 0500 Signed Impressions: Service Date/Time: Sunday, April 23, 2017 04:08 - CONCLUSION: Persistent left lower lung consolidation. Jaylen Cerrato MD Chest CT 04/19/17 0000 Signed Impressions: Service Date/Time: Wednesday, April 19, 2017 15:41 - CONCLUSION: 1. Reaccumulation of a small to moderate-sized left pleural effusion. 2. Persistent dense consolidation of the left lower lobe. 3. New patchy air space disease in the right apex and right lower lobe. Paul Spence MD Thoracentesis Ultrasound 04/15/17 0000 Signed Impressions: Service Date/Time: Saturday, April 15, 2017 09:17 - CONCLUSION: Unsuccessful ultrasound guided thoracentesis. Lobo Dominguez MD FACR Thoracentesis 04/15/17 0000 Signed Impressions: Service Date/Time: Saturday, April 15, 2017 09:57 - CONCLUSION: Uncomplicated CT-guided left thoracentesis. Lobo Dominguez MD FACR CT Angiography 04/14/17 1918 Signed Impressions: Service Date/Time: Friday, April 14, 2017 21:22 - CONCLUSION: 1. Study limited by motion artifact and contrast bolus but no large central emboli are identified. 2. Moderate left effusion and compressive atelectasis posteriorly in the left lung. Moderate coronary calcifications. Rowdy Mckinley MD Assessment and Plan Assessment and Plan Empyema DDx: Bacterial (Of note patient was on antibiotics prior to admission) Fungal: also has risk factors for Fungi and atypical infections. Pneumonia few weeks back based on history of travel to [facility] Significant travel history worldwide Significant exposure history in [place] as risk factors for Fungi. Recs: DC Vanco IV Random Vanco level to assess risk for toxicity (no levels since started) DC Cefepime IV DC Clindamycin IV (at risk for Cdiff as needs a prolonged course of antibiotics) Start Unasyn IV (this has good anaerobic coverage for aspiration related empyema ) DC Azithro has received over 10 plus days for atypical pneumonia. Cultures normal resp abena which is either c/w aspiration PNA, partially treated pneumonia or atypical infections (like fungal) Follow intraop path. follow cultures Follow clinically. Case dw patient and RN Troy.w patient about above plan. Agreed to further testing including HIV and Hepatitis profile. Susu Hickey MD Apr 23, 2017 16:19 Susu Hickey MD Apr 23, 2017 16:19
[2017-04-23] MEDS ORDERED: METOPROLOL TARTRATE 25 MG TAB PO ONE (17:30)
[2017-04-23] MEDS: AMPICILLIN-SULBACTAM INJ 1,500 MG in SODIUM CHLORIDE 0.9% INJ 100 ML IV SCH (18:13)
--- NOTE | 2017-04-23 19:35 | HHI.PR ---
Subjective Remarks Less Chest pain. No fever.Went for Decortication on left. Chest tube still in.Seen by ID. Pleural fluid shows no growth . Now on unasyn for poss anaerobes Objective Vital Signs Date Time Temp Pulse Resp B/P Pulse Ox O2 Delivery O2 Flow Rate FiO2 04/23/17 18:11 112 04/23/17 17:06 116 04/23/17 16:21 112 04/23/17 15:20 95 Room Air 04/23/17 15:20 98.3 102 18 140/83 96 04/23/17 15:20 105 04/23/17 14:38 109 04/23/17 13:19 97 04/23/17 12:00 96 04/23/17 11:37 93 04/23/17 11:37 97.6 92 19 126/84 95 04/23/17 11:37 95 Room Air 04/23/17 10:55 98 04/23/17 09:03 97 Nasal Cannula 3.00 04/23/17 09:00 96 04/23/17 08:00 100 04/23/17 07:10 95 Nasal Cannula 3.00 04/23/17 07:10 90 04/23/17 07:10 97.9 103 18 121/74 95 04/23/17 06:00 96 04/23/17 05:00 96 04/23/17 04:05 95 Nasal Cannula 3.00 04/23/17 04:00 95 Nasal Cannula 3.00 04/23/17 04:00 97.6 95 18 103/71 95 04/23/17 04:00 95 04/23/17 03:00 96 04/23/17 02:00 98 04/23/17 01:00 92 04/23/17 00:00 98 04/22/17 23:40 94 Nasal Cannula 2.00 04/22/17 23:30 97 Nasal Cannula 3.00 04/22/17 23:30 98.8 96 18 116/74 97 04/22/17 23:00 96 04/22/17 22:00 96 04/22/17 21:00 92 04/22/17 20:20 98.5 92 18 106/77 95 04/22/17 20:20 95 Nasal Cannula 3.00 04/22/17 20:20 92 I/O 8/14/17 804/22/17 04/23/17 04/23/17 04/23/17 07:00 15:00 23:00 07:00 15:00 23:00 Intake Total 685 ml 660 ml 1574 ml 2201 ml Output Total 1060 ml 570 ml 822 ml Balance 685 ml -400 ml 1004 ml 1379 ml Intake Oral 0 ml 260 ml 240 ml 1200 ml IV Total 685 ml 1334 ml 1001 ml Other 400 ml Output Urine Total 500 ml 500 ml 650 ml Chest Tube Drainage Total 110 ml 70 ml Drainage Total 172 ml Estimated Blood Loss 450 ml # Voids 2 1 # Bowel Movements 0 Result Diagram: 04/23/17 0500 04/23/17 0500 Objective Remarks GENERAL: This is a well-built middle-aged white male who is alert HEENT: Head normocephalic. Pupils are reactive and equal. Throat is clear. Nasal mucosa is clear. NECK: Supple. No bruits or lymphadenopathy or thyromegaly. CHEST: Distant breath sounds over the left chest with expiratory wheezes scattered . HEART: Heart sounds are regular, S1-S2. No murmur. No S3 gallop. ABDOMEN: The abdomen is soft, protuberant. No masses or organomegaly or tenderness. Bowel sounds are active. EXTREMITIES: No edema. No calf tenderness. Reflexes are 1+ with no gross motor deficits. The patient is alert and oriented. Skin was warm and dry. Assessment and Plan Assessment and Plan IMPRESSION 1. Left basilar pneumonia with left pleural effusion.Poss Empyema 2. Asthmatic bronchitis. 3. Pleuritic chest pain. 4. Hypokalemia. 5. Sepsis. Plan : 1. Continue Unasyn per ID 2. O2 PRN 2 L 3. Chest tube to drain 4. Nebs qid , duoneb 5. CBC,BMP, in am 6. Symbicort 160/4.5 mcg , 2 puffs bid 7.IS q2h. Fabricio Lambert MD Apr 23, 2017 19:35
[2017-04-23] MEDS: METOPROLOL TARTRATE 25 MG TAB PO SCH (21:05)
[2017-04-23] MEDS: PANTOPRAZOLE SOD 40 MG DELAYED RELEASE TAB PO SCH (21:05)
[2017-04-23] MEDS: DOCUSATE CALCIUM 240 MG CAP PO SCH (21:05)
[2017-04-24] VITALS (25 sets, daily range): BP systolic 109–125; BP diastolic 73–85; PULSE 92–113; RESP 18–25; TEMP 97.2–98.9; O2SAT 93–96
[2017-04-24] MEDS: ACETAMINOPHEN/HYDROcodone 325 MG/10 MG TAB PO PRN ×6 (00:21→23:23)
[2017-04-24] MEDS: AMPICILLIN-SULBACTAM INJ 1,500 MG in SODIUM CHLORIDE 0.9% INJ 100 ML IV SCH ×5 (00:26→23:23)
[2017-04-24] MEDS: RESP: ALBUTEROL 2.5 MG/3 ML NEB (SCH) NEB ×4 (03:43→21:46)
[2017-04-24 07:08] LABS: HEMATOCRIT 33.6 % (39.0-51.0); MEAN CELL VOLUME 83.6 FL (80.0-100.0); MEAN CORPUSCULAR HEMOGLOBIN 28.6 PG (27.0-34.0); MEAN CORPUSCULAR HGB CONC 34.2 % (32.0-36.0); PLATELET COUNT 499 TH/MM3 (150-450); RED BLOOD COUNT 4.02 MIL/MM3 (4.50-5.90); RED CELL DISTRIBUTION WIDTH 14.5 % (11.6-17.2); REVIEW FLAG FINAL; WHITE BLOOD COUNT 16.9 TH/MM3 (4.0-11.0)
[2017-04-24 07:14] LABS: BICARBONATE 30.6 MEQ/L (21.0-32.0); POTASSIUM 3.8 MEQ/L (3.5-5.1)
[2017-04-24] MEDS: guaiFENesin E.R. 600 MG TAB PO SCH ×2 (08:18→21:34)
[2017-04-24] MEDS: MUPIROCIN 2% OINT 1 APPLIC/GM SYR EACH NARE SCH ×2 (08:19→19:28)
[2017-04-24] MEDS: BUDESONIDE-FORMOTEROL 160/4.5 MCG INHALER INH SCH ×2 (08:19→21:35)
[2017-04-24] MEDS: METOPROLOL TARTRATE 25 MG TAB PO SCH ×2 (08:19→21:35)
[2017-04-24] MEDS: SODIUM CHLORIDE 0.9% FLUSH 5 ML FLUSH IV FLUSH SCH ×2 (08:20→21:00)
--- NOTE | 2017-04-24 11:54 | HHI.PR ---
Subjective Remarks Better today . No fever.Went for Decortication on left. Chest tube still in.Doing 2000 CC with IS Pleural fluid shows no growth . Now on unasyn for poss anaerobes Objective Vital Signs Date Time Temp Pulse Resp B/P Pulse Ox O2 Delivery O2 Flow Rate FiO2 04/24/17 10:29 18 04/24/17 10:11 92 04/24/17 08:30 106 04/24/17 08:24 93 21 04/24/17 07:51 103 04/24/17 07:51 97.2 103 18 109/76 94 04/24/17 07:51 94 Room Air 04/24/17 06:00 101 04/24/17 05:00 100 04/24/17 04:00 107 04/24/17 04:00 97.8 107 22 122/83 96 04/24/17 03:44 96 21 04/24/17 03:12 97 Room Air 04/24/17 03:00 105 04/24/17 00:00 98.7 105 22 116/76 96 04/24/17 00:00 97 Room Air 04/23/17 22:03 93 21 04/23/17 20:00 96 Room Air 04/23/17 20:00 98.4 108 18 126/87 95 04/23/17 18:11 112 04/23/17 17:06 116 04/23/17 16:21 112 04/23/17 15:20 95 Room Air 04/23/17 15:20 98.3 102 18 140/83 96 04/23/17 15:20 105 04/23/17 14:38 109 04/23/17 13:19 97 04/23/17 12:00 96 I/O 04/23/17 04/23/17 04/23/17 04/24/17 04/24/17 04/24/17 07:00 15:00 23:00 07:00 15:00 23:00 Intake Total 1574 ml 2201 ml 240 ml Output Total 570 ml 822 ml 760 ml Balance 1004 ml 1379 ml -520 ml Intake Oral 240 ml 1200 ml 240 ml IV Total 1334 ml 1001 ml Output Urine Total 500 ml 650 ml 700 ml Chest Tube Drainage Total 70 ml Drainage Total 172 ml 60 ml # Voids 1 # Bowel Movements 0 Result Diagram: 04/24/17 0604/24/17 0600 Objective Remarks GENERAL: This is a well-built middle-aged white male who is alert HEENT: Head normocephalic. Pupils are reactive and equal. Throat is clear. Nasal mucosa is clear. NECK: Supple. No bruits or lymphadenopathy or thyromegaly. CHEST: Distant breath sounds over the left chest . HEART: Heart sounds are regular, S1-S2. No murmur. No S3 gallop. ABDOMEN: The abdomen is soft, protuberant. No masses or organomegaly or tenderness. Bowel sounds are active. EXTREMITIES: No edema. No calf tenderness. Reflexes are 1+ with no gross motor deficits. The patient is alert and oriented. Skin was warm and dry. Assessment and Plan Assessment and Plan IMPRESSION 1. Left basilar pneumonia with left pleural effusion.Poss Empyema 2. Asthmatic bronchitis. 3. Pleuritic chest pain. 4. Hypokalemia. 5. Sepsis. Plan : 1. Continue Unasyn per ID 2. O2 PRN 2 L 3. Chest tube to drain 4. Nebs qid , duoneb 5. CXR in am 6. Symbicort 160/4.5 mcg , 2 puffs bid 7. IS q2h. 8. PFT when stable Fabricio Lambert MD Apr 24, 2017 11:54
--- NOTE | 2017-04-24 12:29 | HHI.PR ---
Subjective Remarks Follow for empyema and decortication Patient complaining of increase of pain of his left chest with procedure was done. He denies any shortness of breathing. He seems to not want to move because of the pain. Denies any cough. Otherwise he has no other complaints. Objective Vitals Vital Signs Date Time Temp Pulse Resp B/P Pulse Ox O2 Delivery O2 Flow Rate FiO2 04/24/17 12:01 95 04/24/17 11:42 97 04/24/17 11:42 97.4 93 18 121/78 93 04/24/17 11:42 93 Room Air 04/24/17 10:29 18 04/24/17 10:11 92 04/24/17 08:30 106 04/24/17 08:24 93 21 04/24/17 07:51 103 04/24/17 07:51 97.2 103 18 109/76 94 04/24/17 07:51 94 Room Air 04/24/17 06:00 101 04/24/17 05:00 100 04/24/17 04:00 107 04/24/17 04:00 97.8 107 22 122/83 96 04/24/17 03:44 96 21 04/24/17 03:12 97 Room Air 04/24/17 03:00 105 04/24/17 00:00 98.7 105 22 116/76 96 04/24/17 00:00 97 Room Air 04/23/17 22:03 93 21 04/23/17 20:00 96 Room Air 04/23/17 20:00 98.4 108 18 126/87 95 04/23/17 18:11 112 04/23/17 17:06 116 04/23/17 16:21 112 04/23/17 15:20 95 Room Air 04/23/17 15:20 98.3 102 18 140/83 96 04/23/17 15:20 105 04/23/17 14:38 109 04/23/17 13:19 97 I/O 04/23/17 04/23/17 04/23/17 04/24/17 04/24/17 04/24/17 07:00 15:00 23:00 07:00 15:00 23:00 Intake Total 1574 ml 2201 ml 240 ml Output Total 570 ml 822 ml 760 ml Balance 1004 ml 1379 ml -520 ml Intake Oral 240 ml 1200 ml 240 ml IV Total 1334 ml 1001 ml Output Urine Total 500 ml 650 ml 700 ml Chest Tube Drainage Total 70 ml Drainage Total 172 ml 60 ml # Voids 1 # Bowel Movements 0 Result Diagram: 04/24/17 0600 04/24/17 0600 Objective Remarks GENERAL: In no acute distress. CARDIOVASCULAR: Regular rate and rhythm without murmurs, gallops, or rubs. RESPIRATORY: Right lung clear to all station. Right sided lungs some crackles and decreased breath sounds. Chest tube in place. Serosanguineous. No accessory muscle use. GASTROINTESTINAL: Abdomen soft, non-tender, nondistended. MUSCULOSKELETAL: No cyanosis, or edema. BACK: Nontender without obvious deformity. No CVA tenderness. Medications and IVs Current Medications Aspirin (Aspirin) 325 mg ONCE ONCE PO Last administered on 04/14/17 19:43; Start 04/14/17 at 19:30; Stop 04/14/17 at 19:31; Status DC Hydromorphone HCl (Dilaudid Pf Inj) 0.5 mg ONCE ONCE IV PUSH Last administered on 04/14/17 19:43; Start 04/14/17 at 19:30; Stop 04/14/17 at 19:31; Status DC Ondansetron HCl 4 mg 4 mg ONCE ONCE IV PUSH Last administered on 04/14/17 19: 43; Start 04/14/17 at 19:30; Stop 04/14/17 at 19:31; Status DC Ceftriaxone Sodium 1000 mg/ Sodium Chloride 100 ml @ 200 mls/hr ONCE ONCE IV Last administered on 04/14/17 21:31; Start 04/14/17 at 20:00; Stop 04/14/17 at 20: 29; Status DC Azithromycin 500 mg/Sodium Chloride 250 ml @ 250 mls/hr ONCE ONCE IV Last administered on 04/14/17 21:54; Start 04/14/17 at 20:00; Stop 04/14/17 at 20:59; Status DC Calcium Gluconate/ Dextrose (Calcium Gluconate Inj/D5W 100 ml Inj) 110 ml @ 110 mls/hr ONCE ONCE IV Last administered on 04/14/17 22:56; Start 04/14/17 at 20:30; Stop 04/14/17 at 21:29; Status DC Potassium Chloride (KCl) 30 meq ONCE ONCE PO Last administered on 04/14/17 21: 30; Start 04/14/17 at 21:00; Stop 04/14/17 at 21:04; Status DC Iohexol 75 ml 75 ml STK-MED ONCE IV Last administered on 04/14/17 21:24; Start 04/14/17 at 21:24; Stop 04/14/17 at 21:25; Status DC Ceftriaxone Sodium 1000 mg/ Sodium Chloride 100 ml @ 200 mls/hr Q24H IV ; Start 04/15/17 at 22:00; Stop 04/15/17 at 22:00; Status DC Azithromycin/ Sodium Chloride (Zithromax Inj/ NS 250 ml Inj) 250 ml @ 250 mls/ hr Q24H IV Last administered on 04/22/17 21:00; Start 04/15/17 at 21:00; Stop 04/23/17 at 16:21; Status DC Albuterol/ Ipratropium (Duoneb Neb) 1 ampule Q2HR NEB PRN NEB SOB/WHEEZING; Start 04/14/17 at 22:15; Stop 04/23/17 at 14:06; Status DC Guaifenesin (Mucinex Er) 600 mg BID PO Last administered on 04/24/17 08:18; Start 04/15/17 at 09:00 Budesonide/ Formoterol Fumarate (Symbicort 160-4.5 Inh) 2 puff Q12HR INH Last administered on 04/16/17 12:01; Start 04/15/17 at 09:00; Stop 04/17/17 at 20:26; Status DC Sodium Chloride (NS Flush) 2 ml UNSCH PRN IV FLUSH FLUSH AFTER USING IV ACCESS ; Start 04/14/17 at 22:15; Stop 04/22/17 at 20:18; Status DC Sodium Chloride (NS Flush) 2 ml BID IV FLUSH Last administered on 04/21/17 22: 02; Start 04/15/17 at 09:00; Stop 04/22/17 at 20:18; Status DC Ondansetron HCl (Zofran Inj) 4 mg Q6H PRN IVP NAUSEA OR VOMITING; Start at 22:15; Stop 04/22/17 at 20:18; Status DC Acetaminophen (Tylenol) 650 mg Q6H PRN PO FEVER/PAIN SCALE 1 TO 2; Start at 22:15 Acetaminophen/ Hydrocodone Bitart ([place] 5-325 Mg) 1 tab Q4H PRN PO PAIN SCALE 3 TO 5 Last administered on 04/23/17 15:36; Start 04/14/17 at 22:15 Morphine Sulfate (Morphine Inj) 2 mg Q3H PRN IV BREAKTHROUGH PAIN Last administered on 04/16/17 22:10; Start 04/14/17 at 22:15; Stop 04/22/17 at 16:43; Status DC Senna/Docusate Sodium (Susan-Colace) 1 tab BID PO Last administered on 09:54; Start 04/15/17 at 09:00; Stop 04/22/17 at 20:14; Status DC Magnesium Hydroxide (Milk Of Magnesia Liq) 30 ml Q12H PRN PO MILD - MODERATE CONSTIPATION; Start 04/14/17 at 22:15; Stop 04/22/17 at 19:44; Status DC Sennosides (Senokot) 17.2 mg Q12H PRN PO MODERATE - SEVERE CONSTIPATION; Start 04/14/17 at 22:15; Stop 04/22/17 at 20:16; Status DC Bisacodyl (Dulcolax Supp) 10 mg DAILY PRN RECTAL SEVERE CONSITIPATION; Start at 22:15; Stop 04/22/17 at 20:12; Status DC Lactulose (Lactulose Liq) 30 ml DAILY PRN PO SEVERE CONSITIPATION; Start at 22:15; Stop 04/22/17 at 20:13; Status DC Lidocaine HCl (Xylocaine-Mpf 1% Inj) 30 ml STK-MED ONCE .ROUTE Last administered on 04/15/17 10:07; Start 04/15/17 at 10:07; Stop 04/15/17 at 10:08; Status DC Fentanyl Citrate (fentaNYL INJ) 250 mcg STK-MED ONCE .ROUTE Last administered on 04/15/17 10:11; Start 04/15/17 at 10:11; Stop 04/15/17 at 10:12; Status DC Acetaminophen/ Hydrocodone Bitart ([place] 10-325 Mg) 1 tab Q4H PRN PO PAIN SCALE 6 TO 10 Last administered on 04/24/17 12:26; Start 04/15/17 at 13:00 Heparin Sodium (Porcine) (Heparin Inj) 5,000 units Q8HR SQ Last administered on 04/21/17 13:45; Start 04/15/17 at 14:00; Status Hold Methylprednisolone Sodium Succinate (SoluMEDROL INJ) 40 mg Q6HR IV Last administered on 04/16/17 17:29; Start 04/16/17 at 00:00; Stop 04/16/17 at 20:05; Status DC Albuterol/ Ipratropium (Duoneb Neb) 1 ampule Q4HR NEB NEB Last administered on 04/19/17 16:22; Start 04/15/17 at 20:00; Stop 04/19/17 at 20:00; Status DC Budesonide/ Formoterol Fumarate 2 puff 2 puff Q12HR INH Last administered on 08:19; Start 04/15/17 at 21:00 Cefepime HCl 2000 mg/Sodium Chloride 100 ml @ 200 mls/hr Q8H IV Last administered on 04/23/17 11:48; Start 04/15/17 at 21:00; Stop 04/23/17 at 16:21 ; Status DC Potassium Chloride/Dextrose/ Sod Cl (D5-1/2 NS + KCl 20 Meq Inj) 1,000 ml @ 84 mls/hr [id number] IV Last administered on 04/23/17 08:43; Start 04/15/17 at 20:00 ; Stop 04/23/17 at 14:06; Status DC Potassium Chloride 60 meq 60 meq ONCE ONCE PO Last administered on 04/16/17 09 :11; Start 04/16/17 at 08:15; Stop 04/16/17 at 08:16; Status DC Potassium Chloride (KCl 10 Meq Premix Inj) 100 ml @ 100 mls/hr BOLUS ONCE IV Last administered on 04/16/17 09:11; Start 04/16/17 at 08:15; Stop 04/16/17 at 09: 14; Status DC Methylprednisolone Sodium Succinate 40 mg 40 mg Q8HR IV Last administered on 06:00; Start 04/17/17 at 06:00; Stop 04/18/17 at 12:34; Status DC Clindamycin Phosphate 900 mg/ Sodium Chloride 106 ml @ 212 mls/hr Q6H IV Last administered on 04/23/17 15:36; Start 04/17/17 at 22:00; Stop 04/23/17 at 16:22 ; Status DC Sodium Phosphate/ Sodium Chloride (Sodium Phosphate Inj/NS Inj) 155 ml @ 38.75 mls/ hr ONCE ONCE IV Last administered on 04/17/17 22:11; Start 04/17/17 at 22: 00; Stop 04/18/17 at 01:59; Status DC Prednisone 10 mg 10 mg DAILY PO ; Start 04/19/17 at 09:00; Stop 04/19/17 at 09: 00; Status DC Vancomycin HCl 1000 mg/Sodium Chloride 250 ml @ 250 mls/hr Q12H IV Last administered on 04/23/17 08:39; Start 04/19/17 at 20:00; Stop 04/23/17 at 16:22 ; Status DC Cefazolin Sodium/ Dextrose (Ancef 2 Gm Premix) 50 ml @ 100 mls/hr REPORTS ANALYSIS MANAGER IV ; Start 04/20/17 at 11:45; Stop 04/24/17 at 11:44; Status DC Metoprolol Tartrate (Lopressor) 12.5 mg REPORTS ANALYSIS MANAGER PO ; Start 04/20/17 at 11:45; Stop 04/23/17 at 14:06; Status DC Mupirocin (Bactroban Nasal 2% Oint) 1 applic BID EACH NARE Last administered on 04/24/17 08:19; Start 04/20/17 at 11:45; Stop 04/25/17 at 11:44 Chlorhexidine Gluconate 1 applic 1 applic REPORTS ANALYSIS MANAGER TOPICAL Last administered on 04/22/17 14:35; Start 04/20/17 at 11:45; Stop 04/23/17 at 14:07; Status DC Insulin Human Regular 100 units/ Sodium Chloride 101 ml @ 0 mls/hr REPORTS ANALYSIS MANAGER IV ; Start 04/20/17 at 11:45; Stop 04/23/17 at 14:07; Status DC Lactated Ringer's (Lr 1000 ml Inj) 1,000 ml @ 30 mls/hr Q24H PRN IV SEE LABEL COMMENTS; Start 04/22/17 at 04:00; Stop 04/25/17 at 03:59 Povidone Iodine (Betadine 5% Antisepsis Kit) 1 applic REPORTS ANALYSIS MANAGER PRN EACH NARE SEE LABEL COMMENTS; Start 04/22/17 at 04:00; Stop 04/25/17 at 03:59 Chlorhexidine Gluconate (Chlorhexidine 2% Cloth) 3 pack REPORTS ANALYSIS MANAGER PRN TOPICAL SEE LABEL COMMENTS; Start 04/22/17 at 04:00; Stop 04/23/17 at 14:07; Status DC Bupivacaine HCl (Marcaine Pf 0.5% Inj) 30 ml STK-MED ONCE .ROUTE Last administered on 04/22/17 16:30; Start 04/22/17 at 14:53; Stop 04/23/17 at 14:07 ; Status DC Albuterol Sulfate (Albuterol Neb) 2.5 mg Q6HR NEB NEB Last administered on 08:22; Start 04/22/17 at 22:00 Albuterol Sulfate (Albuterol Neb) 2.5 mg Q2HR NEB PRN NEB WHEEZING; Start 04/22 at 16:45 IV Flush (NS Flush) 2 ml BID IV FLUSH Last administered on 04/24/17 08:20; Start 04/22/17 at 21:00 IV Flush (NS Flush) 2 ml UNSCH PRN IV FLUSH FLUSH AFTER USING IV ACCESS; Start 04/22/17 at 16:45 Miscellaneous Information (Post-op Orders (for Pharmacy)) STAT ONCE OTHER ; Start 04/22/17 at 16:45; Stop 04/22/17 at 20:08; Status DC Pantoprazole Sodium (Protonix) 40 mg HS PO Last administered on 04/23/17 21:05 ; Start 04/22/17 at 21:00 Ondansetron HCl (Zofran Inj) 4 mg Q6H PRN IV PUSH NAUSEA OR VOMITING; Start at 16:45 Docusate Calcium (Surfak) 240 mg HS PO Last administered on 04/23/17 21:05; Start 04/22/17 at 21:00 Magnesium Hydroxide (Milk Of Magnesia Liq) 30 ml DAILY PRN PO CONSTIPATION; Start 04/22/17 at 16:45 Acetaminophen (Tylenol) 650 mg Q4H PRN PO TEMPERATURE > 101 F; Start 04/22/17 at 16:45 Insulin Aspart (NovoLOG SUPPLEMENTAL SCALE) Q6HR SQ ; Start 04/22/17 at 18:00; Stop 04/23/17 at 14:07; Status DC Miscellaneous Information 1 ONCE ONCE OTHER ; Start 04/22/17 at 16:45; Stop at 16:46; Status UNV Dextrose (D50w (Vial) Inj) 50 ml UNSCH PRN IV HYPOGLYCEMIA-SEE COMMENTS; Start 04/22/17 at 16:45; Stop 04/23/17 at 14:07; Status DC Glucagon (Glucagon Inj) 1 mg UNSCH PRN IV HYPOGLYCEMIA-SEE COMMENTS; Start at 16:45; Stop 04/23/17 at 14:06; Status DC Oxycodone/ Acetaminophen (Percocet 5-325 Mg) 1 tab Q3H PRN PO PAIN SCALE 3 TO 5; Start 04/22/17 at 16:45; Status UNV Ketorolac Tromethamine (Toradol Inj) 15 mg Q6H IV PUSH Last administered on 11:48; Start 04/22/17 at 18:00; Stop 04/23/17 at 12:01; Status DC Fentanyl Citrate (fentaNYL INJ) 500 mcg STK-MED ONCE .ROUTE ; Start 04/22/17 at 17:01; Stop 04/22/17 at 17:02; Status DC Morphine Sulfate (*morphine INJ PERIprocedure ONLY) 8 mg STK-MED ONCE .ROUTE Last administered on 04/22/17 17:02; Start 04/22/17 at 17:02; Stop 04/23/17 at 14:06; Status DC Meperidine HCl (*DEMEROL INJ PERIprocedural ONLY) 25 mg STK-MED ONCE .ROUTE Last administered on 04/22/17 17:22; Start 04/22/17 at 17:22; Stop 04/23/17 at 14:06; Status DC Miscellaneous Information ALL NURSING DEPARTME... UNSCH PRN .XX SEE LABEL COMMENTS; Start 04/22/17 at 16:49; Stop 04/23/17 at 14:06; Status DC Morphine Sulfate (*morphine INJ PERIprocedure ONLY) 8 mg STK-MED ONCE .ROUTE Last administered on 04/22/17 19:01; Start 04/22/17 at 19:01; Stop 04/23/17 at 14:06; Status DC Budesonide/ Formoterol Fumarate 2 puff 2 puff Q12HR INH ; Start 04/22/17 at 21: 00; Status UNV Ampicillin Sodium/ Sulbactam Sodium/ Sodium Chloride (Unasyn Inj/NS Inj) 100 ml @ 200 mls/hr Q6H IV Last administered on 04/24/17 12:26; Start 04/23/17 at 18 :00 Metoprolol Tartrate (Lopressor) 25 mg BID PO Last administered on 04/24/17 08: 19; Start 04/23/17 at 21:00 Metoprolol Tartrate (Lopressor) 25 mg NOW ONCE PO Last administered on 18:13; Start 04/23/17 at 17:30; Stop 04/23/17 at 17:31; Status DC Morphine Sulfate (Oramorph Sr) 15 mg Q12HR PO ; Start 04/24/17 at 13:00 A/P Problem List: (1) Sepsis ICD Code: A41.9 Status: Acute (2) PNA (pneumonia) ICD Code: J18.9 Status: Acute (3) Pleural effusion ICD Code: J90 Status: Acute (4) Hypocalcemia ICD Code: E83.51 Status: Acute (5) Hypokalemia ICD Code: E87.6 Status: Acute Assessment and Plan This is a 47-year-old male with no significant PMH severe SOB and left-sided rib pain - Sepsis: HR 120's, RR 24, WBC 15, Source-presumed PNA/empyema. - s/p CT guided thoracentesis (u/s guided was unsuccessful). - cardiothoracic and pulmonary following. -See treatment as below. -Left basilar pneumonia complicated by empyema: -CXR w/ basilar atelectasis possibly PNA, CTA negative for PE, moderate pleural effusion. DuoNeb prn. - s/p thoracentesis. White blood cells 25584, RBCs 4000. Pleural LDH 824 - Follow up fluid cultures, continue negative to date -Status post Left thoracoscopic exploration for loculated pleural effusion, drainage of effusion, decortication, pleural biopsies on [id number] - Previously patient was on Azithromycin, Cefepime and Clindamycin. Infectious disease consulted. Appreciate consult. Per infectious disease azithromycin cefepime and clindamycin was discontinued yesterday. Patient now on Ancef. -Pain uncontrolled. Patient is allergic to oxycodone. Will try Oramorph. Continue Narco when necessary. - Hypokalemia: Currently resolved after replacement. - Continue to monitor and replace as necessary. - Hypocalcemia: Ca 5.9, corrected 6.7. Asymptomatic. S/p replacement, resolved. Full code. Heparin SQ. Problem Qualifiers (1) Sepsis: Qualified Code: A41.9 - Sepsis, due to unspecified organism Taina Gudino MD Apr 24, 2017 12:28
[2017-04-24] MEDS: MORPHINE SULFATE 15 MG CONTROLLED RELEASE TAB PO SCH ×2 (15:25→21:35)
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
[2017-04-24] MEDS: PANTOPRAZOLE SOD 40 MG DELAYED RELEASE TAB PO SCH (21:34)
[2017-04-24] MEDS: DOCUSATE CALCIUM 240 MG CAP PO SCH (21:35)
[2017-04-25] VITALS (29 sets, daily range): BP systolic 110–129; BP diastolic 68–86; PULSE 88–112; RESP 18–20; TEMP 97.6–98.7; O2SAT 93–98
[2017-04-25] MEDS: RESP: ALBUTEROL 2.5 MG/3 ML NEB (SCH) NEB ×4 (03:06→20:32)
[2017-04-25] MEDS: ACETAMINOPHEN/HYDROcodone 325 MG/10 MG TAB PO PRN ×5 (03:52→20:40)
[2017-04-25] MEDS: AMPICILLIN-SULBACTAM INJ 1,500 MG in SODIUM CHLORIDE 0.9% INJ 100 ML IV SCH ×4 (06:09→23:39)
--- NOTE | 2017-04-25 06:15 | RADRPT ---
EXAM DATE/TIME: 04/25/2017 05:05 [facility] COMPARISON: CHEST SINGLE AP, April 23, 2017, 4:08. INDICATIONS : Shortness of breath, possible pulmonary disease. MEDICAL HISTORY : Hypertension. SURGICAL HISTORY : None. ENCOUNTER: Subsequent ACUITY: 1 week PAIN SCORE: 0/10 LOCATION: Bilateral chest FINDINGS: 2 left chest drainage tubes stable in position. Persisting consolidation left mid and lower lung wit h loss of delineation of the entire left hemidiaphragm and lateral inferior left heart border. The r ight lung is clear. No evidence of mediastinal shift. CONCLUSION: Persistent left mid and lower lung consolidation. Jaylen Cerrato MD on April 25, 2017 at 6:13 Board Certified Radiologist. This report was verified electronically.
[2017-04-25] MEDS: guaiFENesin E.R. 600 MG TAB PO SCH ×2 (08:17→20:40)
[2017-04-25] MEDS: METOPROLOL TARTRATE 25 MG TAB PO SCH ×2 (08:17→20:40)
[2017-04-25] MEDS: SODIUM CHLORIDE 0.9% FLUSH 5 ML FLUSH IV FLUSH SCH ×2 (08:18→20:40)
[2017-04-25] MEDS: MORPHINE SULFATE 15 MG CONTROLLED RELEASE TAB PO SCH ×2 (08:18→21:45)
[2017-04-25] MEDS: MUPIROCIN 2% OINT 1 APPLIC/GM SYR EACH NARE SCH (08:18)
[2017-04-25] MEDS: BUDESONIDE-FORMOTEROL 160/4.5 MCG INHALER INH SCH ×2 (08:18→20:40)
--- NOTE | 2017-04-25 10:47 | HHI.PR ---
Subjective Remarks Follow-up for pneumonia, empyema, decortication Patient stated that current pain regimen is controlling his pain. He stated that nurse at night did not give his narcosis why he was in pain last night but he is happy with current regimen. Deny any shortness of breathing or cough. His is at the bedside. Objective Vitals Vital Signs Date Time Temp Pulse Resp B/P Pulse Ox O2 Delivery O2 Flow Rate FiO2 04/25/17 10:33 98 04/25/17 09:41 98 04/25/17 09:27 18 04/25/17 08:50 97 04/25/17 07:38 99 04/25/17 07:38 97.6 99 18 116/77 93 04/25/17 06:00 100 04/25/17 05:00 100 04/25/17 04:55 95 04/25/17 04:00 103 04/25/17 03:45 98.7 108 18 110/68 95 04/25/17 03:08 97 04/25/17 03:00 98 04/25/17 02:00 97 04/25/17 01:00 100 04/25/17 00:00 100 04/24/17 23:15 97.5 106 22 118/73 94 04/24/17 23:15 94 Room Air 04/24/17 23:00 101 04/24/17 22:00 112 04/24/17 21:46 94 21 04/24/17 21:00 110 04/24/17 21:00 94 Room Air 04/24/17 21:00 98.9 113 25 125/85 94 04/24/17 20:00 108 04/24/17 19:00 103 04/24/17 18:12 18 04/24/17 18:11 109 04/24/17 17:29 107 04/24/17 16:11 103 04/24/17 15:36 100 04/24/17 15:36 93 Room Air 04/24/17 15:36 97.4 100 18 117/80 93 04/24/17 14:30 96 04/24/17 13:00 97 04/24/17 12:01 95 04/24/17 11:42 97 04/24/17 11:42 97.4 93 18 121/78 93 04/24/17 11:42 93 Room Air I/O 04/24/17 04/24/17 04/24/17 04/25/17 04/25/17 04/25/17 06:59 14:59 22:59 06:59 14:59 22:59 Intake Total 240 ml 640 ml 680 ml Output Total 760 ml 20 ml Balance -520 ml 640 ml 660 ml Intake Oral 240 ml 640 ml 480 ml IV Total 200 ml Output Urine Total 700 ml Drainage Total 60 ml 20 ml # Voids 4 4 # Bowel Movements 0 1 Result Diagram: 04/24/17 0604/24/17 06 Objective Remarks GENERAL: In no acute distress. CARDIOVASCULAR: Regular rate and rhythm without murmurs, gallops, or rubs. RESPIRATORY: Right lung clear. Left sided lungs some crackles and decreased breath sounds. Chest tube in place. Serosanguineous. No accessory muscle use. GASTROINTESTINAL: Abdomen soft, non-tender, nondistended. MUSCULOSKELETAL: No cyanosis, or edema. BACK: Nontender without obvious deformity. No CVA tenderness. Medications and IVs Current Medications Aspirin (Aspirin) 325 mg ONCE ONCE PO Last administered on 04/14/17 19:43; Start 04/14/17 at 19:30; Stop 04/14/17 at 19:31; Status DC Hydromorphone HCl (Dilaudid Pf Inj) 0.5 mg ONCE ONCE IV PUSH Last administered on 04/14/17 19:43; Start 04/14/17 at 19:30; Stop 04/14/17 at 19:31; Status DC Ondansetron HCl 4 mg 4 mg ONCE ONCE IV PUSH Last administered on 04/14/17 19: 43; Start 04/14/17 at 19:30; Stop 04/14/17 at 19:31; Status DC Ceftriaxone Sodium 1000 mg/ Sodium Chloride 100 ml @ 200 mls/hr ONCE ONCE IV Last administered on 04/14/17 21:31; Start 04/14/17 at 20:00; Stop 04/14/17 at 20: 29; Status DC Azithromycin 500 mg/Sodium Chloride 250 ml @ 250 mls/hr ONCE ONCE IV Last administered on 04/14/17 21:54; Start 04/14/17 at 20:00; Stop 04/14/17 at 20:59; Status DC Calcium Gluconate/ Dextrose (Calcium Gluconate Inj/D5W 100 ml Inj) 110 ml @ 110 mls/hr ONCE ONCE IV Last administered on 04/14/17 22:56; Start 04/14/17 at 20:30; Stop 04/14/17 at 21:29; Status DC Potassium Chloride (KCl) 30 meq ONCE ONCE PO Last administered on 04/14/17 21: 30; Start 04/14/17 at 21:00; Stop 04/14/17 at 21:04; Status DC Iohexol 75 ml 75 ml STK-MED ONCE IV Last administered on 04/14/17 21:24; Start 04/14/17 at 21:24; Stop 04/14/17 at 21:25; Status DC Ceftriaxone Sodium 1000 mg/ Sodium Chloride 100 ml @ 200 mls/hr Q24H IV ; Start 04/15/17 at 22:00; Stop 04/15/17 at 22:00; Status DC Azithromycin/ Sodium Chloride (Zithromax Inj/ NS 250 ml Inj) 250 ml @ 250 mls/ hr Q24H IV Last administered on 04/22/17 21:00; Start 04/15/17 at 21:00; Stop 04/23/17 at 16:21; Status DC Albuterol/ Ipratropium (Duoneb Neb) 1 ampule Q2HR NEB PRN NEB SOB/WHEEZING; Start 04/14/17 at 22:15; Stop 04/23/17 at 14:06; Status DC Guaifenesin (Mucinex Er) 600 mg BID PO Last administered on 04/25/17 08:17; Start 04/15/17 at 09:00 Budesonide/ Formoterol Fumarate (Symbicort 160-4.5 Inh) 2 puff Q12HR INH Last administered on 04/16/17 12:01; Start 04/15/17 at 09:00; Stop 04/17/17 at 20:26; Status DC Sodium Chloride (NS Flush) 2 ml UNSCH PRN IV FLUSH FLUSH AFTER USING IV ACCESS ; Start 04/14/17 at 22:15; Stop 04/22/17 at 20:18; Status DC Sodium Chloride (NS Flush) 2 ml BID IV FLUSH Last administered on 04/21/17 22: 02; Start 04/15/17 at 09:00; Stop 04/22/17 at 20:18; Status DC Ondansetron HCl (Zofran Inj) 4 mg Q6H PRN IVP NAUSEA OR VOMITING; Start at 22:15; Stop 04/22/17 at 20:18; Status DC Acetaminophen (Tylenol) 650 mg Q6H PRN PO FEVER/PAIN SCALE 1 TO 2; Start at 22:15 Acetaminophen/ Hydrocodone Bitart ([place] 5-325 Mg) 1 tab Q4H PRN PO PAIN SCALE 3 TO 5 Last administered on 04/23/17 15:36; Start 04/14/17 at 22:15 Morphine Sulfate (Morphine Inj) 2 mg Q3H PRN IV BREAKTHROUGH PAIN Last administered on 04/16/17 22:10; Start 04/14/17 at 22:15; Stop 04/22/17 at 16:43; Status DC Senna/Docusate Sodium (Susan-Colace) 1 tab BID PO Last administered on 09:54; Start 04/15/17 at 09:00; Stop 04/22/17 at 20:14; Status DC Magnesium Hydroxide (Milk Of Magnesia Liq) 30 ml Q12H PRN PO MILD - MODERATE CONSTIPATION; Start 04/14/17 at 22:15; Stop 04/22/17 at 19:44; Status DC Sennosides (Senokot) 17.2 mg Q12H PRN PO MODERATE - SEVERE CONSTIPATION; Start 04/14/17 at 22:15; Stop 04/22/17 at 20:16; Status DC Bisacodyl (Dulcolax Supp) 10 mg DAILY PRN RECTAL SEVERE CONSITIPATION; Start at 22:15; Stop 04/22/17 at 20:12; Status DC Lactulose (Lactulose Liq) 30 ml DAILY PRN PO SEVERE CONSITIPATION; Start at 22:15; Stop 04/22/17 at 20:13; Status DC Lidocaine HCl (Xylocaine-Mpf 1% Inj) 30 ml STK-MED ONCE .ROUTE Last administered on 04/15/17 10:07; Start 04/15/17 at 10:07; Stop 04/15/17 at 10:08; Status DC Fentanyl Citrate (fentaNYL INJ) 250 mcg STK-MED ONCE .ROUTE Last administered on 04/15/17 10:11; Start 04/15/17 at 10:11; Stop 04/15/17 at 10:12; Status DC Acetaminophen/ Hydrocodone Bitart ([place] 10-325 Mg) 1 tab Q4H PRN PO PAIN SCALE 6 TO 10 Last administered on 04/25/17 03:52; Start 04/15/17 at 13:00 Heparin Sodium (Porcine) (Heparin Inj) 5,000 units Q8HR SQ Last administered on 04/21/17 13:45; Start 04/15/17 at 14:00; Status Hold Methylprednisolone Sodium Succinate (SoluMEDROL INJ) 40 mg Q6HR IV Last administered on 04/16/17 17:29; Start 04/16/17 at 00:00; Stop 04/16/17 at 20:05; Status DC Albuterol/ Ipratropium (Duoneb Neb) 1 ampule Q4HR NEB NEB Last administered on 04/19/17 16:22; Start 04/15/17 at 20:00; Stop 04/19/17 at 20:00; Status DC Budesonide/ Formoterol Fumarate 2 puff 2 puff Q12HR INH Last administered on 08:18; Start 04/15/17 at 21:00 Cefepime HCl 2000 mg/Sodium Chloride 100 ml @ 200 mls/hr Q8H IV Last administered on 04/23/17 11:48; Start 04/15/17 at 21:00; Stop 04/23/17 at 16:21 ; Status DC Potassium Chloride/Dextrose/ Sod Cl (D5-1/2 NS + KCl 20 Meq Inj) 1,000 ml @ 84 mls/hr [id number] IV Last administered on 04/23/17 08:43; Start 04/15/17 at 20:00 ; Stop 04/23/17 at 14:06; Status DC Potassium Chloride 60 meq 60 meq ONCE ONCE PO Last administered on 04/16/17 09 :11; Start 04/16/17 at 08:15; Stop 04/16/17 at 08:16; Status DC Potassium Chloride (KCl 10 Meq Premix Inj) 100 ml @ 100 mls/hr BOLUS ONCE IV Last administered on 04/16/17 09:11; Start 04/16/17 at 08:15; Stop 04/16/17 at 09: 14; Status DC Methylprednisolone Sodium Succinate 40 mg 40 mg Q8HR IV Last administered on 06:00; Start 04/17/17 at 06:00; Stop 04/18/17 at 12:34; Status DC Clindamycin Phosphate 900 mg/ Sodium Chloride 106 ml @ 212 mls/hr Q6H IV Last administered on 04/23/17 15:36; Start 04/17/17 at 22:00; Stop 04/23/17 at 16:22 ; Status DC Sodium Phosphate/ Sodium Chloride (Sodium Phosphate Inj/NS Inj) 155 ml @ 38.75 mls/ hr ONCE ONCE IV Last administered on 04/17/17 22:11; Start 04/17/17 at 22: 00; Stop 04/18/17 at 01:59; Status DC Prednisone 10 mg 10 mg DAILY PO ; Start 04/19/17 at 09:00; Stop 04/19/17 at 09: 00; Status DC Vancomycin HCl 1000 mg/Sodium Chloride 250 ml @ 250 mls/hr Q12H IV Last administered on 04/23/17 08:39; Start 04/19/17 at 20:00; Stop 04/23/17 at 16:22 ; Status DC Cefazolin Sodium/ Dextrose (Ancef 2 Gm Premix) 50 ml @ 100 mls/hr [employer] IV ; Start 04/20/17 at 11:45; Stop 04/24/17 at 11:44; Status DC Metoprolol Tartrate (Lopressor) 12.5 mg [employer] PO ; Start 04/20/17 at 11:45; Stop 04/23/17 at 14:06; Status DC Mupirocin (Bactroban Nasal 2% Oint) 1 applic BID EACH NARE Last administered on 04/25/17 08:18; Start 04/20/17 at 11:45; Stop 04/25/17 at 11:44 Chlorhexidine Gluconate 1 applic 1 applic [employer] TOPICAL Last administered on 04/22/17 14:35; Start 04/20/17 at 11:45; Stop 04/23/17 at 14:07; Status DC Insulin Human Regular 100 units/ Sodium Chloride 101 ml @ 0 mls/hr [employer] IV ; Start 04/20/17 at 11:45; Stop 04/23/17 at 14:07; Status DC Lactated Ringer's (Lr 1000 ml Inj) 1,000 ml @ 30 mls/hr Q24H PRN IV SEE LABEL COMMENTS; Start 04/22/17 at 04:00; Stop 04/25/17 at 03:59; Status DC Povidone Iodine (Betadine 5% Antisepsis Kit) 1 applic [employer] PRN EACH NARE SEE LABEL COMMENTS; Start 04/22/17 at 04:00; Stop 04/25/17 at 03:59; Status DC Chlorhexidine Gluconate (Chlorhexidine 2% Cloth) 3 pack [employer] PRN TOPICAL SEE LABEL COMMENTS; Start 04/22/17 at 04:00; Stop 04/23/17 at 14:07; Status DC Bupivacaine HCl (Marcaine Pf 0.5% Inj) 30 ml STK-MED ONCE .ROUTE Last administered on 04/22/17 16:30; Start 04/22/17 at 14:53; Stop 04/23/17 at 14:07 ; Status DC Albuterol Sulfate (Albuterol Neb) 2.5 mg Q6HR NEB NEB Last administered on 10:27; Start 04/22/17 at 22:00 Albuterol Sulfate (Albuterol Neb) 2.5 mg Q2HR NEB PRN NEB WHEEZING; Start 04/22 at 16:45 IV Flush (NS Flush) 2 ml BID IV FLUSH Last administered on 04/25/17 08:18; Start 04/22/17 at 21:00 IV Flush (NS Flush) 2 ml UNSCH PRN IV FLUSH FLUSH AFTER USING IV ACCESS; Start 04/22/17 at 16:45 Miscellaneous Information (Post-op Orders (for Pharmacy)) STAT ONCE OTHER ; Start 04/22/17 at 16:45; Stop 04/22/17 at 20:08; Status DC Pantoprazole Sodium (Protonix) 40 mg HS PO Last administered on 04/24/17 21:34 ; Start 04/22/17 at 21:00 Ondansetron HCl (Zofran Inj) 4 mg Q6H PRN IV PUSH NAUSEA OR VOMITING; Start at 16:45 Docusate Calcium (Surfak) 240 mg HS PO Last administered on 04/24/17 21:35; Start 04/22/17 at 21:00 Magnesium Hydroxide (Milk Of Magnesia Liq) 30 ml DAILY PRN PO CONSTIPATION; Start 04/22/17 at 16:45 Acetaminophen (Tylenol) 650 mg Q4H PRN PO TEMPERATURE > 101 F; Start 04/22/17 at 16:45 Insulin Aspart (NovoLOG SUPPLEMENTAL SCALE) Q6HR SQ ; Start 04/22/17 at 18:00; Stop 04/23/17 at 14:07; Status DC Miscellaneous Information 1 ONCE ONCE OTHER ; Start 04/22/17 at 16:45; Stop at 16:46; Status UNV Dextrose (D50w (Vial) Inj) 50 ml UNSCH PRN IV HYPOGLYCEMIA-SEE COMMENTS; Start 04/22/17 at 16:45; Stop 04/23/17 at 14:07; Status DC Glucagon (Glucagon Inj) 1 mg UNSCH PRN IV HYPOGLYCEMIA-SEE COMMENTS; Start at 16:45; Stop 04/23/17 at 14:06; Status DC Oxycodone/ Acetaminophen (Percocet 5-325 Mg) 1 tab Q3H PRN PO PAIN SCALE 3 TO 5; Start 04/22/17 at 16:45; Status UNV Ketorolac Tromethamine (Toradol Inj) 15 mg Q6H IV PUSH Last administered on 11:48; Start 04/22/17 at 18:00; Stop 04/23/17 at 12:01; Status DC Fentanyl Citrate (fentaNYL INJ) 500 mcg STK-MED ONCE .ROUTE ; Start 04/22/17 at 17:01; Stop 04/22/17 at 17:02; Status DC Morphine Sulfate (*morphine INJ PERIprocedure ONLY) 8 mg STK-MED ONCE .ROUTE Last administered on 04/22/17 17:02; Start 04/22/17 at 17:02; Stop 04/23/17 at 14:06; Status DC Meperidine HCl (*DEMEROL INJ PERIprocedural ONLY) 25 mg STK-MED ONCE .ROUTE Last administered on 04/22/17 17:22; Start 04/22/17 at 17:22; Stop 04/23/17 at 14:06; Status DC Miscellaneous Information ALL NURSING DEPARTME... UNSCH PRN .XX SEE LABEL COMMENTS; Start 04/22/17 at 16:49; Stop 04/23/17 at 14:06; Status DC Morphine Sulfate (*morphine INJ PERIprocedure ONLY) 8 mg STK-MED ONCE .ROUTE Last administered on 04/22/17 19:01; Start 04/22/17 at 19:01; Stop 04/23/17 at 14:06; Status DC Budesonide/ Formoterol Fumarate 2 puff 2 puff Q12HR INH ; Start 04/22/17 at 21: 00; Status UNV Ampicillin Sodium/ Sulbactam Sodium/ Sodium Chloride (Unasyn Inj/NS Inj) 100 ml @ 200 mls/hr Q6H IV Last administered on 04/25/17 06:09; Start 04/23/17 at 18 :00 Metoprolol Tartrate (Lopressor) 25 mg BID PO Last administered on 04/25/17 08: 17; Start 04/23/17 at 21:00 Metoprolol Tartrate (Lopressor) 25 mg NOW ONCE PO Last administered on 18:13; Start 04/23/17 at 17:30; Stop 04/23/17 at 17:31; Status DC Morphine Sulfate (Oramorph Sr) 15 mg Q12HR PO Last administered on 04/25/17 08 :18; Start 04/24/17 at 13:00 A/P Problem List: (1) Sepsis ICD Code: A41.9 Status: Acute (2) PNA (pneumonia) ICD Code: J18.9 Status: Acute (3) Pleural effusion ICD Code: J90 Status: Acute (4) Hypocalcemia ICD Code: E83.51 Status: Acute (5) Hypokalemia ICD Code: E87.6 Status: Acute Assessment and Plan This is a 47-year-old male with no significant PMH severe SOB and left-sided rib pain - Sepsis: HR 120's, RR 24, WBC 15, Source-presumed PNA/empyema. - s/p CT guided thoracentesis (u/s guided was unsuccessful). - cardiothoracic and pulmonary following. -See treatment as below. -Left basilar pneumonia complicated by empyema: -CXR w/ basilar atelectasis possibly PNA, CTA negative for PE, moderate pleural effusion. DuoNeb prn. - s/p thoracentesis. White blood cells 29506, RBCs 4000. Pleural LDH 824 - Follow up fluid cultures, continue negative to date -Status post Left thoracoscopic exploration for loculated pleural effusion, drainage of effusion, decortication, pleural biopsies on [id number] - Previously patient was on Azithromycin, Cefepime and Clindamycin. Infectious disease consulted. Appreciate consult. Per infectious disease azithromycin cefepime and clindamycin was discontinued yesterday. Patient now on Ancef on 04/23. -Pain controlled with Oramorph and [place] for breakthrough pain. -Chest tube will be placed at water seal today. - Hypokalemia: Currently resolved after replacement. - Continue to monitor and replace as necessary. - Hypocalcemia: Ca 5.9, corrected 6.7. Asymptomatic. S/p replacement, resolved. Full code. Heparin SQ. Problem Qualifiers (1) Sepsis: Qualified Code: A41.9 - Sepsis, due to unspecified organism Taina Gudino MD Apr 25, 2017 10:47
--- NOTE | 2017-04-25 11:21 | PD.CAR.PN ---
CVT Progress Note Subjective/Hospital Course: 47-year-old male with no significant PMH who was brought to the ER by EMS secondary to complaints of severe SOB and left-sided rib pain while driving on the highway. Patient states he was attempting to come to the ER, however pain was so severe he had to assembler for puller over hand and call EMS. No previous history of similar symptoms in the past. States he has been "feeling sick" x1 wk w/ subjective fever, chills and productive cough w/ yellow-mackenzie colored sputum. Did not seek medical attention for symptoms, not on antibiotics. Does report previous exposure to Poison [place], seen by Senior Software Project Manager and started on topical steroids with improvement. States symptoms started shortly after rash. On arrival, BP 145/96, HR 120, O2 sat 91% on RA, Afebrile. WBC 15.1. K+ 2.9. Ca 5.9. ABG unremarkable. CXR w/ left basal airspace disease, possibly pneumonia. CTA Pulm w/ no evidence of central emboli, moderate large effusion and compressive atelectasis on left w/ moderate coronary calcifications. S/p Rocephin/Zithro in ER. Pt denies h/o pleural effusion, no h/o CHF. CXR and chest ct evaluated by Dr Adams CXR improved after thoracentesis , plan is to re-eval with new CT chest today 04/20/17 Patient underwent repeat chest CT which shows reaccumulation of small to moderate left pleural effusion with adjacent atelectasis as well as bilateral infiltrates. c/o productive cough and feels more short of breath. 04/22 Left thoracoscopic exploration for loculated pleural effusion, drainage of effusion, decortication, pleural biopsy/ drained 500cc serosang drainage 04/23 weaning off 02 chest tube x 2 to wall suction drained 110cc/ 12 hrs pulm toileting , nebs , ezpap acapella 04/24 chest tube drained 60cc/ 12 hrs sero sang drainage no air leak, will place to water seal in am continue antibiotics 04/25 cxr noted still has some left mid and lower lung consolidation chest tube to water seal eval for removal in am Objective: GENERAL: SKIN: Warm and dry. HEAD: Normocephalic. EYES: No scleral icterus. No injection or drainage. NECK: Supple, trachea midline. No JVD or lymphadenopathy. CARDIOVASCULAR: Regular rate and rhythm without murmurs, gallops, or rubs. RESPIRATORY: chest tube x 2 intact , now to water seal diminished left Breath sounds equal bilaterally. No accessory muscle use. GASTROINTESTINAL: Abdomen soft, non-tender, nondistended. MUSCULOSKELETAL: No cyanosis, or edema. BACK: Nontender without obvious deformity. No CVA tenderness. Vital Signs Date Time Temp Pulse Resp B/P Pulse Ox O2 Delivery O2 Flow Rate FiO2 04/25/17 10:33 98 04/25/17 09:41 98 04/25/17 09:27 18 04/25/17 08:50 97 04/25/17 07:38 99 04/25/17 07:38 97.6 99 18 116/77 93 04/25/17 06:00 100 04/25/17 05:00 100 04/25/17 04:55 95 04/25/17 04:00 103 04/25/17 03:45 98.7 108 18 110/68 95 04/25/17 03:08 97 04/25/17 03:00 98 04/25/17 02:00 97 04/25/17 01:00 100 04/25/17 00:00 100 04/24/17 23:15 97.5 106 22 118/73 94 04/24/17 23:15 94 Room Air 04/24/17 23:00 101 04/24/17 22:00 112 04/24/17 21:46 94 21 04/24/17 21:00 110 04/24/17 21:00 94 Room Air 04/24/17 21:00 98.9 113 25 125/85 94 04/24/17 20:00 108 04/24/17 19:00 103 04/24/17 18:12 18 04/24/17 18:11 109 04/24/17 17:29 107 04/24/17 16:11 103 04/24/17 15:36 100 04/24/17 15:36 93 Room Air 04/24/17 15:36 97.4 100 18 117/80 93 04/24/17 14:30 96 04/24/17 13:00 97 04/24/17 12:01 95 04/24/17 11:42 97 04/24/17 11:42 97.4 93 18 121/78 93 04/24/17 11:42 93 Room Air Result Diagram: 04/24/17 0600 04/24/17 0600 Telemetry: NSR (1) PNA (pneumonia) Plan: ABX per ID (2) Pleural effusion Plan: s/p thoracentesis / exudative by light's criteria no growth in pleural fluid or blood cultures continue IV antibiotics/ re-eval for CT chest , if no improvement then consider further need for left VATS decortication (3) Left thoracoscopic exploration for loculated pleural effusion, drainage of effusion, decortication, pleural biopsie Plan: chest tubes to water seal pulm toileting OOB, ambulate pleural cultures neg to date path fibrin, granulation tissue Mely Alejo Apr 25, 2017 11:21
--- NOTE | 2017-04-25 16:03 | HHI.IDPN ---
Subjective Subjective Remarks is a 47 y/o CM with history significant for extensive travel history most recently [facility] (february 2017)and [place]. Patient reports that he then stubbed his toe and went to ED but no infection or antibiotics then. He then reports going to help his family in [place] with clearing a [place] home. This was an old home and he additionally helped clear large trees by cutting and moving them. He reports getting some skin reaction ? poison ramsey and also burned some poison rasmey leaves as debris. He was treated with steroids by a local doctor and was doing ok but not improved. He then came to his PCP in [facility] who prescribed him antibiotics. He also reports travel to [facility] in the interim. He returned from [facility] [place] and developed some cough, fevers and chills with some grayish sputum. Patient presented to the ED due to worsening above symptoms. CBC with leucocytosis on admission as well as tachycardia with lung as source meets criteria for sepsis. A CT was done in the emergency department which showed a moderate sized effusion. He underwent a thoracentesis which removed about 300 cc of dark fluid. Pleural fluid was exudative with 16,000 WBCs. Glucose was 38 from the pleural fluid. Micro pleural fluid has no growth to date. Path did show some neutrophils, a few reactive mesothelial cells consistent with empyema. No malignancy. The patient also stated when he was in [place] two years ago he lived in a house that had significant mold. He was in [place] 2 years ago he was analysis had significant mold. Travel history: Lived in [place] (mother was [place]) Was part of the wars ([place] 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 Traveled to [facility], [place], [place], [place]. ID consulted for evaluation and M'ment of Empyema (culture negative). Of note patient was on antibiotics prior to admission also has risk factors for Fungi and atypical infections. Overnight events reviewed No fevers No rash No diarrhea Sitting in a chair Complains of chest pain. Antibiotics Unasyn IV Lines Line sites with no e.o infection. Past Medical History reviewed Allergies: Coded Allergies: acetaminophen (Unverified Allergy, Severe, HEADACHE; NAUSEA/VOMITING, 04/23) oxycodone (Unverified Allergy, Severe, HEADACHE; NAUSEA/VOMITING, 04/23/17) Objective . Vital Signs Date Time Temp Pulse Resp B/P Pulse Ox O2 Delivery O2 Flow Rate FiO2 04/25/17 15:51 107 04/25/17 15:51 97.8 107 18 114/83 93 04/25/17 13:49 97 04/25/17 13:39 18 04/25/17 12:46 99 04/25/17 11:36 97.6 88 20 122/73 93 04/25/17 11:36 88 04/25/17 10:36 102 04/25/17 10:33 98 04/25/17 09:41 98 04/25/17 09:27 18 04/25/17 08:50 97 04/25/17 07:38 99 04/25/17 07:38 97.6 99 18 116/77 93 04/25/17 06:00 100 04/25/17 05:00 100 04/25/17 04:55 95 04/25/17 04:00 103 04/25/17 03:45 98.7 108 18 110/68 95 04/25/17 03:08 97 04/25/17 03:00 98 04/25/17 02:00 97 04/25/17 01:00 100 04/25/17 00:00 100 04/24/17 23:15 97.5 106 22 118/73 94 04/24/17 23:15 94 Room Air 04/24/17 23:00 101 04/24/17 22:00 112 04/24/17 21:46 94 21 04/24/17 21:00 110 04/24/17 21:00 94 Room Air 04/24/17 21:00 98.9 113 25 125/85 94 04/24/17 20:00 108 04/24/17 19:00 103 04/24/17 18:11 109 04/24/17 17:29 107 04/24/17 16:11 103 04/24/17 04/24/17 04/25/17 15:00 23:00 07:00 Intake Total 640 ml 680 ml Output Total 20 ml Balance 640 ml 660 ml Intake Oral 640 ml 480 ml IV Total 200 ml Drainage Total 20 ml # Voids 4 4 # Bowel Movements 0 1 . Laboratory Tests Test 04/24/17 06:00 White Blood Count 16.9 TH/MM3 Red Blood Count 4.02 MIL/MM3 Hemoglobin 11.5 GM/DL Hematocrit 33.6 % Mean Corpuscular Volume 83.6 FL Mean Corpuscular Hemoglobin 28.6 PG Mean Corpuscular Hemoglobin 34.2 % Concent Red Cell Distribution Width 14.5 % Platelet Count 499 TH/MM3 Mean Platelet Volume 8.6 FL Laboratory Tests Test 04/24/17 06:00 Sodium Level 132 MEQ/L Potassium Level 3.8 MEQ/L Chloride Level 95 MEQ/L Carbon Dioxide Level 30.6 MEQ/L Anion Gap 6 MEQ/L Blood Urea Nitrogen 8 MG/DL Creatinine 0.58 MG/DL Estimat Glomerular Filtration 149 ML/MIN Rate Random Glucose 91 MG/DL Calcium Level 8.1 MG/DL Imaging Last Impressions Chest X-Ray 04/25/17 0600 Signed Impressions: Service Date/Time: April 05:05 - CONCLUSION: Persistent left mid and lower lung consolidation. Jaylen Cerrato MD Chest CT 04/19/17 0000 Signed Impressions: Service Date/Time: Wednesday, April 19, 2017 15:41 - CONCLUSION: 1. Reaccumulation of a small to moderate-sized left pleural effusion. 2. Persistent dense consolidation of the left lower lobe. 3. New patchy air space disease in the right apex and right lower lobe. Paul Spence MD Thoracentesis Ultrasound 04/15/17 0000 Signed Impressions: Service Date/Time: Saturday, April 15, 2017 09:17 - CONCLUSION: Unsuccessful ultrasound guided thoracentesis. Lobo Dominguez MD FACR Thoracentesis 04/15/17 0000 Signed Impressions: Service Date/Time: Saturday, April 15, 2017 09:57 - CONCLUSION: Uncomplicated CT-guided left thoracentesis. Lobo Dominguez MD FACR CT Angiography 04/14/17 1918 Signed Impressions: Service Date/Time: Friday, April 14, 2017 21:22 - CONCLUSION: 1. Study limited by motion artifact and contrast bolus but no large central emboli are identified. 2. Moderate left effusion and compressive atelectasis posteriorly in the left lung. Moderate coronary calcifications. Rowdy Mckinley MD Physical Exam GENERAL: This is a well-nourished, well-developed patient, in no apparent distress. SKIN: No rashes, ecchymoses or lesions. Cool and dry. HEAD: Atraumatic. Normocephalic. No temporal or scalp tenderness. EYES: Pupils equal round and reactive. Extraocular motions intact. No scleral icterus. No injection or drainage. ENT: Nose without bleeding, purulent drainage or septal hematoma. Throat without erythema, tonsillar hypertrophy or exudate. Uvula midline. Airway patent. NECK: Trachea midline. Supple, nontender, no meningeal signs. CARDIOVASCULAR: Regular rate and rhythm without murmurs, gallops, or rubs. RESPIRATORY: Clear to auscultation. Breath sounds decreased left side. Chest tube in place. Surgical scar ok. GASTROINTESTINAL: Abdomen soft, non-tender, nondistended. MUSCULOSKELETAL: Extremities without clubbing, cyanosis, or edema. No joint tenderness, effusion, or edema noted. No calf tenderness. Negative Homans sign bilaterally. NEUROLOGICAL: Awake and alert. Grossly non focal Psych: cooperative IV line sites with no e.o infection. Assessment & Plan Remarks Empyema DDx: Bacterial (Of note patient was on antibiotics prior to admission) Fungal: also has risk factors for Fungi and atypical infections. Pneumonia few weeks back based on history of travel to [facility] [place] Significant travel history worldwide Significant exposure history in [place] as risk factors for Fungi. Recs: Continue Unasyn IV (this has good anaerobic coverage for aspiration related empyema) Repeat CBC in am. Cultures normal resp abena which is either c/w aspiration PNA, partially treated pneumonia or atypical infections (like fungal) Garret Jain: CTS plans on CT clamp n removal followed by repeat imaging. If CTS clears pt for discharge ok to discharge pt on Augmentin oral for 4 weeks and follow up with Dr.Reba Cisneros in 2 weeks. If CTS plans on further surgery will need to wait on repeat blood cultures for new ID recommendations. Intra op path c/w Empyema. follow cultures Follow clinically. Case dw patient and RN Garret patient about above plan.Informed him of negative HIV and Hepatitis profile. I will be OOT from 04/26/17 to 04/30/17. to cover for me prn. Susu Hickey MD Apr 25, 2017 16:03
--- NOTE | 2017-04-25 17:53 | HHI.PR ---
Subjective Remarks Went for Decortication on left. Chest tube still in. Pleural fluid shows no growth . No fever. Chest pain is less. Objective Vital Signs Date Time Temp Pulse Resp B/P Pulse Ox O2 Delivery O2 Flow Rate FiO2 04/25/17 16:46 101 04/25/17 15:51 107 04/25/17 15:51 97.8 107 18 114/83 93 04/25/17 13:49 97 04/25/17 13:39 18 04/25/17 12:46 99 04/25/17 11:36 97.6 88 20 122/73 93 04/25/17 11:36 88 04/25/17 10:36 102 04/25/17 10:33 98 04/25/17 09:41 98 04/25/17 09:27 18 04/25/17 08:50 97 04/25/17 07:38 99 04/25/17 07:38 97.6 99 18 116/77 93 04/25/17 06:00 100 04/25/17 05:00 100 04/25/17 04:55 95 04/25/17 04:00 103 04/25/17 03:45 98.7 108 18 110/68 95 04/25/17 03:08 97 04/25/17 03:00 98 04/25/17 02:00 97 04/25/17 01:00 100 04/25/17 00:00 100 04/24/17 23:15 97.5 106 22 118/73 94 04/24/17 23:15 94 Room Air 04/24/17 23:00 101 04/24/17 22:00 112 04/24/17 21:46 94 21 04/24/17 21:00 110 04/24/17 21:00 94 Room Air 04/24/17 21:00 98.9 113 25 125/85 94 04/24/17 20:00 108 04/24/17 19:00 103 04/24/17 18:11 109 I/O 04/24/17 04/24/17 04/24/17 04/25/17 04/25/17 04/25/17 07:00 15:00 23:00 07:00 15:00 23:00 Intake Total 240 ml 640 ml 680 ml Output Total 760 ml 20 ml Balance -520 ml 640 ml 660 ml Intake Oral 240 ml 640 ml 480 ml IV Total 200 ml Output Urine Total 700 ml Drainage Total 60 ml 20 ml # Voids 4 4 # Bowel Movements 0 1 Result Diagram: 04/24/17 0600 04/24/17 0600 Objective Remarks GENERAL: This is a well-built middle-aged white male who is alert HEENT: Head normocephalic. Pupils are reactive and equal. Throat is clear. Nasal mucosa is clear. NECK: Supple. No bruits or lymphadenopathy or thyromegaly. CHEST: Distant breath sounds over the left chest . HEART: Heart sounds are regular, S1-S2. No murmur. No S3 gallop. ABDOMEN: The abdomen is soft, protuberant. No masses or organomegaly or tenderness. Bowel sounds are active. EXTREMITIES: No edema. No calf tenderness. Reflexes are 1+ with no gross deficits. The patient is alert and oriented. Skin was warm and dry. Assessment and Plan Assessment and Plan IMPRESSION 1. Left basilar pneumonia with left pleural effusion.Poss Empyema 2. Asthmatic bronchitis. 3. Pleuritic chest pain. 4. Hypokalemia. 5. Sepsis. Plan : 1. Continue Unasyn per ID 2. O2 PRN 2 L 3. Chest tube to drain 4. Nebs qid , duoneb 5. Rpt CXR in am 6. Symbicort 160/4.5 mcg , 2 puffs bid 7. labs in am 8. PFT when stable Fabricio Lambert MD Apr 25, 2017 17:53
[2017-04-25] MEDS: DOCUSATE CALCIUM 240 MG CAP PO SCH (20:40)
[2017-04-25] MEDS: PANTOPRAZOLE SOD 40 MG DELAYED RELEASE TAB PO SCH (20:40)
[2017-04-26] VITALS (28 sets, daily range): BP systolic 117–125; BP diastolic 64–86; PULSE 82–109; RESP 18–20; TEMP 97.7–99; O2SAT 93–95
[2017-04-26] MEDS: ACETAMINOPHEN/HYDROcodone 325 MG/10 MG TAB PO PRN ×6 (00:49→23:20)
[2017-04-26] MEDS: RESP: ALBUTEROL 2.5 MG/3 ML NEB (SCH) NEB ×4 (03:19→20:12)
[2017-04-26] MEDS: AMPICILLIN-SULBACTAM INJ 1,500 MG in SODIUM CHLORIDE 0.9% INJ 100 ML IV SCH ×4 (05:08→23:20)
[2017-04-26 08:08] LABS: AUTOMATED NEUTROPHIL # 7.9 TH/MM3 (1.8-7.7); BASOPHIL # 0.2 TH/MM3 (0-0.2); BASOPHIL % 1.3 % (0.0-2.0); EOSINOPHIL # 0.5 TH/MM3 (0-0.4); HEMATOCRIT 34.6 % (39.0-51.0); LYMPH % 19.6 % (9.0-44.0); LYMPHOCYTE # 2.4 TH/MM3 (1.0-4.8); MEAN CELL VOLUME 85.1 FL (80.0-100.0); MEAN CORPUSCULAR HEMOGLOBIN 28.4 PG (27.0-34.0); MEAN CORPUSCULAR HGB CONC 33.4 % (32.0-36.0); MONO % 10.9 % (0.0-8.0); NEUT % 64.2 % (16.0-70.0); PLATELET COUNT 529 TH/MM3 (150-450); RED BLOOD COUNT 4.06 MIL/MM3 (4.50-5.90); RED CELL DISTRIBUTION WIDTH 14.4 % (11.6-17.2); WHITE BLOOD COUNT 12.3 TH/MM3 (4.0-11.0)
[2017-04-26 08:12] LABS: HEMO FLAGS AUTO DIFF
[2017-04-26 08:54] LABS: BICARBONATE 30.4 MEQ/L (21.0-32.0); POTASSIUM 4.2 MEQ/L (3.5-5.1)
[2017-04-26] MEDS ORDERED: HYDR-3516 PO (09:11)
[2017-04-26] MEDS ORDERED: MORP1TAB24 PO (09:11)
[2017-04-26] MEDS: guaiFENesin E.R. 600 MG TAB PO SCH ×2 (09:19→21:14)
[2017-04-26] MEDS: METOPROLOL TARTRATE 25 MG TAB PO SCH ×2 (09:20→21:14)
[2017-04-26] MEDS: SODIUM CHLORIDE 0.9% FLUSH 5 ML FLUSH IV FLUSH SCH ×2 (09:21→12:31)
[2017-04-26] MEDS: BUDESONIDE-FORMOTEROL 160/4.5 MCG INHALER INH SCH ×2 (09:21→21:14)
[2017-04-26 09:22] LABS: BANDS 9 % (0-6); BASOPHILS 1 % (0-2); EOSINOPHILS 6 % (0-4); METAMYELOCYTES 2 % (0-1); MYELOCYTES 4 % (0-0); POLYS (SEG NEUTROPHILS) 50 % (16-70); WBC DIFF SAMPLE 100
[2017-04-26 09:23] LABS: PLATELET ESTIMATE SMEAR HIGH (NORMAL); PLATELET MORPHOLOGY NORMAL (NORMAL); SCAN/DIFF FINAL DIFF MANUAL
--- NOTE | 2017-04-26 09:53 | HHI.PR ---
Subjective Remarks Follow-up for empyema Patient stated he feels a lot better. Denied any shortness of breathing or cough. She has no complaints. He stated that pain was controlled current regimen. Objective Vitals Vital Signs Date Time Temp Pulse Resp B/P Pulse Ox O2 Delivery O2 Flow Rate FiO2 04/26/17 09:06 93 04/26/17 08:00 98.8 96 18 124/74 93 04/26/17 08:00 109 04/26/17 06:00 104 04/26/17 05:00 94 04/26/17 04:00 90 04/26/17 03:50 97.7 98 20 117/74 93 04/26/17 03:00 94 04/26/17 02:00 93 04/26/17 01:00 98 04/26/17 00:00 98 04/25/17 23:40 98.4 100 20 120/85 93 04/25/17 23:00 99 04/25/17 22:00 102 04/25/17 21:00 112 04/25/17 20:40 97.9 107 20 129/86 95 04/25/17 20:34 95 04/25/17 20:00 108 04/25/17 19:00 101 04/25/17 18:12 103 04/25/17 18:12 20 04/25/17 16:46 101 04/25/17 15:51 107 04/25/17 15:51 97.8 107 18 114/83 93 04/25/17 13:49 97 04/25/17 12:46 99 04/25/17 11:36 97.6 88 20 122/73 93 04/25/17 11:36 88 04/25/17 10:36 102 04/25/17 10:33 98 I/O 04/25/17 04/25/17 04/25/17 04/26/17 04/26/17 04/26/17 07:00 15:00 23:00 07:00 15:00 23:00 Intake Total 680 ml 920 ml 920 ml Output Total 20 ml 30 ml 10 ml Balance 660 ml 890 ml 910 ml Intake Oral 480 ml 720 ml 720 ml IV Total 200 ml 200 ml 200 ml Chest Tube Drainage Total 30 ml 10 ml Drainage Total 20 ml # Voids 4 4 3 # Bowel Movements 1 0 0 Result Diagram: 04/26/17605 04/26/17 0606 Imaging Last Impressions Chest X-Ray 04/25/17 0600 Signed Impressions: Service Date/Time: April 05:05 - CONCLUSION: Persistent left mid and lower lung consolidation. Jaylen Cerrato MD Chest CT 04/19/17 0000 Signed Impressions: Service Date/Time: Wednesday, April 19, 2017 15:41 - CONCLUSION: 1. Reaccumulation of a small to moderate-sized left pleural effusion. 2. Persistent dense consolidation of the left lower lobe. 3. New patchy air space disease in the right apex and right lower lobe. Paul Spence MD Thoracentesis Ultrasound 04/15/17 0000 Signed Impressions: Service Date/Time: Saturday, April 15, 2017 09:17 - CONCLUSION: Unsuccessful ultrasound guided thoracentesis. Lobo Dominguez MD FACR Thoracentesis 04/15/17 0000 Signed Impressions: Service Date/Time: Saturday, April 15, 2017 09:57 - CONCLUSION: Uncomplicated CT-guided left thoracentesis. Lobo Dominguez MD FACR CT Angiography 04/14/17 1918 Signed Impressions: Service Date/Time: Friday, April 14, 2017 21:22 - CONCLUSION: 1. Study limited by motion artifact and contrast bolus but no large central emboli are identified. 2. Moderate left effusion and compressive atelectasis posteriorly in the left lung. Moderate coronary calcifications. Rowdy Mckinley MD Objective Remarks GENERAL: In no acute distress. CARDIOVASCULAR: Regular rate and rhythm without murmurs, gallops, or rubs. RESPIRATORY: CTA B/L. Chest tube in place. Serosanguineous. No accessory muscle use. GASTROINTESTINAL: Abdomen soft, non-tender, nondistended. MUSCULOSKELETAL: No cyanosis, or edema. BACK: Nontender without obvious deformity. No CVA tenderness. Medications and IVs Current Medications Aspirin (Aspirin) 325 mg ONCE ONCE PO Last administered on 04/14/17 19:43; Start 04/14/17 at 19:30; Stop 04/14/17 at 19:31; Status DC Hydromorphone HCl (Dilaudid Pf Inj) 0.5 mg ONCE ONCE IV PUSH Last administered on 04/14/17 19:43; Start 04/14/17 at 19:30; Stop 04/14/17 at 19:31; Status DC Ondansetron HCl 4 mg 4 mg ONCE ONCE IV PUSH Last administered on 04/14/17 19: 43; Start 04/14/17 at 19:30; Stop 04/14/17 at 19:31; Status DC Ceftriaxone Sodium 1000 mg/ Sodium Chloride 100 ml @ 200 mls/hr ONCE ONCE IV Last administered on 04/14/17 21:31; Start 04/14/17 at 20:00; Stop 04/14/17 at 20: 29; Status DC Azithromycin 500 mg/Sodium Chloride 250 ml @ 250 mls/hr ONCE ONCE IV Last administered on 04/14/17 21:54; Start 04/14/17 at 20:00; Stop 04/14/17 at 20:59; Status DC Calcium Gluconate/ Dextrose (Calcium Gluconate Inj/D5W 100 ml Inj) 110 ml @ 110 mls/hr ONCE ONCE IV Last administered on 04/14/17 22:56; Start 04/14/17 at 20:30; Stop 04/14/17 at 21:29; Status DC Potassium Chloride (KCl) 30 meq ONCE ONCE PO Last administered on 04/14/17 21: 30; Start 04/14/17 at 21:00; Stop 04/14/17 at 21:04; Status DC Iohexol 75 ml 75 ml STK-MED ONCE IV Last administered on 04/14/17 21:24; Start 04/14/17 at 21:24; Stop 04/14/17 at 21:25; Status DC Ceftriaxone Sodium 1000 mg/ Sodium Chloride 100 ml @ 200 mls/hr Q24H IV ; Start 04/15/17 at 22:00; Stop 04/15/17 at 22:00; Status DC Azithromycin/ Sodium Chloride (Zithromax Inj/ NS 250 ml Inj) 250 ml @ 250 mls/ hr Q24H IV Last administered on 04/22/17 21:00; Start 04/15/17 at 21:00; Stop 04/23/17 at 16:21; Status DC Albuterol/ Ipratropium (Duoneb Neb) 1 ampule Q2HR NEB PRN NEB SOB/WHEEZING; Start 04/14/17 at 22:15; Stop 04/23/17 at 14:06; Status DC Guaifenesin (Mucinex Er) 600 mg BID PO Last administered on 04/26/17 09:19; Start 04/15/17 at 09:00 Budesonide/ Formoterol Fumarate (Symbicort 160-4.5 Inh) 2 puff Q12HR INH Last administered on 04/16/17 12:01; Start 04/15/17 at 09:00; Stop 04/17/17 at 20:26; Status DC Sodium Chloride (NS Flush) 2 ml UNSCH PRN IV FLUSH FLUSH AFTER USING IV ACCESS ; Start 04/14/17 at 22:15; Stop 04/22/17 at 20:18; Status DC Sodium Chloride (NS Flush) 2 ml BID IV FLUSH Last administered on 04/21/17 22: 02; Start 04/15/17 at 09:00; Stop 04/22/17 at 20:18; Status DC Ondansetron HCl (Zofran Inj) 4 mg Q6H PRN IVP NAUSEA OR VOMITING; Start at 22:15; Stop 04/22/17 at 20:18; Status DC Acetaminophen (Tylenol) 650 mg Q6H PRN PO FEVER/PAIN SCALE 1 TO 2; Start at 22:15 Acetaminophen/ Hydrocodone Bitart ([place] 5-325 Mg) 1 tab Q4H PRN PO PAIN SCALE 3 TO 5 Last administered on 04/23/17 15:36; Start 04/14/17 at 22:15 Morphine Sulfate (Morphine Inj) 2 mg Q3H PRN IV BREAKTHROUGH PAIN Last administered on 04/16/17 22:10; Start 04/14/17 at 22:15; Stop 04/22/17 at 16:43; Status DC Senna/Docusate Sodium (Susan-Colace) 1 tab BID PO Last administered on 09:54; Start 04/15/17 at 09:00; Stop 04/22/17 at 20:14; Status DC Magnesium Hydroxide (Milk Of Magnesia Liq) 30 ml Q12H PRN PO MILD - MODERATE CONSTIPATION; Start 04/14/17 at 22:15; Stop 04/22/17 at 19:44; Status DC Sennosides (Senokot) 17.2 mg Q12H PRN PO MODERATE - SEVERE CONSTIPATION; Start 04/14/17 at 22:15; Stop 04/22/17 at 20:16; Status DC Bisacodyl (Dulcolax Supp) 10 mg DAILY PRN RECTAL SEVERE CONSITIPATION; Start at 22:15; Stop 04/22/17 at 20:12; Status DC Lactulose (Lactulose Liq) 30 ml DAILY PRN PO SEVERE CONSITIPATION; Start at 22:15; Stop 04/22/17 at 20:13; Status DC Lidocaine HCl (Xylocaine-Mpf 1% Inj) 30 ml STK-MED ONCE .ROUTE Last administered on 04/15/17 10:07; Start 04/15/17 at 10:07; Stop 04/15/17 at 10:08; Status DC Fentanyl Citrate (fentaNYL INJ) 250 mcg STK-MED ONCE .ROUTE Last administered on 04/15/17 10:11; Start 04/15/17 at 10:11; Stop 04/15/17 at 10:12; Status DC Acetaminophen/ Hydrocodone Bitart ([place] 10-325 Mg) 1 tab Q4H PRN PO PAIN SCALE 6 TO 10 Last administered on 04/26/17 09:20; Start 04/15/17 at 13:00 Heparin Sodium (Porcine) (Heparin Inj) 5,000 units Q8HR SQ Last administered on 04/21/17 13:45; Start 04/15/17 at 14:00; Status Hold Methylprednisolone Sodium Succinate (SoluMEDROL INJ) 40 mg Q6HR IV Last administered on 04/16/17 17:29; Start 04/16/17 at 00:00; Stop 04/16/17 at 20:05; Status DC Albuterol/ Ipratropium (Duoneb Neb) 1 ampule Q4HR NEB NEB Last administered on 04/19/17 16:22; Start 04/15/17 at 20:00; Stop 04/19/17 at 20:00; Status DC Budesonide/ Formoterol Fumarate 2 puff 2 puff Q12HR INH Last administered on 09:21; Start 04/15/17 at 21:00 Cefepime HCl 2000 mg/Sodium Chloride 100 ml @ 200 mls/hr Q8H IV Last administered on 04/23/17 11:48; Start 04/15/17 at 21:00; Stop 04/23/17 at 16:21 ; Status DC Potassium Chloride/Dextrose/ Sod Cl (D5-1/2 NS + KCl 20 Meq Inj) 1,000 ml @ 84 mls/hr [id number] IV Last administered on 04/23/17 08:43; Start 04/15/17 at 20:00 ; Stop 04/23/17 at 14:06; Status DC Potassium Chloride 60 meq 60 meq ONCE ONCE PO Last administered on 04/16/17 09 :11; Start 04/16/17 at 08:15; Stop 04/16/17 at 08:16; Status DC Potassium Chloride (KCl 10 Meq Premix Inj) 100 ml @ 100 mls/hr BOLUS ONCE IV Last administered on 04/16/17 09:11; Start 04/16/17 at 08:15; Stop 04/16/17 at 09: 14; Status DC Methylprednisolone Sodium Succinate 40 mg 40 mg Q8HR IV Last administered on 06:00; Start 04/17/17 at 06:00; Stop 04/18/17 at 12:34; Status DC Clindamycin Phosphate 900 mg/ Sodium Chloride 106 ml @ 212 mls/hr Q6H IV Last administered on 04/23/17 15:36; Start 04/17/17 at 22:00; Stop 04/23/17 at 16:22 ; Status DC Sodium Phosphate/ Sodium Chloride (Sodium Phosphate Inj/NS Inj) 155 ml @ 38.75 mls/ hr ONCE ONCE IV Last administered on 04/17/17 22:11; Start 04/17/17 at 22: 00; Stop 04/18/17 at 01:59; Status DC Prednisone 10 mg 10 mg DAILY PO ; Start 04/19/17 at 09:00; Stop 04/19/17 at 09: 00; Status DC Vancomycin HCl 1000 mg/Sodium Chloride 250 ml @ 250 mls/hr Q12H IV Last administered on 04/23/17 08:39; Start 04/19/17 at 20:00; Stop 04/23/17 at 16:22 ; Status DC Cefazolin Sodium/ Dextrose (Ancef 2 Gm Premix) 50 ml @ 100 mls/hr [place] [employer] IV ; Start 04/20/17 at 11:45; Stop 04/24/17 at 11:44; Status DC Metoprolol Tartrate (Lopressor) 12.5 mg [place] PO ; Start 04/20/17 at 11:45; Stop 04/23/17 at 14:06; Status DC Mupirocin (Bactroban Nasal 2% Oint) 1 applic BID EACH NARE Last administered on 04/25/17 08:18; Start 04/20/17 at 11:45; Stop 04/25/17 at 11:44; Status DC Chlorhexidine Gluconate 1 applic 1 applic [place] [employer] TOPICAL Last administered on 04/22/17 14:35; Start 04/20/17 at 11:45; Stop 04/23/17 at 14:07; Status DC Insulin Human Regular 100 units/ Sodium Chloride 101 ml @ 0 mls/hr [place] [employer] IV ; Start 04/20/17 at 11:45; Stop 04/23/17 at 14:07; Status DC Lactated Ringer's (Lr 1000 ml Inj) 1,000 ml @ 30 mls/hr Q24H PRN IV SEE LABEL COMMENTS; Start 04/22/17 at 04:00; Stop 04/25/17 at 03:59; Status DC Povidone Iodine (Betadine 5% Antisepsis Kit) 1 applic [place] PRN EACH NARE SEE LABEL COMMENTS; Start 04/22/17 at 04:00; Stop 04/25/17 at 03:59; Status DC Chlorhexidine Gluconate (Chlorhexidine 2% Cloth) 3 pack [place] [employer] PRN TOPICAL SEE LABEL COMMENTS; Start 04/22/17 at 04:00; Stop 04/23/17 at 14:07; Status DC Bupivacaine HCl (Marcaine Pf 0.5% Inj) 30 ml STK-MED ONCE .ROUTE Last administered on 04/22/17 16:30; Start 04/22/17 at 14:53; Stop 04/23/17 at 14:07 ; Status DC Albuterol Sulfate (Albuterol Neb) 2.5 mg Q6HR NEB NEB Last administered on 09:04; Start 04/22/17 at 22:00 Albuterol Sulfate (Albuterol Neb) 2.5 mg Q2HR NEB PRN NEB WHEEZING; Start 04/22 at 16:45 IV Flush (NS Flush) 2 ml BID IV FLUSH Last administered on 04/26/17 09:21; Start 04/22/17 at 21:00 IV Flush (NS Flush) 2 ml UNSCH PRN IV FLUSH FLUSH AFTER USING IV ACCESS; Start 04/22/17 at 16:45 Miscellaneous Information (Post-op Orders (for Pharmacy)) STAT ONCE OTHER ; Start 04/22/17 at 16:45; Stop 04/22/17 at 20:08; Status DC Pantoprazole Sodium (Protonix) 40 mg HS PO Last administered on 04/25/17 20:40 ; Start 04/22/17 at 21:00 Ondansetron HCl (Zofran Inj) 4 mg Q6H PRN IV PUSH NAUSEA OR VOMITING; Start at 16:45 Docusate Calcium (Surfak) 240 mg HS PO Last administered on 04/25/17 20:40; Start 04/22/17 at 21:00 Magnesium Hydroxide (Milk Of Magnesia Liq) 30 ml DAILY PRN PO CONSTIPATION; Start 04/22/17 at 16:45 Acetaminophen (Tylenol) 650 mg Q4H PRN PO TEMPERATURE > 101 F; Start 04/22/17 at 16:45 Insulin Aspart (NovoLOG SUPPLEMENTAL SCALE) Q6HR SQ ; Start 04/22/17 at 18:00; Stop 04/23/17 at 14:07; Status DC Miscellaneous Information 1 ONCE ONCE OTHER ; Start 04/22/17 at 16:45; Stop at 16:46; Status UNV Dextrose (D50w (Vial) Inj) 50 ml UNSCH PRN IV HYPOGLYCEMIA-SEE COMMENTS; Start 04/22/17 at 16:45; Stop 04/23/17 at 14:07; Status DC Glucagon (Glucagon Inj) 1 mg UNSCH PRN IV HYPOGLYCEMIA-SEE COMMENTS; Start at 16:45; Stop 04/23/17 at 14:06; Status DC Oxycodone/ Acetaminophen (Percocet 5-325 Mg) 1 tab Q3H PRN PO PAIN SCALE 3 TO 5; Start 04/22/17 at 16:45; Status UNV Ketorolac Tromethamine (Toradol Inj) 15 mg Q6H IV PUSH Last administered on 11:48; Start 04/22/17 at 18:00; Stop 04/23/17 at 12:01; Status DC Fentanyl Citrate (fentaNYL INJ) 500 mcg STK-MED ONCE .ROUTE ; Start 04/22/17 at 17:01; Stop 04/22/17 at 17:02; Status DC Morphine Sulfate (*morphine INJ PERIprocedure ONLY) 8 mg STK-MED ONCE .ROUTE Last administered on 04/22/17 17:02; Start 04/22/17 at 17:02; Stop 04/23/17 at 14:06; Status DC Meperidine HCl (*DEMEROL INJ PERIprocedural ONLY) 25 mg STK-MED ONCE .ROUTE Last administered on 04/22/17 17:22; Start 04/22/17 at 17:22; Stop 04/23/17 at 14:06; Status DC Miscellaneous Information ALL NURSING DEPARTME... UNSCH PRN .XX SEE LABEL COMMENTS; Start 04/22/17 at 16:49; Stop 04/23/17 at 14:06; Status DC Morphine Sulfate (*morphine INJ PERIprocedure ONLY) 8 mg STK-MED ONCE .ROUTE Last administered on 04/22/17 19:01; Start 04/22/17 at 19:01; Stop 04/23/17 at 14:06; Status DC Budesonide/ Formoterol Fumarate 2 puff 2 puff Q12HR INH ; Start 04/22/17 at 21: 00; Status UNV Ampicillin Sodium/ Sulbactam Sodium/ Sodium Chloride (Unasyn Inj/NS Inj) 100 ml @ 200 mls/hr Q6H IV Last administered on 04/26/17 05:08; Start 04/23/17 at 18 :00 Metoprolol Tartrate (Lopressor) 25 mg BID PO Last administered on 04/26/17 09: 20; Start 04/23/17 at 21:00 Metoprolol Tartrate (Lopressor) 25 mg NOW ONCE PO Last administered on 18:13; Start 04/23/17 at 17:30; Stop 04/23/17 at 17:31; Status DC Morphine Sulfate (Oramorph Sr) 15 mg Q12HR PO Last administered on 04/25/17 21 :45; Start 04/24/17 at 13:00 A/P Problem List: (1) Sepsis ICD Code: A41.9 Status: Acute (2) PNA (pneumonia) ICD Code: J18.9 Status: Acute (3) Pleural effusion ICD Code: J90 Status: Acute (4) Hypocalcemia ICD Code: E83.51 Status: Acute (5) Hypokalemia ICD Code: E87.6 Status: Acute Assessment and Plan This is a 47-year-old male with no significant PMH severe SOB and left-sided rib pain - Sepsis: HR 120's, RR 24, WBC 15, Source-presumed PNA/empyema. - s/p CT guided thoracentesis (u/s guided was unsuccessful). - cardiothoracic and pulmonary following. -See treatment as below. -Left basilar pneumonia complicated by empyema: -CXR w/ basilar atelectasis possibly PNA, CTA negative for PE, moderate pleural effusion. DuoNeb prn. - s/p thoracentesis. White blood cells [id number], RBCs 4000. Pleural LDH 824 - Follow up fluid cultures, continue negative to date -Status post Left thoracoscopic exploration for loculated pleural effusion, drainage of effusion, decortication, pleural biopsies on [id number] - Previously patient was on Azithromycin, Cefepime and Clindamycin. Infectious disease consulted. Appreciate consult. Per infectious disease azithromycin cefepime and clindamycin was discontinued. Patient now on Ancef on 04/23. -Pain controlled with Oramorph and [place] for breakthrough pain. -Chest tube will be placed at water seal today. -Per infectious disease If CTS clears pt for discharge ok to discharge pt on Augmentin oral for 4 weeks and follow up with Dr.Reba Cisneros in 2 weeks. -If CTS plans on further surgery will need to wait on repeat blood cultures for new ID recommendations. - Hypokalemia: Currently resolved after replacement. - Continue to monitor and replace as necessary. - Hypocalcemia: Ca 5.9, corrected 6.7. Asymptomatic. S/p replacement, resolved. Full code. Heparin SQ. Problem Qualifiers (1) Sepsis: Qualified Code: A41.9 - Sepsis, due to unspecified organism Taina Gudino MD Apr 26, 2017 09:53
[2017-04-26] MEDS: MORPHINE SULFATE 15 MG CONTROLLED RELEASE TAB PO SCH ×2 (10:33→21:14)
--- NOTE | 2017-04-26 12:08 | RADRPT ---
EXAM DATE/TIME: 04/26/2017 11:44 [facility] COMPARISON: CT THORAX W/O CONTRAST, April 19, 2017, 15:41. INDICATIONS : Follow up left lower pneumonia. RADIATION DOSE: 6.12 CTDIvol (mGy) MEDICAL HISTORY : Hypertension. SURGICAL HISTORY : None. ENCOUNTER: Initial ACUITY: 1 day PAIN SCALE: 5/10 LOCATION: Bilateral chest TECHNIQUE: Volumetric scanning of the chest was performed. Using automated exposure control and adjustment of t he mA and/or kV according to patient size, radiation dose was kept as low as reasonably achievable to obtain optimal diagnostic quality images. DICOM format image data is available electronically for r eview and comparison. Follow-up recommendations for detected pulmonary nodules are based at a minimum on nodule size and pa tient risk factors according to Fleischner Society Guidelines. FINDINGS: LUNGS: 2 chest tubes are in place on the left with good clearing of the consolidative changes in the left anna marie ng. Thick pleural rind and consolidative fluid remains. The right lung is clear. MEDIASTINUM: Minimal LAD calcifications are evident. Small nonspecific nodes are present in the AP window. AXILLAE: Within normal limits. No lymphadenopathy. MUSCULOSKELETAL: Within normal limits for patient age. MISCELLANEOUS: The visualized upper abdominal organs demonstrate no acute abnormality. CONCLUSION: Interval improvement with 2 chest tubes in good position. Significant pleural rind remains. Lobo Dominguez MD FACR on April 26, 2017 at 12:04 Board Certified Radiologist. This report was verified electronically.
[2017-04-26 13:28] LABS: BLASTOMYCES ABS Negative (Negative); CRYPTOCOCCUS ANTIGEN Negative (Negative)
--- NOTE | 2017-04-26 15:44 | PD.CAR.PN ---
CVT Progress Note Subjective/Hospital Course: 47-year-old male with no significant PMH who was brought to the ER by EMS secondary to complaints of severe SOB and left-sided rib pain while driving on the highway. 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 No previous history of similar symptoms in the past. States he has been "feeling sick" x1 wk w/ subjective fever, chills and productive cough w/ yellow-mackenzie colored sputum. Did not seek medical attention for symptoms, not on antibiotics. Does report previous exposure to Poison [place], seen by Speech Therapy Teacher and started on topical steroids with improvement. States symptoms started shortly after rash. On arrival, BP 145/96, HR 120, O2 sat 91% on RA, Afebrile. WBC 15.1. K+ 2.9. Ca 5.9. ABG unremarkable. CXR w/ left basal airspace disease, possibly pneumonia. CTA Pulm w/ no evidence of central emboli, moderate large effusion and compressive atelectasis on left w/ moderate coronary calcifications. S/p Rocephin/Zithro in ER. Pt denies h/o pleural effusion, no h/o CHF. CXR and chest ct evaluated by Dr Adams CXR improved after thoracentesis , plan is to re-eval with new CT chest today 04/20/17 Patient underwent repeat chest CT which shows reaccumulation of small to moderate left pleural effusion with adjacent atelectasis as well as bilateral infiltrates. c/o productive cough and feels more short of breath. 04/22 Left thoracoscopic exploration for loculated pleural effusion, drainage of effusion, decortication, pleural biopsy/ drained 500cc serosang drainage 04/23 weaning off 02 chest tube x 2 to wall suction drained 110cc/ 12 hrs pulm toileting , nebs , ezpap acapella 04/24 chest tube drained 60cc/ 12 hrs sero sang drainage no air leak, will place to water seal in am continue antibiotics 04/25 cxr noted still has some left mid and lower lung consolidation chest tube to water seal eval for removal in am 04/26 ct chest chest noted, stable, minimal drainage chest tubes dc x 2 vaseline to gauze in place leave in place x 48hrs then ok to shower has follow up appointment with Dr Adams Objective: GENERAL: SKIN: Warm and dry. dry dressing to left lateral chest area HEAD: Normocephalic. EYES: No scleral icterus. No injection or drainage. NECK: Supple, trachea midline. No JVD or lymphadenopathy. CARDIOVASCULAR: Regular rate and rhythm without murmurs, gallops, or rubs. RESPIRATORY: Breath sounds equal bilaterally. No accessory muscle use. diminished left lower lobe GASTROINTESTINAL: Abdomen soft, non-tender, nondistended. MUSCULOSKELETAL: No cyanosis, or edema. BACK: Nontender without obvious deformity. No CVA tenderness. Vital Signs Date Time Temp Pulse Resp B/P Pulse Ox O2 Delivery O2 Flow Rate FiO2 04/26/17 15:33 98.3 89 18 117/71 94 04/26/17 15:16 95 04/26/17 14:01 87 04/26/17 13:39 18 04/26/17 13:16 86 04/26/17 12:37 98.3 82 18 125/84 93 04/26/17 12:03 91 04/26/17 11:57 90 04/26/17 10:37 90 04/26/17 09:06 93 04/26/17 09:00 96 04/26/17 08:00 98.8 96 18 124/74 93 04/26/17 08:00 85 04/26/17 08:00 109 04/26/17 06:00 104 04/26/17 05:00 94 04/26/17 04:00 90 04/26/17 03:50 97.7 98 20 117/74 93 04/26/17 03:00 94 04/26/17 02:00 93 04/26/17 01:00 98 04/26/17 00:00 98 04/25/17 23:40 98.4 100 20 120/85 93 04/25/17 23:00 99 04/25/17 22:00 102 04/25/17 21:00 112 04/25/17 20:40 97.9 107 20 129/86 95 04/25/17 20:34 95 04/25/17 20:00 108 04/25/17 19:00 101 04/25/17 18:12 103 04/25/17 16:46 101 04/25/17 15:51 107 04/25/17 15:51 97.8 107 18 114/83 93 Labs: Laboratory Tests Test 04/26/17 06:06 White Blood Count 12.3 TH/MM3 (4.0-11.0) Red Blood Count 4.06 MIL/MM3 (4.50-5.90) Hemoglobin 11.5 GM/DL (13.0-17.0) Hematocrit 34.6 % (39.0-51.0) Mean Corpuscular Volume 85.1 FL (80.0-100.0) Mean Corpuscular Hemoglobin 28.4 PG (27.0-34.0) Mean Corpuscular Hemoglobin 33.4 % Concent (32.0-36.0) Red Cell Distribution Width 14.4 % (11.6-17.2) Platelet Count 529 TH/MM3 (150-450) Mean Platelet Volume 8.1 FL (7.0-11.0) Neutrophils (%) (Auto) 64.2 % (16.0-70.0) Lymphocytes (%) (Auto) 19.6 % (9.0-44.0) Monocytes (%) (Auto) 10.9 % (0.0-8.0) Eosinophils (%) (Auto) 4.0 % (0.0-4.0) Basophils (%) (Auto) 1.3 % (0.0-2.0) Neutrophils # (Auto) 7.9 TH/MM3 (1.8-7.7) Lymphocytes # (Auto) 2.4 TH/MM3 (1.0-4.8) Monocytes # (Auto) 1.3 TH/MM3 (0-0.9) Eosinophils # (Auto) 0.5 TH/MM3 (0-0.4) Basophils # (Auto) 0.2 TH/MM3 (0-0.2) CBC Comment AUTO DIFF Differential Total Cells 100 Counted Neutrophils % (Manual) 50 % (16-70) Band Neutrophils % 9 % (0-6) Lymphocytes % 16 % (9-44) Monocytes % 12 % (0-8) Eosinophils % 6 % (0-4) Basophils % 1 % (0-2) Neutrophils # (Manual) 8.0 TH/MM3 (1.8-7.7) Metamyelocytes 2 % (0-1) Myelocytes 4 % (0-0) Differential Comment FINAL DIFF MANUAL Platelet Estimate HIGH (NORMAL) Platelet Morphology Comment NORMAL (NORMAL) Red Cell Morphology Comment NORMAL (NORMAL) Sodium Level 134 MEQ/L (136-145) Potassium Level 4.2 MEQ/L (3.5-5.1) Chloride Level 97 MEQ/L (98-107) Carbon Dioxide Level 30.4 MEQ/L (21.0-32.0) Anion Gap 7 MEQ/L (5-15) Blood Urea Nitrogen 10 MG/DL (7-18) Creatinine 0.67 MG/DL (0.60-1.30) Estimat Glomerular Filtration 126 ML/MIN Rate (>89) Random Glucose 77 MG/DL (74-106) Calcium Level 9.1 MG/DL (8.5-10.1) Result Diagram: 04/26/17 0604/26/17 06 Telemetry: NSR (1) PNA (pneumonia) Plan: ABX per ID (2) Pleural effusion Plan: s/p thoracentesis / exudative by light's criteria no growth in pleural fluid or blood cultures continue IV antibiotics/ CT chest noted , stable chest tubes dc without difficulty (3) Left thoracoscopic exploration for loculated pleural effusion, drainage of effusion, decortication, pleural biopsie Plan: chest tubes without difficulty pulm toileting OOB, ambulate pleural cultures neg to date path fibrin, granulation tissue ok to dc sada , if CXR stable no PTX and cleared by ID Mely Alejo Apr 26, 2017 15:44
--- NOTE | 2017-04-26 19:16 | HHI.PR ---
Subjective Remarks Feels better. Walked the halls. Chest tube drainage is less Pleural fluid shows no growth . No fever. Chest pain is less. Objective Vital Signs Date Time Temp Pulse Resp B/P Pulse Ox O2 Delivery O2 Flow Rate FiO2 04/26/17 18:27 97 04/26/17 17:41 16 04/26/17 17:14 107 04/26/17 16:36 84 04/26/17 15:33 98.3 89 18 117/71 94 04/26/17 15:16 95 04/26/17 14:01 87 04/26/17 13:16 86 04/26/17 12:37 98.3 82 18 125/84 93 04/26/17 12:03 91 04/26/17 11:57 90 04/26/17 10:37 90 04/26/17 09:06 93 04/26/17 09:00 96 04/26/17 08:00 98.8 96 18 124/74 93 04/26/17 08:00 85 04/26/17 08:00 109 04/26/17 06:00 104 04/26/17 05:00 94 04/26/17 04:00 90 04/26/17 03:50 97.7 98 20 117/74 93 04/26/17 03:00 94 04/26/17 02:00 93 04/26/17 01:00 98 04/26/17 00:00 98 04/25/17 23:40 98.4 100 20 120/85 93 04/25/17 23:00 99 04/25/17 22:00 102 04/25/17 21:00 112 04/25/17 20:40 97.9 107 20 129/86 95 04/25/17 20:34 95 04/25/17 20:00 108 I/O 04/25/17 04/25/17 04/25/17 04/26/17 04/26/17 04/26/17 07:00 15:00 23:00 07:00 15:00 23:00 Intake Total 680 ml 920 ml 920 ml 1120 ml Output Total 20 ml 30 ml 10 ml 0 ml Balance 660 ml 890 ml 910 ml 1120 ml Intake Oral 480 ml 720 ml 720 ml 720 ml IV Total 200 ml 200 ml 200 ml 400 ml Chest Tube Drainage Total 30 ml 10 ml 0 ml Drainage Total 20 ml # Voids 4 4 3 5 # Bowel Movements 1 0 0 1 Result Diagram: 04/26/17 0606 04/26/17 0606 Objective Remarks GENERAL: This is a well-built middle-aged white male who is alert HEENT: Head normocephalic. Pupils are reactive and equal. Throat is clear. NECK: Supple. No bruits or lymphadenopathy or thyromegaly. CHEST: Distant breath sounds over the left chest .Occ Wheeze. HEART: Heart sounds are regular, S1-S2. No murmur. No S3 gallop. ABDOMEN: The abdomen is soft, protuberant. No masses or organomegaly or tenderness. Bowel sounds are active. EXTREMITIES: No edema. No calf tenderness. Reflexes are 1+ with no gross deficits. The patient is alert and oriented. Skin was warm and dry. Assessment and Plan Assessment and Plan IMPRESSION 1. Left basilar pneumonia with left pleural effusion.Poss Empyema 2. Asthmatic bronchitis. 3. Pleuritic chest pain. 4. Hypokalemia. 5. Sepsis. Plan : 1. Continue Unasyn per ID 2. D/C O2 3. Chest tube to drain 4. Nebs qid , duoneb 5. Rpt CXR in am 6. Symbicort 160/4.5 mcg , 2 puffs bid 7. IS at bedside q4h Fabricio Lambert MD Apr 26, 2017 19:16
[2017-04-26] MEDS: DOCUSATE CALCIUM 240 MG CAP PO SCH (21:14)
[2017-04-26] MEDS: PANTOPRAZOLE SOD 40 MG DELAYED RELEASE TAB PO SCH (21:14)
[2017-04-27] VITALS (13 sets, daily range): BP systolic 111–119; BP diastolic 76–85; PULSE 63–100; RESP 18–20; TEMP 98.3–99.2; O2SAT 93–96
[2017-04-27] MEDS: ACETAMINOPHEN/HYDROcodone 325 MG/10 MG TAB PO PRN ×2 (03:42→08:37)
[2017-04-27] MEDS: AMPICILLIN-SULBACTAM INJ 1,500 MG in SODIUM CHLORIDE 0.9% INJ 100 ML IV SCH (06:10)
--- NOTE | 2017-04-27 06:48 | RADRPT ---
EXAM DATE/TIME: 04/27/2017 06:35 [facility] COMPARISON: CHEST SINGLE AP, April 25, 2017, 5:05. INDICATIONS : Shortness of breath, possible pulmonary disease. MEDICAL HISTORY : Hypertension. SURGICAL HISTORY : None. ENCOUNTER: Subsequent ACUITY: 1 week PAIN SCORE: 0/10 LOCATION: Bilateral chest FINDINGS: Previous left chest tubes have been removed. There is residual left-sided pleural thickening and prob able small effusion. Mild left basilar airspace disease. Right lung remains clear. CONCLUSION: 1. Removal of left-sided chest tubes since April 25 with residual left pleural fluid and basilar air space disease. Rowdy Mckinley MD on April 27, 2017 at 6:45 Board Certified Radiologist. This report was verified electronically.
[2017-04-27] MEDS: BUDESONIDE-FORMOTEROL 160/4.5 MCG INHALER INH SCH (08:35)
[2017-04-27] MEDS: SODIUM CHLORIDE 0.9% FLUSH 5 ML FLUSH IV FLUSH SCH (08:36)
[2017-04-27] MEDS: MORPHINE SULFATE 15 MG CONTROLLED RELEASE TAB PO SCH (08:37)
[2017-04-27] MEDS: METOPROLOL TARTRATE 25 MG TAB PO SCH (08:37)
[2017-04-27] MEDS: guaiFENesin E.R. 600 MG TAB PO SCH (08:38)
[2017-04-27] MEDS ORDERED: SYMB160A INH (09:42)
[2017-04-27] MEDS ORDERED: guaiFENesin ER PO (09:42)
[2017-04-27] MEDS ORDERED: METO25TA3 PO (09:42)
[2017-04-27] MEDS ORDERED: DOCU2.5C PO (09:42)
[2017-04-27] MEDS ORDERED: AUGM875T3 PO (09:42)
--- NOTE | 2017-04-27 09:43 | HHI.DCPOC ---
Discharge Care Plan Diagnosis: (1) Empyema lung (2) Left thoracoscopic exploration for loculated pleural effusion, drainage of effusion, decortication, pleural biopsie (3) Sepsis (4) Pleural effusion (5) PNA (pneumonia) Goals to Promote Your Health * To prevent worsening of your condition and complications * To maintain your health at the optimal level Directions to Meet Your Goals Take your medications as prescribed Follow your dietary instruction Follow activity as directed Keep your appointments as scheduled Take your immunizations and boosters as scheduled If your symptoms worsen call your PCP, if no PCP go to Urgent Care Center or Emergency Room Smoking is Dangerous to Your Health. Avoid second hand smoke Call the 24-hour hour crisis hotline for domestic abuse at Taina Gudino MD Apr 27, 2017 09:43
[2017-04-27 09:53] LABS: AUTOMATED NEUTROPHIL # 6.4 TH/MM3 (1.8-7.7); BASOPHIL # 0.1 TH/MM3 (0-0.2); EOSINOPHIL # 0.4 TH/MM3 (0-0.4); EOSINOPHIL % 4.1 % (0.0-4.0); HEMATOCRIT 37.4 % (39.0-51.0); LYMPH % 24.2 % (9.0-44.0); LYMPHOCYTE # 2.5 TH/MM3 (1.0-4.8); MEAN CELL VOLUME 84.8 FL (80.0-100.0); MEAN CORPUSCULAR HEMOGLOBIN 27.9 PG (27.0-34.0); MEAN CORPUSCULAR HGB CONC 32.9 % (32.0-36.0); MONO % 10.2 % (0.0-8.0); NEUT % 60.5 % (16.0-70.0); PLATELET COUNT 556 TH/MM3 (150-450); RED BLOOD COUNT 4.41 MIL/MM3 (4.50-5.90); RED CELL DISTRIBUTION WIDTH 14.5 % (11.6-17.2); WHITE BLOOD COUNT 10.5 TH/MM3 (4.0-11.0)
[2017-04-27 09:56] LABS: HEMO FLAGS AUTO DIFF
[2017-04-27 10:35] LABS: BANDS 2 % (0-6); EOSINOPHILS 3 % (0-4); MYELOCYTES 7 % (0-0); NEUTROPHIL # MANUAL DIFF 6.9 TH/MM3 (1.8-7.7); PLATELET ESTIMATE SMEAR HIGH (NORMAL); PLATELET MORPHOLOGY NORMAL (NORMAL); POLYS (SEG NEUTROPHILS) 57 % (16-70); SCAN/DIFF FINAL DIFF MANUAL; WBC DIFF SAMPLE 100
--- NOTE | 2017-04-27 16:07 | HHI.DS ---
Discharge Summary Admission Date Apr 14, 2017 at 21:58 Discharge Date: Apr 27, 2017 Admitting Diagnosis acute left sided pleural effusion, SOB, sepsis (1) Left thoracoscopic exploration for loculated pleural effusion, drainage of effusion, decortication, pleural biopsie Diagnosis: Principal (2) Empyema lung ICD Code: J86.9 Diagnosis: Principal (3) Sepsis ICD Code: A41.9 Diagnosis: Principal (4) PNA (pneumonia) ICD Code: J18.9 Diagnosis: Principal (5) Hypocalcemia ICD Code: E83.51 Diagnosis: Secondary (6) Hypokalemia ICD Code: E87.6 Diagnosis: Secondary Procedures See hospital course. Brief History - From Admission This is a 47-year-old male with no significant PMH who was brought to the ER by EMS secondary to complaints of severe SOB and left-sided rib pain while driving on the highway. Patient states he was attempting to come to the ER, however pain was so severe he had to loop puller and call EMS. No previous history of similar symptoms in the past. States he has been "feeling sick" x1 wk w/ subjective fever, chills and productive cough w/ yellow-mackenzie colored sputum. Did not seek medical attention for symptoms, not on antibiotics. Does report previous exposure to Poison [place], seen by [employer] and started on topical steroids with improvement. States symptoms started shortly after rash. On arrival, BP 145/96, HR 120, O2 sat 91% on RA, Afebrile. WBC 15.1. K+ 2.9. Ca 5.9. ABG unremarkable. CXR w/ left basal airspace disease, possibly pneumonia. CTA Pulm w/ no evidence of central emboli, moderate large effusion and compressive atelectasis on left w/ moderate coronary calcifications. S/p Rocephin/Zithro in ER. Pt denies h/o pleural effusion, no h/o CHF. CBC/BMP: 04/27/17 0824 04/26/17 0606 Significant Findings Laboratory Tests Test 04/26/17 04/27/17 06:06 08:24 White Blood Count 12.3 TH/MM3 (4.0-11.0) Red Blood Count 4.06 MIL/MM3 4.41 MIL/MM3 (4.50-5.90) (4.50-5.90) Hemoglobin 11.5 GM/DL 12.3 GM/DL (13.0-17.0) (13.0-17.0) Hematocrit 34.6 % 37.4 % (39.0-51.0) (39.0-51.0) Platelet Count 529 TH/MM3 556 TH/MM3 (150-450) (150-450) Monocytes (%) (Auto) 10.9 % 10.2 % (0.0-8.0) (0.0-8.0) Neutrophils # (Auto) 7.9 TH/MM3 (1.8-7.7) Monocytes # (Auto) 1.3 TH/MM3 1.1 TH/MM3 (0-0.9) (0-0.9) Eosinophils # (Auto) 0.5 TH/MM3 (0-0.4) Band Neutrophils % 9 % (0-6) Monocytes % 12 % (0-8) 12 % (0-8) Eosinophils % 6 % (0-4) Neutrophils # (Manual) 8.0 TH/MM3 (1.8-7.7) Metamyelocytes 2 % (0-1) Myelocytes 4 % (0-0) 7 % (0-0) Platelet Estimate HIGH (NORMAL) HIGH (NORMAL) Sodium Level 134 MEQ/L (136-145) Chloride Level 97 MEQ/L (98-107) Eosinophils (%) (Auto) 4.1 % (0.0-4.0) Imaging Last Impressions Chest X-Ray 04/27/17 0600 Signed Impressions: Service Date/Time: Thursday, April 27, 2017 06:35 - CONCLUSION: 1. Removal of left-sided chest tubes since April 25 with residual left pleural fluid and basilar airspace disease. Rowdy Mckinley MD Chest CT 04/26/17 0000 Signed Impressions: Service Date/Time: Wednesday, April 26, 2017 11:44 - CONCLUSION: Interval improvement with 2 chest tubes in good position. Significant pleural rind remains. Lobo Dominguez MD FACR Thoracentesis Ultrasound 04/15/17 0000 Signed Impressions: Service Date/Time: Saturday, April 15, 2017 09:17 - CONCLUSION: Unsuccessful ultrasound guided thoracentesis. Lobo Dominguez MD FACR Thoracentesis 04/15/17 0000 Signed Impressions: Service Date/Time: Saturday, April 15, 2017 09:57 - CONCLUSION: Uncomplicated CT-guided left thoracentesis. Lobo Dominguez MD FACR CT Angiography 04/14/17 1918 Signed Impressions: Service Date/Time: Friday, April 14, 2017 21:22 - CONCLUSION: 1. Study limited by motion artifact and contrast bolus but no large central emboli are identified. 2. Moderate left effusion and compressive atelectasis posteriorly in the left lung. Moderate coronary calcifications. Rowdy Mckinley MD PE at Discharge GENERAL: In no acute distress. CARDIOVASCULAR: Regular rate and rhythm without murmurs, gallops, or rubs. RESPIRATORY: Chest tube removed on 04/26. Clear to auscultation bilaterally. No accessory muscle use. GASTROINTESTINAL: Abdomen soft, non-tender, nondistended. MUSCULOSKELETAL: No cyanosis, or edema. BACK: Nontender without obvious deformity. No CVA tenderness. Pt update on day of discharge Follow-up for chest tube removal and empyema Patient stated that he feels great. Denies any shortness of breathing or cough. Patient very anxious to go home. His sister is at the bedside. He has no other complaints. Patient wants to go home very soon. He remains afebrile. Hospital Course This is a 47-year-old male with no significant PMH severe SOB and left-sided rib pain - Sepsis: HR 120's, RR 24, WBC 15, Source-presumed PNA/empyema. -Patient was given supportive care. See treatment as below. He was put on IV antibiotics quickly and given IV fluids. -Left basilar pneumonia complicated by empyema: -CXR w/ basilar atelectasis possibly PNA, CTA negative for PE, moderate pleural effusion. DuoNeb prn. -- s/p CT guided thoracentesis (u/s guided was unsuccessful). - Machine Chain Maker and cardiothoracic surgeon were following - s/p thoracentesis. White blood cells 45969, RBCs 4000. Pleural LDH 824 - Follow up fluid cultures, continue negative to date -Status post Left thoracoscopic exploration for loculated pleural effusion, drainage of effusion, decortication, pleural biopsies on [id number] - Previously patient was on Azithromycin, Cefepime and Clindamycin. Infectious disease consulted. Appreciate consult. Per infectious disease azithromycin cefepime and clindamycin was discontinued. Patient put on Ancef on 04/23. -Pain controlled with Oramorph and [place] for breakthrough pain. -Chest tube removed on 04/26 and patient did well. -Upon discharge infectious disease wanted patient on Augmentin for 4 weeks. Infectious disease also wanted patient to follow-up with them as outpatient in 2 weeks. -Patient was to follow-up with Dr. Alegria as directed. - Hypokalemia: -Asymptomatic. Replenish as needed. - Hypocalcemia: Ca 5.9, corrected 6.7. Asymptomatic. S/p replacement, resolved. Full code. Heparin SQ. Pt Condition on Discharge: Good Discharge Disposition: Disch w/ Home Health Serv Discharge Time: > 30 minutes Discharge Instructions DIET: Follow Instructions for: Heart Healthy Diet Activities you can perform: See Additionl Instruction Other Activity Instructions: as directed by cardiothoracic surgeon Follow up Referrals: Infectious Disease - 10 Days @ [facility] with Dr.Reba Blayne Cisneros MD PCP Follow-up - 1 Week Surgical with Ninoska Adams MD New Orders: X-RAY CHEST PA & LAT - 2 Weeks New Medications: Amoxicillin-Clavulanate (Augmentin) 875-125 Mg Tab 1 TAB PO BID Infection #60 Ref 0 TAB Budesonide-Formoterol Inh (Symbicort Inh) 160-4.5 Mcg/Act Aero 2 PUFF INH Q12HR shortness of breathing #1 Ref 0 INHALER Docusate Calcium (Sm Stool Softener) 240 Mg Cap 240 MG PO HS prevent constipation #30 Ref 0 CAP Hydrocodone-Acetaminophen (Hydrocodone-Acetaminophen) 5-325 mg Tab 1 TAB PO Q4H PRN moderate to severe pain #30 Ref 0 TAB Metoprolol Tartrate (Metoprolol Tartrate) 25 Mg Tab 25 MG PO BID hypertension #60 Ref 0 TAB Morphine ER (Morphine ER) 15 Mg Tab 15 MG PO Q12HR PRN severe pain #28 Ref 0 TAB ([guaiFENesin ER]) 600 MG TABCR 600 MG PO BID chest congestion #20 Ref 0 TAB.SR Taina Gudino MD Apr 27, 2017 16:07
--- NOTE | 2017-05-02 11:18 | RSPPFT ---
DATE OF PROCEDURE: 04/26/17 COMMENTS: Spirometry demonstrates an FEV1 of 0.8 at 24% of predicted, FVC of 0.9 at 22%, FEF 25-75 at 30%. Post-bronchodilator study demonstrated significant improvements in the FEV1 and FVC. Lung volumes were not completed. Flow volume loops suggest a restrictive pattern. IMPRESSION: 1. Moderately severe restrictive disease. 2. Additional mild to moderate obstructive disease. 3. Significant response to use of bronchodilator indicating reversibility.
== END 2017-04-27 13:29 | disposition home health service (06) | DRG 853 ==
LOC: NEPC 19:10 → NEDA 21:58 → N07B 04-15 01:40 → HCIS 04-22 17:08 → HCIN 04-22 20:20
PROVIDERS: ADMIT Family Medicine; ATTEND Family Medicine
PROC: 0W9B30Z Drainage of Left Pleural Cavity with Drainage Device, Percutaneous Approach (ICD-10-PCS; 2017-04-15)
PROC: 0BBP4ZX Excision of Left Pleura, Percutaneous Endoscopic Approach, Diagnostic (ICD-10-PCS; 2017-04-22)
PROC: 0W9B40Z Drainage of Left Pleural Cavity with Drainage Device, Percutaneous Endoscopic Approach (ICD-10-PCS; 2017-04-22)
PROC: 0BDP4ZZ Extraction of Left Pleura, Percutaneous Endoscopic Approach (ICD-10-PCS; principal; 2017-04-22 14:43)
DX: A41.9 Sepsis, unspecified organism (principal); J18.9 Pneumonia, unspecified organism; J86.9 Pyothorax without fistula; J91.8 Pleural effusion in other conditions classified elsewhere; J94.8 Other specified pleural conditions; J98.11 Atelectasis; E83.51 Hypocalcemia; I10 Essential (primary) hypertension; L23.7 Allergic contact dermatitis due to plants, except food; E87.6 Hypokalemia; J45.909 Unspecified asthma, uncomplicated; E83.39 Other disorders of phosphorus metabolism; Z88.5 Allergy status to narcotic agent
CPT/HCPCS: 32555; 36600; 71010; 71020; 71250; 71275; 80048; 80053; 80069; 80074; 80202; 81001; 82042; 82150; 82550; 82805; 82945; 82948; 83605; 83615; 83690; 83735; 83880; 83986; 84155; 84157; 84484; 85007; 85025; 85027; 85610; 85730; 86612; 86703; 86850; 86900; 86901; 87015; 87040; 87070; 87102; 87116; 87205; 87206; 87899; 88112; 88305; 89051; 93005; 93306; 94060; 94150; 94640; 94664; 96365; 96375; C1729; J0295; J0456; J0610; J0692; J0696; J1170; J1644; J1885; J2175; J2270; J2370; J2405; J2920; J3010; J3370; J3480; J7050; J7613; Q9967